=== PATIENT | male | born 1930 | race Caucasian/White ===

== ENCOUNTER 2018-01-07 16:51 | Inpatient (IN) | payer MEDICARE ==
[~2018-01-07] VITALS: Ht 172.7 cm; Wt 82.6 kg
[~2018-01-07 16:51] MED LIST: ASPI325T8 PO; CARV25TA2 PO; CLOP75TA57 PO; GLIM2TAB2 PO; HYDR12.58 PO; ISOS120T2 PO; METF10007 PO; NITR0.4T22 SL; PRAV40TA2 PO
[2018-01-07] MEDS ORDERED: PRAV40TA2 PO (18:15)
[2018-01-07] MEDS ORDERED: ASPI-612 PO (18:15)
[2018-01-07] MEDS ORDERED: CLOP75TA PO (18:15)
[2018-01-07] MEDS ORDERED: FURO-68 PO (18:15)
[2018-01-07] MEDS ORDERED: GLIM2TAB2 PO (18:15)
[2018-01-07] MEDS ORDERED: CARV12.52 PO (18:15)
[2018-01-07] MEDS ORDERED: LISI-338 PO (18:15)
[2018-01-07] MEDS ORDERED: NITR0.4T22 SL (18:15)
[2018-01-07] MEDS ORDERED: METF10007 PO (18:15)
[2018-01-07] MEDS ORDERED: ISOS120T2 PO (18:15)
[2018-01-07] MEDS ORDERED: ACETAMINOPHEN 325 MG TABLET. PO PRN (18:30)
[2018-01-07] MEDS ORDERED: cloNIDine HCL 0.1 MG TABLET PO PRN (18:30)
[2018-01-07] MEDS ORDERED: oxyCODONE/APAP 5/325 1 TAB TABLET PO PRN (18:30)
[2018-01-07 19:00] VITALS: BP 134/49
[2018-01-07] MEDS: IV NORMAL SALINE 1000ML BAG 1,000 ML IV SCH (19:15)
[2018-01-07] MEDS: fentaNYL PF VIAL 100 MCG/2 ML VIAL IV PRN (19:20)
--- NOTE | 2018-01-07 19:55 | PDOC2 ---
CONSULT Date of Consult Date of Consult DATE: 01/07/18 TIME: 19:41 Reason for Consult Reason for Consult: [facility] Referring Physician Referring Physician: Jeremiaho Identification/Chief Complaint Chief Complaint [facility] pain Source Source: Chart review, Patient History of Present Illness Reason for Visit: 87 yo M with hx of RIH repair by Dr. Yen in 2014. Pt reports had testicle removed at that time. Had difficulty with constipation a recently and redeveloped [facility]. This was painful and unable to pushed back. He presented to ER at [facility] and hernia was able to be reduced, but it immediately comes back. Pt reports problems with constipation. Accompanied by supportive family. Past Medical History Cardiovascular: CAD, HTN, Aortic stenosis (pt reports needing to have a aortic valve replacement, but did not pursue secondary to risk of M&M), Other (angina) CENTRAL NERVOUS SYSTEM: CVA Past Surgical History Past Surgical History: Cholecystectomy Family History Family History: No Significant Social History No ALCOHOL: none Lives: with Family Current Medications Current Medications Current Medications Sodium Chloride 1,000 ml @ 100 mls/hr Q10H IV Last administered on 01/07/18at 19 :15; Start 01/07/18 at 18:30 Oxycodone/ Acetaminophen (Percocet 5/325) 1 tab PRN Q4HRS PRN PO MODERATE PAIN ; Start 01/07/18 at 18:30 Oxycodone/ Acetaminophen (Percocet 5/325) 2 tab PRN Q6HRS PRN PO SEVERE PAIN; Start 01/07/18 at 18:30 Clonidine HCl (Catapres) 0.1 mg PRN Q1HR PRN PO HYPERTENSION, SEE COMMENTS; Start 01/07/18 at 18:30 Fentanyl Citrate (Fentanyl 2ml Vial) 50 mcg PRN Q2HR PRN IV PAIN Last administered on 01/07/18at 19:20; Start 01/07/18 at 18:30 Ondansetron HCl (Zofran) 4 mg PRN Q6HRS PRN IV NAUSEA/VOMITING; Start 01/07/18 at 18:30 Acetaminophen (Tylenol) 650 mg PRN Q6HRS PRN PO MILD PAIN / TEMP; Start at 18:30 Cefazolin Sodium/ Dextrose 50 ml @ 100 mls/hr 1X PREOP IV ; Start 01/08/18 at 08:00; Stop 01/08/18 at 18:00; Status UNV Active Scripts Active Reported Isosorbide Mononitrate Er (Isosorbide Mononitrate) 120 Mg Tab.er.24h 2 Tab PO DAILY NITROGLYCERIN SubLingual (Nitroglycerin) 0.4 Mg Tab.subl 0.4 Mg SL PRN Q5MIN PRN Lisinopril 5 Mg Tablet 0.5 Tab PO DAILY Lasix (Furosemide) 40 Mg Tablet 1 Tab PO DAILY Carvedilol 12.5 Mg Tablet 1 Tab PO BID Clopidogrel (Clopidogrel Bisulfate) 75 Mg Tablet 1 Tab PO DAILY Pravastatin Sodium 40 Mg Tablet 1 Tab PO QHS Metformin Hcl 1,000 Mg Tablet 1,000 Mg PO BIDWMEALS Glimepiride 2 Mg Tablet 1 Tab PO BID Aspirin Ec (Aspirin) 81 Mg Tablet.dr 1 Tab PO DAILY Allergies Allergies: Coded Allergies: No Known Drug Allergies (Unverified , 01/07/18) ROS Cardiovascular: yes Chest Pain Gastrointestinal: Yes Nausea, Yes Abdominal Pain Physical Exam General: Alert, Oriented X3, Cooperative, mild distress HEENT: Atraumatic Lungs: Other (mild increased work of breathing) Abdomen: Soft, No tenderness, Other (large RIH, reducible, with immediate recurrent) Extremities: No clubbing, No cyanosis Skin: No rashes, No breakdown Neuro: Normal speech, Sensation intact Vitals VITALS Vital Signs Date Time Temp Pulse Resp B/P (MAP) Pulse Ox O2 Delivery O2 Flow Rate FiO2 01/07/18 19:20 Room Air Labs Labs WBC at [facility]-12.9, K 5.6, Cr 2.[address] at [facility]-Large RIH with colon, appendix and small bowel with concern for SBO, chronic lung infiltrate, LIH with fat Assessment/Plan Assessment/Plan RIH with concern for SBO, although was able to be reduced. Pt concerned of recurrence of pain, since it is large, protruding and painful. Pt does represent a poor surgical candidate, given untreated heart disease. However, given pain and concern for SBO, palliative surgery is necessary, regardless of risk. Pt and pt's family appear to understand this. Pt has eaten this evening. In addition, his Cr and K are concerning. Recommend hydration with plans for surgery in AM. R/R/B/A d/w pt and pt's family. Risks, including, but not limited to: bleeding , infection, damage to surrounding structures, risk of anesthesia, risk of recurrence. They appear to understand, their questions are answered and they elect to proceed. Thanks for consult! CATHY CAPONE MD Jan 07, 2018 19:55
[2018-01-07] MEDS ORDERED: SODIUM POLYSTYRENE SULFONATE 15 GM/60 ML ORAL.SUSP. PO ONE (20:15)
[2018-01-07] MEDS ORDERED: NITROGLYCERIN SUBLINGUAL 0.4 MG BOTTLE OF 25. SL PRN (20:30)
[2018-01-07] MEDS ORDERED: DEXTROSE 50% 25 GM / 50ML DISP.SYRIN. IV PRN (20:30)
[2018-01-07] MEDS: MORPHINE SULFATE 2 MG/ML VIAL. IV PRN ×2 (20:45→22:56)
[2018-01-07] MEDS: ATORVASTATIN CALCIUM 10 MG TABLET. PO SCH (20:53)
[2018-01-07] MEDS: CARVEDILOL 12.5 MG TABLET. PO SCH (21:02)
[2018-01-07 23:00] VITALS: BP 144/48
[2018-01-08] VITALS (20 sets, daily range): BP systolic 71–144; BP diastolic 34–69
[2018-01-08] MEDS: MORPHINE SULFATE 2 MG/ML VIAL. IV PRN ×4 (02:51→14:53)
[2018-01-08] MEDS: ONDANSETRON PF 4 MG/2 ML VIAL. IV PRN ×2 (02:51→10:04)
[2018-01-08] MEDS: fentaNYL PF VIAL 100 MCG/2 ML VIAL IV PRN ×2 (03:58→19:42)
[2018-01-08 05:10] LABS: BASO % 1 % (0-3); EOS % 1 % (0-3); HEMATOCRIT 38.5 % (39.0-53.0); HEMOGLOBIN 13.1 g/dL (13.0-17.5); LYMPH # 0.2 x10^3/uL (1.0-4.8); LYMPH % 5 % (24-48); MEAN CORPUSCULAR HEMOGLOBIN 31 pg (25-35); MEAN CORPUSCULAR HGB CONC 34 g/dL (31-37); MEAN CORPUSCULAR VOLUME 91 fL (79-100); MONO # 0.2 x10^3/uL (0.0-1.1); MONO % 5 % (0-9); NEUT # 4.4 x10^3uL (1.8-7.7); NEUT % 89 % (31-73); PLATELET COUNT 215 x10^3/uL (140-400); RED BLOOD COUNT 4.21 x10^6/uL (4.30-5.70); RED CELL DISTRIBUTION WIDTH 14.9 % (11.5-14.5); WHITE BLOOD COUNT 4.9 x10^3/uL (4.0-11.0)
[2018-01-08 05:19] LABS: CALCIUM 9.1 mg/dL (8.5-10.1); GFR 31.6
[2018-01-08] MEDS: IV NORMAL SALINE 1000ML BAG 1,000 ML IV SCH ×4 (05:30→23:51)
[2018-01-08 05:38] LABS: PROTHROMBIN TIME PATIENT 14.2 SEC (11.7-14.0)
[2018-01-08] MEDS ORDERED: BUPIVACAINE-EPI 0.5%-1:200000 50 ML VIAL. ONE (06:22)
[2018-01-08 07:24] LABS: % BANDS 16 % (0-9); % LYMPHS 2 % (24-48); % MONOS 1 % (0-10); % SEGS 81 % (35-66); PLT ESTIMATE ADEQUATE (ADEQUATE)
[2018-01-08] MEDS ORDERED: fentaNYL PF VIAL 100 MCG/2 ML VIAL ONE (07:34)
[2018-01-08] MEDS ORDERED: ROCURONIUM 50 MG/5 ML VIAL. ONE (07:34)
[2018-01-08] MEDS ORDERED: DEXAMETHASONE SOD PHOS 20 MG/5 ML VIAL. ONE (07:37)
[2018-01-08] MEDS ORDERED: ONDANSETRON PF 4 MG/2 ML VIAL. ONE (07:37)
[2018-01-08] MEDS ORDERED: PROPOFOL 20 ML IV ONE (07:37)
[2018-01-08] MEDS: INSULIN LISPRO 300 UNITS/3 ML INSULN.PEN. SQ SCH ×3 (08:00→14:00)
[2018-01-08] MEDS ORDERED: IV RINGERS,LACTATED 1000ML 1,000 ML IV SCH ×2 (08:01→13:19)
[2018-01-08] MEDS ORDERED: HYDROmorphone 2 MG/ML VIAL IV PRN (08:15)
[2018-01-08] MEDS ORDERED: fentaNYL PF VIAL 100 MCG/2 ML VIAL IV PRN ×2 (08:15)
[2018-01-08] MEDS ORDERED: LIDOCAINE 1% PF 2 ML VIAL. ID PRN (08:15)
[2018-01-08] MEDS ORDERED: PROCHLORPERAZINE 10 MG/2 ML VIAL. IV PRN (08:15)
[2018-01-08] MEDS ORDERED: ONDANSETRON PF 4 MG/2 ML VIAL. IV PRN (08:15)
[2018-01-08] MEDS ORDERED: MORPHINE SULFATE 2 MG/ML VIAL. IV PRN ×2 (08:15→13:30)
[2018-01-08] MEDS: CARVEDILOL 12.5 MG TABLET. PO SCH ×2 (08:21→17:00)
[2018-01-08] MEDS: ISOSORBIDE MONONITRATE ER 30 MG TAB.ER.24H PO SCH (09:00)
[2018-01-08] MEDS: FUROSEMIDE 40 MG TABLET. PO SCH (09:00)
--- NOTE | 2018-01-08 09:08 | PDOC ---
SURGICAL PROGRESS NOTE Subjective 87 yo M with [facility], pt reports persistent RIH pain, coughing up bloody mucous. No N/V. No flatus or stool. Voiding. Extensively d/w pt and pt's very supportive family. Pt is high risk for perioperative complications. Have asked cards to evaluate. However, pt reports significant pain, not addressed by narcotic pain meds. R/R/B/A d/w pt and pt's family. Risks, including, but not limited to: bleeding , infection, damage to surrounding structures, risk of anesthesia, risk of recurrence. They appear to understand, their questions are answered and they elect to proceed. Will start IV abx for pneumonia (bloody sputum, chronic infiltrate on CT). Vital Signs Vital Signs Date Time Temp Pulse Resp B/P (MAP) Pulse Ox O2 Delivery O2 Flow Rate FiO2 01/08/18 08:21 63 114/35 01/08/18 07:50 18 100 Room Air 01/08/18 07:00 98.1 98.1 I&O Intake and Output 01/08/18 07:00 Output Total 500 ml Balance -500 ml Output Urine Total 500 ml Labs Laboratory Tests Test 01/07/18 17:53 01/08/18 03:45 Glucose (Fingerstick) 178 mg/dL (70-99) White Blood Count 4.9 x10^3/uL (4.0-11.0) Red Blood Count 4.21 x10^6/uL (4.30-5.70) Hemoglobin 13.1 g/dL (13.0-17.5) Hematocrit 38.5 % (39.0-53.0) Mean Corpuscular Volume 91 fL (79-100) Mean Corpuscular Hemoglobin 31 pg (25-35) Mean Corpuscular Hemoglobin Concent 34 g/dL (31-37) Red Cell Distribution Width 14.9 % (11.5-14.5) Platelet Count 215 x10^3/uL (140-400) Neutrophils (%) (Auto) 89 % (31-73) Lymphocytes (%) (Auto) 5 % (24-48) Monocytes (%) (Auto) 5 % (0-9) Eosinophils (%) (Auto) 1 % (0-3) Basophils (%) (Auto) 1 % (0-3) Neutrophils # (Auto) 4.4 x10^3uL (1.8-7.7) Lymphocytes # (Auto) 0.2 x10^3/uL (1.0-4.8) Monocytes # (Auto) 0.2 x10^3/uL (0.0-1.1) Eosinophils # (Auto) 0.0 x10^3/uL (0.0-0.7) Basophils # (Auto) 0.0 x10^3/uL (0.0-0.2) Segmented Neutrophils % 81 % (35-66) Band Neutrophils % 16 % (0-9) Lymphocytes % 2 % (24-48) Monocytes % 1 % (0-10) Platelet Estimate Adequate (ADEQUATE) Prothrombin Time 14.2 SEC (11.7-14.0) Prothromb Time International Ratio 1.2 (0.8-1.1) Sodium Level 140 mmol/L (136-145) Potassium Level 5.0 mmol/L (3.5-5.1) Chloride Level 104 mmol/L (98-107) Carbon Dioxide Level 29 mmol/L (21-32) Anion Gap 7 (6-14) Blood Urea Nitrogen 52 mg/dL (8-26) Creatinine 2.0 mg/dL (0.7-1.3) Estimated GFR (Cockcroft-Gault) 31.6 Glucose Level 187 mg/dL (70-99) Calcium Level 9.1 mg/dL (8.5-10.1) Laboratory Tests Test 01/07/18 17:53 01/08/18 03:45 Glucose (Fingerstick) 178 mg/dL (70-99) White Blood Count 4.9 x10^3/uL (4.0-11.0) Red Blood Count 4.21 x10^6/uL (4.30-5.70) Hemoglobin 13.1 g/dL (13.0-17.5) Hematocrit 38.5 % (39.0-53.0) Mean Corpuscular Volume 91 fL (79-100) Mean Corpuscular Hemoglobin 31 pg (25-35) Mean Corpuscular Hemoglobin Concent 34 g/dL (31-37) Red Cell Distribution Width 14.9 % (11.5-14.5) Platelet Count 215 x10^3/uL (140-400) Neutrophils (%) (Auto) 89 % (31-73) Lymphocytes (%) (Auto) 5 % (24-48) Monocytes (%) (Auto) 5 % (0-9) Eosinophils (%) (Auto) 1 % (0-3) Basophils (%) (Auto) 1 % (0-3) Neutrophils # (Auto) 4.4 x10^3uL (1.8-7.7) Lymphocytes # (Auto) 0.2 x10^3/uL (1.0-4.8) Monocytes # (Auto) 0.2 x10^3/uL (0.0-1.1) Eosinophils # (Auto) 0.0 x10^3/uL (0.0-0.7) Basophils # (Auto) 0.0 x10^3/uL (0.0-0.2) Segmented Neutrophils % 81 % (35-66) Band Neutrophils % 16 % (0-9) Lymphocytes % 2 % (24-48) Monocytes % 1 % (0-10) Platelet Estimate Adequate (ADEQUATE) Prothrombin Time 14.2 SEC (11.7-14.0) Prothromb Time International Ratio 1.2 (0.8-1.1) Sodium Level 140 mmol/L (136-145) Potassium Level 5.0 mmol/L (3.5-5.1) Chloride Level 104 mmol/L (98-107) Carbon Dioxide Level 29 mmol/L (21-32) Anion Gap 7 (6-14) Blood Urea Nitrogen 52 mg/dL (8-26) Creatinine 2.0 mg/dL (0.7-1.3) Estimated GFR (Cockcroft-Gault) 31.6 Glucose Level 187 mg/dL (70-99) Calcium Level 9.1 mg/dL (8.5-10.1) CATHY CAPONE MD Jan 08, 2018 09:08
[2018-01-08] MEDS ORDERED: PHENYLEPHRINE in 0.9% NACL PF 1 MG/10 ML SYRINGE. IV ONE (11:55)
--- NOTE | 2018-01-08 12:13 | PDOC2 ---
CONSULT Date of Consult Date of Consult DATE: 01/08/18 TIME: 12:04 Reason for Consult Reason for Consult: Surgical clearance Referring Physician Referring Physician: Dr Jaimes Identification/Chief Complaint Chief Complaint Abdominal and groin pain History of Present Illness Reason for Visit: This patient is an 87-year-old gentleman that has a known history of coronary artery disease that is status post CABG and also has valvular heart disease with aortic stenosis and aortic insufficiency. He had an inguinal hernia repair done about 3 years ago but he had a recurrence of the hernia and comes in with a lot of abdominal pain and initially went to the emergency room at [facility] where they were able to reduce it but he comes right back out. Presently he is in a lot of pain. He was seen by the surgeons and he needs to have the hernia reoperated and also may need to have bowel resection for a possibly strangulated segment of bowel. Patient has known angina and he frequently takes nitroglycerin for that but is not having any chest pains at this time. He has been seen by a installation supervisor at another institution and he was judged not to be a good candidate for aortic valve replacement. The patient has no cardiac complaints at this time only about that the groin and abdominal pain. He's had a permanent pacemaker for over 25 years and he is on his fifth generator. The patient is 100% paced. Past Medical History Cardiovascular: CAD, HTN, Aortic stenosis (pt reports needing to have a aortic valve replacement, but did not pursue secondary to risk of M&M), Valve insufficiency, Other (angina) CENTRAL NERVOUS SYSTEM: CVA Past Surgical History Past Surgical History: Cholecystectomy Family History Family History: No Significant Social History No ALCOHOL: none Lives: with Family Current Medications Current Medications Current Medications Sodium Chloride 1,000 ml @ 100 mls/hr Q10H IV Last administered on 01/08/18at 05 :30; Start 01/07/18 at 18:30 Oxycodone/ Acetaminophen (Percocet 5/325) 1 tab PRN Q4HRS PRN PO MODERATE PAIN ; Start 01/07/18 at 18:30 Oxycodone/ Acetaminophen (Percocet 5/325) 2 tab PRN Q6HRS PRN PO SEVERE PAIN Last administered on 01/07/18at 23:00; Start 01/07/18 at 18:30 Clonidine HCl (Catapres) 0.1 mg PRN Q1HR PRN PO HYPERTENSION, SEE COMMENTS; Start 01/07/18 at 18:30 Fentanyl Citrate (Fentanyl 2ml Vial) 50 mcg PRN Q2HR PRN IV PAIN Last administered on 01/08/18at 03:58; Start 01/07/18 at 18:30 Ondansetron HCl (Zofran) 4 mg PRN Q6HRS PRN IV NAUSEA/VOMITING Last administered on 01/08/18at 10:04; Start 01/07/18 at 18:30 Acetaminophen (Tylenol) 650 mg PRN Q6HRS PRN PO MILD PAIN / TEMP; Start at 18:30 Cefazolin Sodium/ Dextrose 50 ml @ 100 mls/hr 1X PREOP IV ; Start 01/08/18 at 08:00; Stop 01/08/18 at 18:00 Morphine Sulfate (Morphine Sulfate) 2 mg PRN Q2HR PRN IV PAIN Last administered on 01/08/18at 09:24; Start 01/07/18 at 20:00 Sodium Polystyrene Sulfonate (Kayexalate) 15 gm 1X ONCE PO Last administered on 01/07/18at 20:48; Start 01/07/18 at 20:15; Stop 01/07/18 at 20:16; Status DC Carvedilol (Coreg) 12.5 mg BIDWMEALS PO Last administered on 01/08/18at 08:21; Start 01/07/18 at 21:00 Furosemide (Lasix) 40 mg DAILY PO ; Start 01/08/18 at 09:00 Nitroglycerin (Nitrostat) 0.4 mg PRN Q5MIN PRN SL CHEST PAIN; Start 01/07/18 at 20:30 Isosorbide Mononitrate (Imdur) 240 mg DAILY PO ; Start 01/08/18 at 09:00 Atorvastatin Calcium (Lipitor) 10 mg QHS PO Last administered on 01/07/18at 20:53 ; Start 01/07/18 at 21:00 Insulin Human Lispro (HumaLOG) 0-9 UNITS TIDWMEALS SQ ; Start 01/08/18 at 08:00 Dextrose (Dextrose 50%-Water Syringe) 12.5 gm PRN Q15MIN PRN IV SEE COMMENTS; Start 01/07/18 at 20:30 Bupivacaine HCl/ Epinephrine Bitart (Marcaine-Epi 0.5%-1:[id number]) 50 ml STK-MED ONCE .ROUTE ; Start 01/08/18 at 06:22; Stop 01/08/18 at 07:22; Status DC Fentanyl Citrate (Fentanyl 2ml Vial) 100 mcg STK-MED ONCE .ROUTE ; Start at 07:34; Stop 01/08/18 at 07:35; Status DC Rocuronium [place] (Zemuron) 50 mg STK-MED ONCE .ROUTE ; Start 01/08/18 at 07:34 ; Stop 01/08/18 at 07:35; Status DC Propofol 20 ml @ As Directed STK-MED ONCE IV ; Start 01/08/18 at 07:37; Stop 01/08 at 07:38; Status DC Dexamethasone Sodium Phosphate (Decadron) 20 mg STK-MED ONCE .ROUTE ; Start 01/08 at 07:37; Stop 01/08/18 at 07:38; Status DC Ondansetron HCl (Zofran) 4 mg STK-MED ONCE .ROUTE ; Start 01/08/18 at 07:37; Stop 01/08/18 at 07:38; Status DC Ondansetron HCl (Zofran) 4 mg PRN Q6HRS PRN IV NAUSEA/VOMITING; Start 01/08/18 at 08:15; Stop 01/09/18 at 08:14 Fentanyl Citrate (Fentanyl 2ml Vial) 25 mcg PRN Q5MIN PRN IV MILD PAIN; Start 01/08/18 at 08:15; Stop 01/09/18 at 08:14 Fentanyl Citrate (Fentanyl 2ml Vial) 50 mcg PRN Q5MIN PRN IV MODERATE TO SEVERE PAIN; Start 01/08/18 at 08:15; Stop 01/09/18 at 08:14 Morphine Sulfate (Morphine Sulfate) 1 mg PRN Q10MIN PRN IV SEVERE PAIN; Start 01/08/18 at 08:15; Stop 01/09/18 at 08:14 Ringer's Solution 1,000 ml @ 30 mls/hr Q24H IV ; Start 01/08/18 at 08:01; Stop 01/08/18 at 20:00 Lidocaine HCl (Xylocaine-Mpf 1% 2ml Vial) 2 ml 1X PRN PRN ID IV START; Start 9 /2/18 at 08:15; Stop 01/09/18 at 08:14 Hydromorphone HCl (Dilaudid) 0.5 mg PRN Q10MIN PRN IV SEV PAIN, Second choice; Start 01/08/18 at 08:15; Stop 01/09/18 at 08:14 Prochlorperazine Edisylate (Compazine) 5 mg PACU PRN PRN IV NAUSEA, MRX1; Start 01/08/18 at 08:15; Stop 01/09/18 at 08:14 Phenylephrine HCl (PHENYLEPHRINE in 0.9% NACL PF) 1 mg STK-MED ONCE IV ; Start 01/08/18 at 11:55; Stop 01/08/18 at 11:56; Status DC Active Scripts Active Reported Isosorbide Mononitrate Er (Isosorbide Mononitrate) 120 Mg Tab.er.24h 2 Tab PO DAILY NITROGLYCERIN SubLingual (Nitroglycerin) 0.4 Mg Tab.subl 0.4 Mg SL PRN Q5MIN PRN Lisinopril 5 Mg Tablet 0.5 Tab PO DAILY Lasix (Furosemide) 40 Mg Tablet 1 Tab PO DAILY Carvedilol 12.5 Mg Tablet 1 Tab PO BID Clopidogrel (Clopidogrel Bisulfate) 75 Mg Tablet 1 Tab PO DAILY Pravastatin Sodium 40 Mg Tablet 1 Tab PO QHS Metformin Hcl 1,000 Mg Tablet 1,000 Mg PO BIDWMEALS Glimepiride 2 Mg Tablet 1 Tab PO BID Aspirin Ec (Aspirin) 81 Mg Tablet.dr 1 Tab PO DAILY Allergies Allergies: Coded Allergies: No Known Drug Allergies (Unverified , 01/07/18) Physical Exam General: Alert, Oriented X3, Cooperative HEENT: Atraumatic, PERRLA Lungs: Clear to auscultation Heart: Regular rate, Other (1 to 2/6 systolic murmur and 2/6 diastolic murmur) Abdomen: Other (abdominal tenderness. Bowel sounds are increased) Extremities: No edema Psych/Mental Status: Mental status NL Vitals VITALS Vital Signs Date Time Temp Pulse Resp B/P (MAP) Pulse Ox O2 Delivery O2 Flow Rate FiO2 01/08/18 10:00 17 100 Room Air 01/08/18 08:21 63 114/35 01/08/18 07:00 98.1 98.1 Labs Labs Laboratory Tests Test 01/07/18 17:53 01/08/18 03:45 Glucose (Fingerstick) 178 mg/dL (70-99) White Blood Count 4.9 x10^3/uL (4.0-11.0) Red Blood Count 4.21 x10^6/uL (4.30-5.70) Hemoglobin 13.1 g/dL (13.0-17.5) Hematocrit 38.5 % (39.0-53.0) Mean Corpuscular Volume 91 fL (79-100) Mean Corpuscular Hemoglobin 31 pg (25-35) Mean Corpuscular Hemoglobin Concent 34 g/dL (31-37) Red Cell Distribution Width 14.9 % (11.5-14.5) Platelet Count 215 x10^3/uL (140-400) Neutrophils (%) (Auto) 89 % (31-73) Lymphocytes (%) (Auto) 5 % (24-48) Monocytes (%) (Auto) 5 % (0-9) Eosinophils (%) (Auto) 1 % (0-3) Basophils (%) (Auto) 1 % (0-3) Neutrophils # (Auto) 4.4 x10^3uL (1.8-7.7) Lymphocytes # (Auto) 0.2 x10^3/uL (1.0-4.8) Monocytes # (Auto) 0.2 x10^3/uL (0.0-1.1) Eosinophils # (Auto) 0.0 x10^3/uL (0.0-0.7) Basophils # (Auto) 0.0 x10^3/uL (0.0-0.2) Segmented Neutrophils % 81 % (35-66) Band Neutrophils % 16 % (0-9) Lymphocytes % 2 % (24-48) Monocytes % 1 % (0-10) Platelet Estimate Adequate (ADEQUATE) Prothrombin Time 14.2 SEC (11.7-14.0) Prothromb Time International Ratio 1.2 (0.8-1.1) Sodium Level 140 mmol/L (136-145) Potassium Level 5.0 mmol/L (3.5-5.1) Chloride Level 104 mmol/L (98-107) Carbon Dioxide Level 29 mmol/L (21-32) Anion Gap 7 (6-14) Blood Urea Nitrogen 52 mg/dL (8-26) Creatinine 2.0 mg/dL (0.7-1.3) Estimated GFR (Cockcroft-Gault) 31.6 Glucose Level 187 mg/dL (70-99) Calcium Level 9.1 mg/dL (8.5-10.1) Laboratory Tests Test 01/07/18 17:53 01/08/18 03:45 Glucose (Fingerstick) 178 mg/dL (70-99) White Blood Count 4.9 x10^3/uL (4.0-11.0) Red Blood Count 4.21 x10^6/uL (4.30-5.70) Hemoglobin 13.1 g/dL (13.0-17.5) Hematocrit 38.5 % (39.0-53.0) Mean Corpuscular Volume 91 fL (79-100) Mean Corpuscular Hemoglobin 31 pg (25-35) Mean Corpuscular Hemoglobin Concent 34 g/dL (31-37) Red Cell Distribution Width 14.9 % (11.5-14.5) Platelet Count 215 x10^3/uL (140-400) Neutrophils (%) (Auto) 89 % (31-73) Lymphocytes (%) (Auto) 5 % (24-48) Monocytes (%) (Auto) 5 % (0-9) Eosinophils (%) (Auto) 1 % (0-3) Basophils (%) (Auto) 1 % (0-3) Neutrophils # (Auto) 4.4 x10^3uL (1.8-7.7) Lymphocytes # (Auto) 0.2 x10^3/uL (1.0-4.8) Monocytes # (Auto) 0.2 x10^3/uL (0.0-1.1) Eosinophils # (Auto) 0.0 x10^3/uL (0.0-0.7) Basophils # (Auto) 0.0 x10^3/uL (0.0-0.2) Segmented Neutrophils % 81 % (35-66) Band Neutrophils % 16 % (0-9) Lymphocytes % 2 % (24-48) Monocytes % 1 % (0-10) Platelet Estimate Adequate (ADEQUATE) Prothrombin Time 14.2 SEC (11.7-14.0) Prothromb Time International Ratio 1.2 (0.8-1.1) Sodium Level 140 mmol/L (136-145) Potassium Level 5.0 mmol/L (3.5-5.1) Chloride Level 104 mmol/L (98-107) Carbon Dioxide Level 29 mmol/L (21-32) Anion Gap 7 (6-14) Blood Urea Nitrogen 52 mg/dL (8-26) Creatinine 2.0 mg/dL (0.7-1.3) Estimated GFR (Cockcroft-Gault) 31.6 Glucose Level 187 mg/dL (70-99) Calcium Level 9.1 mg/dL (8.5-10.1) Assessment/Plan Assessment/Plan Patient with a hernia that appears to be incarcerated at this time and needs to go for surgery to repair the hernia as well as a possible bowel resection. With his history of coronary artery disease, angina and valvular disease with aortic stenosis and aortic insufficiency this patient is a high surgical risk. If he has an incarcerated loop of bowel in the hernia this would not be a survivable situation for him therefore I think that there is more risky not doing the surgery than the is in doing it. I have discussed this with the patient as well as multiple family members and I have answered their questions. They have decided to proceed with the surgery and are aware of the risks involved including the possibility of . An informed consent was obtained. I will follow the patient with you. Thank you very much for asking me to participate in the care of this patient. SUZANNA PETERSON MD Jan 08, 2018 12:13
[2018-01-08] MEDS ORDERED: GLYCOPYRROLATE 1 MG/5 ML VIAL. ONE (12:20)
[2018-01-08] MEDS ORDERED: NEOSTIGMINE METHYLSULFATE 5 MG/5 ML SYRINGE. ONE (12:20)
[2018-01-08] MEDS ORDERED: SEVOFLURANE 61 TO 120 MINUTES. IH ONE (12:30)
[2018-01-08] MEDS: PROPOFOL 100 ML IV PRN ×2 (12:45→21:13)
[2018-01-08] MEDS ORDERED: PROPOFOL 100 ML IV ONE (12:53)
[2018-01-08] MEDS ORDERED: IV NORMAL SALINE 500ML BAG 500 ML IV ONE (13:15)
[2018-01-08] MEDS ORDERED: ALBUMIN HUMAN 5% 500 ML IV ONE (13:15)
[2018-01-08] MEDS ORDERED: 0.9 % SODIUM CHLORIDE 10 ML DISP.SYRIN. IV PRN (13:30)
--- NOTE | 2018-01-08 13:30 | PDOC4 ---
OPERATIVE NOTE Date: Date: Jan 08, 2018 Pre-Op Diagnosis: Incarcerated right inguinal hernia with obstruction Post-Op Diagnosis: same Procedure Performed: right inguinal hernia repair with mesh Surgeon: Spencer Capone Anesthesia Type: GETA plus local Blood Loss: minimal Specimans Obtained: hernia sac Findings: scaring from previous repair, indirect hernia with viable small bowel Complications: none Operative Note: After obtaining informed consent, and D/w Cardiology, patient was taken to OR, induced under GETA and prepped in the usual fashion. Large amount of stomach contents were evacuated via NGT. Transfer incision was made through previous scar right groin. Subcutaneous tissues divided. External oblique partially opened. Large hernia sac encountered, appeared to be soft and viable. Spermatic cord chronically adherent but dissected off. Hernia sac sharply opened. Viscera not currently within sac, and suspect was reduced with NGT and induction. Terminal ileum visualized and appeared viable. Hernia sac excised and sent to pathology. Peritoneum closed with 3 0 vicryl. Extra large mesh plug placed and tacked with 0 vicryl. Mesh only brought around spermatic cord and placed under external oblique and tacked with 0 vicryl. External oblique closed with 0 vicryl. Subcutaneous tissues closed with several layers of 0 vicryl. Skin repaired with 4 0 monocryl. Dressing placed. Wound class 1, clean. Patient tolerated procedure well and sent to ICU in stable, intubated condition. Patient remains very tenuous given extensive comorbidities. All counts correct. CATHY CAPONE MD Jan 08, 2018 13:30
--- NOTE | 2018-01-08 13:51 | RAD ---
CHEST AP ONLY Clinical indications: ETT PLACEMENT, ASPIRATION comparison: None available. Findings: ET tube is in place and the tip is located 1 cm above the level of the lexie. NG tube is in place and the tip is seen at the gastric cardia. Proximal port is located within the distal esophagus. Bipolar atrioventricular pacemaker is in place via a left subclavian approach. No pneumothorax is seen. Mild bilateral peribronchial thickening is seen. No lung consolidation or pleural effusion is seen. There is mild elevation of the right hemidiaphragm. The heart size is normal. A sternotomy is evident. The mediastinum is unremarkable. The pulmonary vasculature is unremarkable. Old healed left rib cage fractures are seen. IMPRESSION: NG tube tip is located within the gastric cardia. The proximal port of the NG tube is located within the distal esophagus. Therefore, the tube may be advanced by 14 cm. ET tube tip is located 1 cm above the level of the lexie. Mild bilateral peribronchial thickening consistent with acute or chronic bronchitis. No consolidative pneumonia is evident. There is mild elevation of the right hemidiaphragm. No pneumothorax is seen. Electronically signed by: Lee Macias MD (01/08/2018 1:47 PM) [facility]
--- NOTE | 2018-01-08 14:24 | HP ---
ADMIT DATE: 01/08/2018 CHIEF COMPLAINT: Inguinal hernia pain. HISTORY OF PRESENT ILLNESS: The patient is a pleasant 87-year-old male who basically presented with abdominal pain, was noted to have a possible incarcerated hernia. I discussed the case with the ER physician and his production illustrator, Dr. Salvador, and Dr. Elizabeth. The patient has been taken to the OR emergently. Dr. Elizabeth states he really did not find any bowel, but had to release the hernia and repair it. He has now been admitted to the ICU, seems to be in respiratory failure, in room 108. PAST MEDICAL HISTORY: Coronary artery disease, coronary artery bypass, chronic angina, aortic insufficiency, hyperlipidemia, CHF, hypertension, diabetes. ALLERGIES: None. FAMILY HISTORY: Hypertension. SOCIAL HISTORY: He is retired. He does not drink, smoke or take drugs. MEDICATIONS: Reviewed, please refer to the MRAD. He is on 11 medications. REVIEW OF SYSTEMS: Unable to obtain. The patient is on the vent. PHYSICAL EXAMINATION: VITAL SIGNS: Temperature afebrile, pulse 100, respirations 20, blood pressure 142/90. GENERAL: He is on the vent, just arrived to the ICU. A lot of people here present, even anesthesia, the production illustrator and multiple nurses. The patient appears quite ill. HEART: He has S1, S2 with a loud systolic and diastolic murmur. LUNGS: Clear. ABDOMEN: Soft and tender. There is clean, dry and intact dressing. ENDOCRINE: No thyromegaly. LYMPHATICS: No cervical nodes. HEMATOPOIETIC: No bruising. NEUROLOGICAL: He is sedated. LABORATORY DATA: White count 5, hemoglobin 13, platelets 215. Electrolytes are normal other than a BUN of 52 and a creatinine of 2, glucose is 187. ASSESSMENT AND PLAN: 1. Postop right inguinal hernia repair with mesh. 2. Respiratory failure. The patient has been admitted to the ICU. We will consult Pulmonary for vent weaning. Regarding his elevated creatinine and BUN, we will go ahead and consult Dr. Null. Gentle IV fluids, IV propofol for sedation. Wound care. We will try to resume his home meds. PROGNOSIS: Guarded. NGHIA BELL DO DR: HESHAM/tania JOB#: [id number] / [id number]
[2018-01-08 14:25] LABS: BASO % 0 % (0-3); EOS % 0 % (0-3); HEMATOCRIT 32.7 % (39.0-53.0); HEMOGLOBIN 11.1 g/dL (13.0-17.5); LYMPH # 0.1 x10^3/uL (1.0-4.8); LYMPH % 2 % (24-48); MEAN CORPUSCULAR HEMOGLOBIN 31 pg (25-35); MEAN CORPUSCULAR HGB CONC 34 g/dL (31-37); MEAN CORPUSCULAR VOLUME 92 fL (79-100); MONO # 0.5 x10^3/uL (0.0-1.1); MONO % 10 % (0-9); NEUT # 4.5 x10^3uL (1.8-7.7); NEUT % 87 % (31-73); PLATELET COUNT 178 x10^3/uL (140-400); RED BLOOD COUNT 3.56 x10^6/uL (4.30-5.70); WHITE BLOOD COUNT 5.1 x10^3/uL (4.0-11.0)
[2018-01-08 14:31] LABS: BASE EXCESS ABG -5 mmol/L (-3-3); HCO3 ABG 20 mmol/L (21-28); PCO2 ABG 35 mmHg (35-46); PO2 ABG 494 mmHg (65-108); SAT O2 ABG 99 % (92-99)
[2018-01-08 14:45] LABS: FIO2 ABG 100
[2018-01-08 14:45] LABS: ALBUMIN/GLOBULIN RATIO 0.9 (1.0-1.7); CALCIUM 8.2 mg/dL (8.5-10.1); CREATININE 1.8 mg/dL (0.7-1.3); GFR 35.7; POTASSIUM 4.9 mmol/L (3.5-5.1); TOTAL BILIRUBIN 0.7 mg/dL (0.2-1.0); TOTAL PROTEIN 6.2 g/dL (6.4-8.2)
[2018-01-08] MEDS ORDERED: NOREPINEPHRIN 8MG/250ML PREMIX 250 ML IV PRN (19:15)
[2018-01-08] MEDS: ATORVASTATIN CALCIUM 10 MG TABLET. PO SCH (21:00)
[2018-01-08] MEDS: ENOXAPARIN 40 MG/0.4 ML SYRINGE. SQ SCH (21:14)
[2018-01-09] VITALS (24 sets, daily range): BP systolic 90–138; BP diastolic 39–63
[2018-01-09] MEDS: PROPOFOL 100 ML IV PRN (06:22)
[2018-01-09 06:23] LABS: BASO % 0 % (0-3); EOS % 0 % (0-3); HEMATOCRIT 29.8 % (39.0-53.0); HEMOGLOBIN 10.1 g/dL (13.0-17.5); LYMPH # 0.4 x10^3/uL (1.0-4.8); LYMPH % 9 % (24-48); MEAN CORPUSCULAR HEMOGLOBIN 31 pg (25-35); MEAN CORPUSCULAR HGB CONC 34 g/dL (31-37); MEAN CORPUSCULAR VOLUME 91 fL (79-100); MONO # 0.9 x10^3/uL (0.0-1.1); MONO % 19 % (0-9); NEUT # 3.3 x10^3uL (1.8-7.7); NEUT % 72 % (31-73); PLATELET COUNT 150 x10^3/uL (140-400); RED BLOOD COUNT 3.27 x10^6/uL (4.30-5.70); RED CELL DISTRIBUTION WIDTH 14.7 % (11.5-14.5); WHITE BLOOD COUNT 4.6 x10^3/uL (4.0-11.0)
[2018-01-09 06:36] LABS: CREATININE 1.7 mg/dL (0.7-1.3); GFR 38.1; POTASSIUM 4.3 mmol/L (3.5-5.1)
[2018-01-09] MEDS: CARVEDILOL 12.5 MG TABLET. PO SCH ×2 (08:00→12:47)
[2018-01-09] MEDS: INSULIN LISPRO 300 UNITS/3 ML INSULN.PEN. SQ SCH ×3 (08:00→17:00)
[2018-01-09] MEDS: ISOSORBIDE MONONITRATE ER 30 MG TAB.ER.24H PO SCH (08:11)
[2018-01-09] MEDS: FUROSEMIDE 40 MG TABLET. PO SCH (08:12)
[2018-01-09] MEDS: ENOXAPARIN 40 MG/0.4 ML SYRINGE. SQ SCH (08:30)
--- NOTE | 2018-01-09 08:37 | PDOC2 ---
CONSULT Date of Consult Date of Consult DATE: 01/09/18 TIME: 08:26 Reason for Consult Reason for Consult: Kidney failure Identification/Chief Complaint Chief Complaint Unable to Obtain, Pt On vent Source Source: Chart review History of Present Illness Reason for Visit: The patient is 87-year-old CM presented with abdominal pain, was noted to have a possible incarcerated hernia. He was taken to the OR emergently. s/p release and repair of Inguinal hernia. He is in ICU for respiratory failure, He has a hx of RIH repair in 2014. He had testicle removed at that time. He was having some difficulty with constipation recently and redeveloped RIH which was painful . As per Nursing , no new concerns Voiced. UOP has been fair. BP low - he is on propofol as well Past Medical History Cardiovascular: CAD, HTN, Aortic stenosis (pt reports needing to have a aortic valve replacement, but did not pursue secondary to risk of M&M), Valve insufficiency, Other (angina) CENTRAL NERVOUS SYSTEM: CVA Past Surgical History Past Surgical History: Cholecystectomy Family History Family History: No Significant Social History No ALCOHOL: none Lives: with Family Current Medications Current Medications Current Medications Sodium Chloride 1,000 ml @ 100 mls/hr Q10H IV Last administered on 01/08/18at 23 :51; Start 01/07/18 at 18:30 Oxycodone/ Acetaminophen (Percocet 5/325) 1 tab PRN Q4HRS PRN PO MODERATE PAIN ; Start 01/07/18 at 18:30 Oxycodone/ Acetaminophen (Percocet 5/325) 2 tab PRN Q6HRS PRN PO SEVERE PAIN Last administered on 01/07/18at 23:00; Start 01/07/18 at 18:30 Clonidine HCl (Catapres) 0.1 mg PRN Q1HR PRN PO HYPERTENSION, SEE COMMENTS; Start 01/07/18 at 18:30 Fentanyl Citrate (Fentanyl 2ml Vial) 50 mcg PRN Q2HR PRN IV SEVERE PAIN Last administered on 01/08/18at 19:42; Start 01/07/18 at 18:30 Ondansetron HCl (Zofran) 4 mg PRN Q6HRS PRN IV NAUSEA/VOMITING Last administered on 01/08/18at 10:04; Start 01/07/18 at 18:30; Stop 01/08/18 at 15:25; Status DC Acetaminophen (Tylenol) 650 mg PRN Q6HRS PRN PO MILD PAIN / TEMP; Start at 18:30 Cefazolin Sodium/ Dextrose 50 ml @ 100 mls/hr 1X PREOP IV Last administered on 01/08/18at 12:24; Start 01/08/18 at 08:00; Stop 01/08/18 at 18:00; Status DC Morphine Sulfate (Morphine Sulfate) 2 mg PRN Q2HR PRN IV PAIN MODERATE TO SEVERE Last administered on 01/08/18at 14:53; Start 01/07/18 at 20:00; Stop at 15:24; Status DC Sodium Polystyrene Sulfonate (Kayexalate) 15 gm 1X ONCE PO Last administered on 01/07/18at 20:48; Start 01/07/18 at 20:15; Stop 01/07/18 at 20:16; Status DC Carvedilol (Coreg) 12.5 mg BIDWMEALS PO Last administered on 01/08/18at 08:21; Start 01/07/18 at 21:00 Furosemide (Lasix) 40 mg DAILY PO ; Start 01/08/18 at 09:00 Nitroglycerin (Nitrostat) 0.4 mg PRN Q5MIN PRN SL CHEST PAIN; Start 01/07/18 at 20:30 Isosorbide Mononitrate (Imdur) 240 mg DAILY PO ; Start 01/08/18 at 09:00 Atorvastatin Calcium (Lipitor) 10 mg QHS PO Last administered on 01/07/18at 20:53 ; Start 01/07/18 at 21:00 Insulin Human Lispro (HumaLOG) 0-9 UNITS TIDWMEALS SQ ; Start 01/08/18 at 08:00 Dextrose (Dextrose 50%-Water Syringe) 12.5 gm PRN Q15MIN PRN IV SEE COMMENTS; Start 01/07/18 at 20:30 Bupivacaine HCl/ Epinephrine Bitart (Marcaine-Epi 0.5%-[id number]) 50 ml STK-MED ONCE .ROUTE Last administered on 01/08/18at 11:56; Start 01/08/18 at 06:22; Stop 01/08/18 at 07:22; Status DC Fentanyl Citrate (Fentanyl 2ml Vial) 100 mcg STK-MED ONCE .ROUTE ; Start at 07:34; Stop 01/08/18 at 07:35; Status DC Rocuronium Huron (Zemuron) 50 mg STK-MED ONCE .ROUTE ; Start 01/08/18 at 07:34 ; Stop 01/08/18 at 07:35; Status DC Propofol 20 ml @ As Directed STK-MED ONCE IV ; Start 01/08/18 at 07:37; Stop 01/08 at 07:38; Status DC Dexamethasone Sodium Phosphate (Decadron) 20 mg STK-MED ONCE .ROUTE ; Start 01/08 at 07:37; Stop 01/08/18 at 07:38; Status DC Ondansetron HCl (Zofran) 4 mg STK-MED ONCE .ROUTE ; Start 01/08/18 at 07:37; Stop 01/08/18 at 07:38; Status DC Ondansetron HCl (Zofran) 4 mg PRN Q6HRS PRN IV NAUSEA/VOMITING; Start 01/08/18 at 08:15; Stop 01/08/18 at 15:21; Status DC Fentanyl Citrate (Fentanyl 2ml Vial) 25 mcg PRN Q5MIN PRN IV MILD PAIN; Start 01/08/18 at 08:15; Stop 01/08/18 at 15:21; Status DC Fentanyl Citrate (Fentanyl 2ml Vial) 50 mcg PRN Q5MIN PRN IV MODERATE TO SEVERE PAIN; Start 01/08/18 at 08:15; Stop 01/08/18 at 15:21; Status DC Morphine Sulfate (Morphine Sulfate) 1 mg PRN Q10MIN PRN IV SEVERE PAIN; Start 01/08/18 at 08:15; Stop 01/08/18 at 15:21; Status DC Ringer's Solution 1,000 ml @ 30 mls/hr Q24H IV ; Start 01/08/18 at 08:01; Stop 01/08/18 at 15:22; Status DC Lidocaine HCl (Xylocaine-Mpf 1% 2ml Vial) 2 ml 1X PRN PRN ID IV START; Start at 08:15; Stop 01/08/18 at 15:22; Status DC Hydromorphone HCl (Dilaudid) 0.5 mg PRN Q10MIN PRN IV SEV PAIN, Second choice; Start 01/08/18 at 08:15; Stop 01/08/18 at 15:22; Status DC Prochlorperazine Edisylate (Compazine) 5 mg PACU PRN PRN IV NAUSEA, MRX1; Start 01/08/18 at 08:15; Stop 01/08/18 at 15:22; Status DC Phenylephrine HCl (PHENYLEPHRINE in 0.9% NACL PF) 1 mg STK-MED ONCE IV ; Start 01/08/18 at 11:55; Stop 01/08/18 at 11:56; Status DC Glycopyrrolate (Robinul) 1 mg STK-MED ONCE .ROUTE ; Start 01/08/18 at 12:20; Stop 01/08/18 at 12:21; Status DC Neostigmine Methylsulfate (Neostigmine Methylsulfate) 5 mg STK-MED ONCE .ROUTE ; Start 01/08/18 at 12:20; Stop 01/08/18 at 12:21; Status DC Sevoflurane (Ultane) 60 ml STK-MED ONCE IH ; Start 01/08/18 at 12:30; Stop at 12:31; Status DC Propofol 100 ml @ As Directed STK-MED ONCE IV ; Start 01/08/18 at 12:53; Stop at 12:54; Status DC Albumin Human 500 ml @ 125 mls/hr 1X ONCE IV Last administered on 01/08/18at 13 :39; Start 01/08/18 at 13:15; Stop 01/08/18 at 17:14; Status DC Sodium Chloride 500 ml @ 500 mls/hr 1X ONCE IV ; Start 01/08/18 at 13:15; Stop 01/08/18 at 14:14; Status DC Enoxaparin Sodium (Lovenox 40mg Syringe) 40 mg Q12HR SQ Last administered on 01/08/18at 21:14; Start 01/08/18 at 21:00 Sodium Chloride (Normal Saline Flush) 3 ml QSHIFT PRN IV AFTER MEDS AND BLOOD DRAWS; Start 01/08/18 at 13:30 Ringer's Solution 1,000 ml @ 100 mls/hr Q10H IV ; Start 01/08/18 at 13:19; Stop 01/08/18 at 18:02; Status DC Morphine Sulfate (Morphine Sulfate) 1 mg PRN Q1HR PRN IV PAIN mild; Start at 13:30 Ondansetron HCl (Zofran) 4 mg PRN Q6HRS PRN IV NAUESA, 1ST CHOICE; Start at 13:30 Propofol 100 ml @ 1.238 mls/ hr CONT PRN IV SEE I/O RECORD Last administered on 01/09/18at 06:22; Start 01/08/18 at 12:45 Norepinephrine Bitartrate 250 ml @ 1.875 mls/ hr CONT PRN IV SEE I/O RECORD; Start 01/08/18 at 19:15 Active Scripts Active Reported Isosorbide Mononitrate Er (Isosorbide Mononitrate) 120 Mg Tab.er.24h 2 Tab PO DAILY NITROGLYCERIN SubLingual (Nitroglycerin) 0.4 Mg Tab.subl 0.4 Mg SL PRN Q5MIN PRN Lisinopril 5 Mg Tablet 0.5 Tab PO DAILY Lasix (Furosemide) 40 Mg Tablet 1 Tab PO DAILY Carvedilol 12.5 Mg Tablet 1 Tab PO BID Clopidogrel (Clopidogrel Bisulfate) 75 Mg Tablet 1 Tab PO DAILY Pravastatin Sodium 40 Mg Tablet 1 Tab PO QHS Metformin Hcl 1,000 Mg Tablet 1,000 Mg PO BIDWMEALS Glimepiride 2 Mg Tablet 1 Tab PO BID Aspirin Ec (Aspirin) 81 Mg Tablet.dr 1 Tab PO DAILY NITROGLYCERIN SubLingual (Nitroglycerin) 0.4 Mg Tab.subl 0.4 Mg SL PRN Q5MIN PRN Isosorbide Mononitrate Er (Isosorbide Mononitrate) 120 Mg Tab.er.24h 120 Mg PO DAILY Carvedilol 25 Mg Tablet 1 Tab PO BID Plavix (Clopidogrel Bisulfate) 75 Mg Tablet 1 Tab PO DAILY Pravastatin Sodium 40 Mg Tablet 1 Tab PO QHS Metformin Hcl 1,000 Mg Tablet 1 Tab PO BID Hydrochlorothiazide Tablet (Hydrochlorothiazide) 12.5 Mg Tablet 25 Mg PO DAILY Glimepiride 2 Mg Tablet 2 Mg PO BID Aspirin 325 Mg Tablet 1 Tab PO DAILY Allergies Allergies: Coded Allergies: niacin (Unverified Allergy, Intermediate, 01/09/18) ROS Review of System Pt On vent, sedated, unable to Obtain Physical Exam Physical Exam GENERAL: On vent , sedated HEENT-On vent neck - supple HEART: He has S1, S2 with a loud systolic and diastolic murmur. LUNGS: Clear. ABDOMEN: Soft and tender. There is clean, dry and intact dressing. NEUROLOGICAL: sedated - Ramirez + Skin No rash Vital Signs Vital Signs Date Time Temp Pulse Resp B/P (MAP) Pulse Ox O2 Delivery O2 Flow Rate FiO2 01/09/18 08:11 72 97/44 01/09/18 07:00 20 100 Ventilator 01/09/18 04:00 98.9 98.9 Assessment & Plan LAUREN - ATN /Hypotensive/Significant Cardiac Hx Baseline renal function Unknown Renal function improving, E-Lytes and acid base stable Monitor Incarcerated Rt Inguinal hernia- s/p emergent repair Hypertension- On multiple antihypertensives at home including Thiazides, Loop and [place]-I , bb etc Now Hypotensive DM- On meds Hx of CAD s/p CABG/' aortic stenosis and aortic insufficiency DW RN, No family at bedside Labs Labs Laboratory Tests Test 01/07/18 17:53 01/08/18 03:45 01/08/18 12:50 01/08/18 13:30 Glucose (Fingerstick) 178 mg/dL (70-99) White Blood Count 4.9 x10^3/uL (4.0-11.0) Red Blood Count 4.21 x10^6/uL (4.30-5.70) Hemoglobin 13.1 g/dL (13.0-17.5) Hematocrit 38.5 % (39.0-53.0) Mean Corpuscular Volume 91 fL (79-100) Mean Corpuscular Hemoglobin 31 pg (25-35) Mean Corpuscular Hemoglobin Concent 34 g/dL (31-37) Red Cell Distribution Width 14.9 % (11.5-14.5) Platelet Count 215 x10^3/uL (140-400) Neutrophils (%) (Auto) 89 % (31-73) Lymphocytes (%) (Auto) 5 % (24-48) Monocytes (%) (Auto) 5 % (0-9) Eosinophils (%) (Auto) 1 % (0-3) Basophils (%) (Auto) 1 % (0-3) Neutrophils # (Auto) 4.4 x10^3uL (1.8-7.7) Lymphocytes # (Auto) 0.2 x10^3/uL (1.0-4.8) Monocytes # (Auto) 0.2 x10^3/uL (0.0-1.1) Eosinophils # (Auto) 0.0 x10^3/uL (0.0-0.7) Basophils # (Auto) 0.0 x10^3/uL (0.0-0.2) Segmented Neutrophils % 81 % (35-66) Band Neutrophils % 16 % (0-9) Lymphocytes % 2 % (24-48) Monocytes % 1 % (0-10) Platelet Estimate Adequate (ADEQUATE) Prothrombin Time 14.2 SEC (11.7-14.0) Prothromb Time International Ratio 1.2 (0.8-1.1) Sodium Level 140 mmol/L (136-145) Potassium Level 5.0 mmol/L (3.5-5.1) Chloride Level 104 mmol/L (98-107) Carbon Dioxide Level 29 mmol/L (21-32) Anion Gap 7 (6-14) Blood Urea Nitrogen 52 mg/dL (8-26) Creatinine 2.0 mg/dL (0.7-1.3) Estimated GFR (Cockcroft-Gault) 31.6 Glucose Level 187 mg/dL (70-99) Calcium Level 9.1 mg/dL (8.5-10.1) O2 Saturation 99 % (92-99) Arterial Blood pH 7.37 (7.35-7.45) Arterial Blood pCO2 at Patient Temp 35 mmHg (35-46) Arterial Blood pO2 at Patient Temp 494 mmHg (65-108) Arterial Blood HCO3 20 mmol/L (21-28) Arterial Blood Base Excess -5 mmol/L (-3-3) FiO2 100 Nasal Screen MRSA (PCR) Negative (Negative) Test 01/08/18 14:00 01/08/18 14:08 01/09/18 06:15 White Blood Count 5.1 x10^3/uL (4.0-11.0) 4.6 x10^3/uL (4.0-11.0) Red Blood Count 3.56 x10^6/uL (4.30-5.70) 3.27 x10^6/uL (4.30-5.70) Hemoglobin 11.1 g/dL (13.0-17.5) 10.1 g/dL (13.0-17.5) Hematocrit 32.7 % (39.0-53.0) 29.8 % (39.0-53.0) Mean Corpuscular Volume 92 fL (79-100) 91 fL (79-100) Mean Corpuscular Hemoglobin 31 pg (25-35) 31 pg (25-35) Mean Corpuscular Hemoglobin Concent 34 g/dL (31-37) 34 g/dL (31-37) Red Cell Distribution Width 15.0 % (11.5-14.5) 14.7 % (11.5-14.5) Platelet Count 178 x10^3/uL (140-400) 150 x10^3/uL (140-400) Neutrophils (%) (Auto) 87 % (31-73) 72 % (31-73) Lymphocytes (%) (Auto) 2 % (24-48) 9 % (24-48) Monocytes (%) (Auto) 10 % (0-9) 19 % (0-9) Eosinophils (%) (Auto) 0 % (0-3) 0 % (0-3) Basophils (%) (Auto) 0 % (0-3) 0 % (0-3) Neutrophils # (Auto) 4.5 x10^3uL (1.8-7.7) 3.3 x10^3uL (1.8-7.7) Lymphocytes # (Auto) 0.1 x10^3/uL (1.0-4.8) 0.4 x10^3/uL (1.0-4.8) Monocytes # (Auto) 0.5 x10^3/uL (0.0-1.1) 0.9 x10^3/uL (0.0-1.1) Eosinophils # (Auto) 0.0 x10^3/uL (0.0-0.7) 0.0 x10^3/uL (0.0-0.7) Basophils # (Auto) 0.0 x10^3/uL (0.0-0.2) 0.0 x10^3/uL (0.0-0.2) Prothrombin Time 15.0 SEC (11.7-14.0) Prothromb Time International Ratio 1.2 (0.8-1.1) Sodium Level 141 mmol/L (136-145) 143 mmol/L (136-145) Potassium Level 4.9 mmol/L (3.5-5.1) 4.3 mmol/L (3.5-5.1) Chloride Level 105 mmol/L (98-107) 110 mmol/L (98-107) Carbon Dioxide Level 23 mmol/L (21-32) 21 mmol/L (21-32) Anion Gap 13 (6-14) 12 (6-14) Blood Urea Nitrogen 55 mg/dL (8-26) 50 mg/dL (8-26) Creatinine 1.8 mg/dL (0.7-1.3) 1.7 mg/dL (0.7-1.3) Estimated GFR (Cockcroft-Gault) 35.7 38.1 BUN/Creatinine Ratio 31 (6-20) Glucose Level 215 mg/dL (70-99) 95 mg/dL (70-99) Calcium Level 8.2 mg/dL (8.5-10.1) 8.0 mg/dL (8.5-10.1) Magnesium Level 2.0 mg/dL (1.8-2.4) Total Bilirubin 0.7 mg/dL (0.2-1.0) Aspartate Amino Transf (AST/SGOT) 12 U/L (15-37) Alanine Aminotransferase (ALT/SGPT) 11 U/L (16-63) Alkaline Phosphatase 62 U/L (46-116) Total Protein 6.2 g/dL (6.4-8.2) Albumin 3.0 g/dL (3.4-5.0) Albumin/Globulin Ratio 0.9 (1.0-1.7) Glucose (Fingerstick) 195 mg/dL (70-99) Laboratory Tests Test 01/08/18 12:50 01/08/18 13:30 01/08/18 14:00 01/08/18 14:08 O2 Saturation 99 % (92-99) Arterial Blood pH 7.37 (7.35-7.45) Arterial Blood pCO2 at Patient Temp 35 mmHg (35-46) Arterial Blood pO2 at Patient Temp 494 mmHg (65-108) Arterial Blood HCO3 20 mmol/L (21-28) Arterial Blood Base Excess -5 mmol/L (-3-3) FiO2 100 Nasal Screen MRSA (PCR) Negative (Negative) White Blood Count 5.1 x10^3/uL (4.0-11.0) Red Blood Count 3.56 x10^6/uL (4.30-5.70) Hemoglobin 11.1 g/dL (13.0-17.5) Hematocrit 32.7 % (39.0-53.0) Mean Corpuscular Volume 92 fL (79-100) Mean Corpuscular Hemoglobin 31 pg (25-35) Mean Corpuscular Hemoglobin Concent 34 g/dL (31-37) Red Cell Distribution Width 15.0 % (11.5-14.5) Platelet Count 178 x10^3/uL (140-400) Neutrophils (%) (Auto) 87 % (31-73) Lymphocytes (%) (Auto) 2 % (24-48) Monocytes (%) (Auto) 10 % (0-9) Eosinophils (%) (Auto) 0 % (0-3) Basophils (%) (Auto) 0 % (0-3) Neutrophils # (Auto) 4.5 x10^3uL (1.8-7.7) Lymphocytes # (Auto) 0.1 x10^3/uL (1.0-4.8) Monocytes # (Auto) 0.5 x10^3/uL (0.0-1.1) Eosinophils # (Auto) 0.0 x10^3/uL (0.0-0.7) Basophils # (Auto) 0.0 x10^3/uL (0.0-0.2) Prothrombin Time 15.0 SEC (11.7-14.0) Prothromb Time International Ratio 1.2 (0.8-1.1) Sodium Level 141 mmol/L (136-145) Potassium Level 4.9 mmol/L (3.5-5.1) Chloride Level 105 mmol/L (98-107) Carbon Dioxide Level 23 mmol/L (21-32) Anion Gap 13 (6-14) Blood Urea Nitrogen 55 mg/dL (8-26) Creatinine 1.8 mg/dL (0.7-1.3) Estimated GFR (Cockcroft-Gault) 35.7 BUN/Creatinine Ratio 31 (6-20) Glucose Level 215 mg/dL (70-99) Calcium Level 8.2 mg/dL (8.5-10.1) Magnesium Level 2.0 mg/dL (1.8-2.4) Total Bilirubin 0.7 mg/dL (0.2-1.0) Aspartate Amino Transf (AST/SGOT) 12 U/L (15-37) Alanine Aminotransferase (ALT/SGPT) 11 U/L (16-63) Alkaline Phosphatase 62 U/L (46-116) Total Protein 6.2 g/dL (6.4-8.2) Albumin 3.0 g/dL (3.4-5.0) Albumin/Globulin Ratio 0.9 (1.0-1.7) Glucose (Fingerstick) 195 mg/dL (70-99) Test 01/09/18 06:15 White Blood Count 4.6 x10^3/uL (4.0-11.0) Red Blood Count 3.27 x10^6/uL (4.30-5.70) Hemoglobin 10.1 g/dL (13.0-17.5) Hematocrit 29.8 % (39.0-53.0) Mean Corpuscular Volume 91 fL (79-100) Mean Corpuscular Hemoglobin 31 pg (25-35) Mean Corpuscular Hemoglobin Concent 34 g/dL (31-37) Red Cell Distribution Width 14.7 % (11.5-14.5) Platelet Count 150 x10^3/uL (140-400) Neutrophils (%) (Auto) 72 % (31-73) Lymphocytes (%) (Auto) 9 % (24-48) Monocytes (%) (Auto) 19 % (0-9) Eosinophils (%) (Auto) 0 % (0-3) Basophils (%) (Auto) 0 % (0-3) Neutrophils # (Auto) 3.3 x10^3uL (1.8-7.7) Lymphocytes # (Auto) 0.4 x10^3/uL (1.0-4.8) Monocytes # (Auto) 0.9 x10^3/uL (0.0-1.1) Eosinophils # (Auto) 0.0 x10^3/uL (0.0-0.7) Basophils # (Auto) 0.0 x10^3/uL (0.0-0.2) Sodium Level 143 mmol/L (136-145) Potassium Level 4.3 mmol/L (3.5-5.1) Chloride Level 110 mmol/L (98-107) Carbon Dioxide Level 21 mmol/L (21-32) Anion Gap 12 (6-14) Blood Urea Nitrogen 50 mg/dL (8-26) Creatinine 1.7 mg/dL (0.7-1.3) Estimated GFR (Cockcroft-Gault) 38.1 Glucose Level 95 mg/dL (70-99) Calcium Level 8.0 mg/dL (8.5-10.1) Review All relevant outside records, renal labs, imaging studies, telemetry/EKG's were reviewed. BRANDON FUNG MD Jan 09, 2018 08:37
[2018-01-09 09:02] LABS: BASE EXCESS ABG -3 mmol/L (-3-3); HCO3 ABG 20 mmol/L (21-28); PCO2 ABG 27 mmHg (35-46); PO2 ABG 156 mmHg (65-108); SAT O2 ABG 98 % (92-99)
[2018-01-09 09:05] LABS: FIO2 ABG 40
[2018-01-09 09:24] LABS: % ATYL 1 % (0-0); % BANDS 25 % (0-9); % LYMPHS 8 % (24-48); % MONOS 19 % (0-10); % SEGS 47 % (35-66); PLT ESTIMATE ADEQUATE (ADEQUATE)
[2018-01-09 09:26] LABS: ANISOCYTOSIS SLIGHT; BURR CELLS FEW; OVALOCYTES FEW
[2018-01-09 11:39] LABS: BASE EXCESS ABG -6 mmol/L (-3-3); HCO3 ABG 19 mmol/L (21-28); PCO2 ABG 34 mmHg (35-46); PO2 ABG 122 mmHg (65-108); SAT O2 ABG 98 % (92-99)
[2018-01-09 11:41] LABS: FIO2 ABG 40
--- NOTE | 2018-01-09 12:01 | PDOC ---
PROGRESS NOTES Subjective Subjective Patient intubated, off sedation. Alert and responsive. Objective Objective Vital Signs Date Time Temp Pulse Resp B/P (MAP) Pulse Ox O2 Delivery O2 Flow Rate FiO2 01/09/18 11:00 82 19 130/54 (79) 100 Ventilator 01/09/18 08:00 99.7 99.7 Intake and Output 01/09/18 07:00 Intake Total 3367.5 ml Output Total 4861 ml Balance -1493.5 ml Intake Oral 0 ml IV Total 3367.5 ml Output Urine Total 861 ml Gastric Drainage Total 4000 ml Physical Exam Physical Exam Moving air better today. Has some coarse breath sounds but no rales, no wheezing. No changes in heart sounds. Assessment Assessment Patient improving. Hopefully we will be able to get him extubated today. Awaiting pulmonary recommendations with regards to the ventilator. No family here at this time Comment Review of Relevant I have reviewed the following items jacob (where applicable) has been applied. Labs Laboratory Tests Test 01/07/18 17:53 01/08/18 03:45 01/08/18 12:50 01/08/18 13:30 Glucose (Fingerstick) 178 mg/dL (70-99) White Blood Count 4.9 x10^3/uL (4.0-11.0) Red Blood Count 4.21 x10^6/uL (4.30-5.70) Hemoglobin 13.1 g/dL (13.0-17.5) Hematocrit 38.5 % (39.0-53.0) Mean Corpuscular Volume 91 fL (79-100) Mean Corpuscular Hemoglobin 31 pg (25-35) Mean Corpuscular Hemoglobin Concent 34 g/dL (31-37) Red Cell Distribution Width 14.9 % (11.5-14.5) Platelet Count 215 x10^3/uL (140-400) Neutrophils (%) (Auto) 89 % (31-73) Lymphocytes (%) (Auto) 5 % (24-48) Monocytes (%) (Auto) 5 % (0-9) Eosinophils (%) (Auto) 1 % (0-3) Basophils (%) (Auto) 1 % (0-3) Neutrophils # (Auto) 4.4 x10^3uL (1.8-7.7) Lymphocytes # (Auto) 0.2 x10^3/uL (1.0-4.8) Monocytes # (Auto) 0.2 x10^3/uL (0.0-1.1) Eosinophils # (Auto) 0.0 x10^3/uL (0.0-0.7) Basophils # (Auto) 0.0 x10^3/uL (0.0-0.2) Segmented Neutrophils % 81 % (35-66) Band Neutrophils % 16 % (0-9) Lymphocytes % 2 % (24-48) Monocytes % 1 % (0-10) Platelet Estimate Adequate (ADEQUATE) Prothrombin Time 14.2 SEC (11.7-14.0) Prothromb Time International Ratio 1.2 (0.8-1.1) Sodium Level 140 mmol/L (136-145) Potassium Level 5.0 mmol/L (3.5-5.1) Chloride Level 104 mmol/L (98-107) Carbon Dioxide Level 29 mmol/L (21-32) Anion Gap 7 (6-14) Blood Urea Nitrogen 52 mg/dL (8-26) Creatinine 2.0 mg/dL (0.7-1.3) Estimated GFR (Cockcroft-Gault) 31.6 Glucose Level 187 mg/dL (70-99) Calcium Level 9.1 mg/dL (8.5-10.1) O2 Saturation 99 % (92-99) Arterial Blood pH 7.37 (7.35-7.45) Arterial Blood pCO2 at Patient Temp 35 mmHg (35-46) Arterial Blood pO2 at Patient Temp 494 mmHg (65-108) Arterial Blood HCO3 20 mmol/L (21-28) Arterial Blood Base Excess -5 mmol/L (-3-3) FiO2 100 Nasal Screen MRSA (PCR) Negative (Negative) Test 01/08/18 14:00 01/08/18 14:08 01/09/18 06:15 01/09/18 08:30 White Blood Count 5.1 x10^3/uL (4.0-11.0) 4.6 x10^3/uL (4.0-11.0) Red Blood Count 3.56 x10^6/uL (4.30-5.70) 3.27 x10^6/uL (4.30-5.70) Hemoglobin 11.1 g/dL (13.0-17.5) 10.1 g/dL (13.0-17.5) Hematocrit 32.7 % (39.0-53.0) 29.8 % (39.0-53.0) Mean Corpuscular Volume 92 fL (79-100) 91 fL (79-100) Mean Corpuscular Hemoglobin 31 pg (25-35) 31 pg (25-35) Mean Corpuscular Hemoglobin Concent 34 g/dL (31-37) 34 g/dL (31-37) Red Cell Distribution Width 15.0 % (11.5-14.5) 14.7 % (11.5-14.5) Platelet Count 178 x10^3/uL (140-400) 150 x10^3/uL (140-400) Neutrophils (%) (Auto) 87 % (31-73) 72 % (31-73) Lymphocytes (%) (Auto) 2 % (24-48) 9 % (24-48) Monocytes (%) (Auto) 10 % (0-9) 19 % (0-9) Eosinophils (%) (Auto) 0 % (0-3) 0 % (0-3) Basophils (%) (Auto) 0 % (0-3) 0 % (0-3) Neutrophils # (Auto) 4.5 x10^3uL (1.8-7.7) 3.3 x10^3uL (1.8-7.7) Lymphocytes # (Auto) 0.1 x10^3/uL (1.0-4.8) 0.4 x10^3/uL (1.0-4.8) Monocytes # (Auto) 0.5 x10^3/uL (0.0-1.1) 0.9 x10^3/uL (0.0-1.1) Eosinophils # (Auto) 0.0 x10^3/uL (0.0-0.7) 0.0 x10^3/uL (0.0-0.7) Basophils # (Auto) 0.0 x10^3/uL (0.0-0.2) 0.0 x10^3/uL (0.0-0.2) Prothrombin Time 15.0 SEC (11.7-14.0) Prothromb Time International Ratio 1.2 (0.8-1.1) Sodium Level 141 mmol/L (136-145) 143 mmol/L (136-145) Potassium Level 4.9 mmol/L (3.5-5.1) 4.3 mmol/L (3.5-5.1) Chloride Level 105 mmol/L (98-107) 110 mmol/L (98-107) Carbon Dioxide Level 23 mmol/L (21-32) 21 mmol/L (21-32) Anion Gap 13 (6-14) 12 (6-14) Blood Urea Nitrogen 55 mg/dL (8-26) 50 mg/dL (8-26) Creatinine 1.8 mg/dL (0.7-1.3) 1.7 mg/dL (0.7-1.3) Estimated GFR (Cockcroft-Gault) 35.7 38.1 BUN/Creatinine Ratio 31 (6-20) Glucose Level 215 mg/dL (70-99) 95 mg/dL (70-99) Calcium Level 8.2 mg/dL (8.5-10.1) 8.0 mg/dL (8.5-10.1) Magnesium Level 2.0 mg/dL (1.8-2.4) Total Bilirubin 0.7 mg/dL (0.2-1.0) Aspartate Amino Transf (AST/SGOT) 12 U/L (15-37) Alanine Aminotransferase (ALT/SGPT) 11 U/L (16-63) Alkaline Phosphatase 62 U/L (46-116) Total Protein 6.2 g/dL (6.4-8.2) Albumin 3.0 g/dL (3.4-5.0) Albumin/Globulin Ratio 0.9 (1.0-1.7) Glucose (Fingerstick) 195 mg/dL (70-99) Segmented Neutrophils % 47 % (35-66) Band Neutrophils % 25 % (0-9) Lymphocytes % 8 % (24-48) Atypical Lymphocytes % (Manual) 1 % (0-0) Monocytes % 19 % (0-10) Platelet Estimate Adequate (ADEQUATE) Anisocytosis Slight Ovalocytes Few Cornelius Cells Few O2 Saturation 98 % (92-99) Arterial Blood pH 7.48 (7.35-7.45) Arterial Blood pCO2 at Patient Temp 27 mmHg (35-46) Arterial Blood pO2 at Patient Temp 156 mmHg (65-108) Arterial Blood HCO3 20 mmol/L (21-28) Arterial Blood Base Excess -3 mmol/L (-3-3) FiO2 40 Test 01/09/18 11:30 O2 Saturation 98 % (92-99) Arterial Blood pH 7.36 (7.35-7.45) Arterial Blood pCO2 at Patient Temp 34 mmHg (35-46) Arterial Blood pO2 at Patient Temp 122 mmHg (65-108) Arterial Blood HCO3 19 mmol/L (21-28) Arterial Blood Base Excess -6 mmol/L (-3-3) FiO2 40 Laboratory Tests Test 01/08/18 12:50 01/08/18 13:30 01/08/18 14:00 01/08/18 14:08 O2 Saturation 99 % (92-99) Arterial Blood pH 7.37 (7.35-7.45) Arterial Blood pCO2 at Patient Temp 35 mmHg (35-46) Arterial Blood pO2 at Patient Temp 494 mmHg (65-108) Arterial Blood HCO3 20 mmol/L (21-28) Arterial Blood Base Excess -5 mmol/L (-3-3) FiO2 100 Nasal Screen MRSA (PCR) Negative (Negative) White Blood Count 5.1 x10^3/uL (4.0-11.0) Red Blood Count 3.56 x10^6/uL (4.30-5.70) Hemoglobin 11.1 g/dL (13.0-17.5) Hematocrit 32.7 % (39.0-53.0) Mean Corpuscular Volume 92 fL (79-100) Mean Corpuscular Hemoglobin 31 pg (25-35) Mean Corpuscular Hemoglobin Concent 34 g/dL (31-37) Red Cell Distribution Width 15.0 % (11.5-14.5) Platelet Count 178 x10^3/uL (140-400) Neutrophils (%) (Auto) 87 % (31-73) Lymphocytes (%) (Auto) 2 % (24-48) Monocytes (%) (Auto) 10 % (0-9) Eosinophils (%) (Auto) 0 % (0-3) Basophils (%) (Auto) 0 % (0-3) Neutrophils # (Auto) 4.5 x10^3uL (1.8-7.7) Lymphocytes # (Auto) 0.1 x10^3/uL (1.0-4.8) Monocytes # (Auto) 0.5 x10^3/uL (0.0-1.1) Eosinophils # (Auto) 0.0 x10^3/uL (0.0-0.7) Basophils # (Auto) 0.0 x10^3/uL (0.0-0.2) Prothrombin Time 15.0 SEC (11.7-14.0) Prothromb Time International Ratio 1.2 (0.8-1.1) Sodium Level 141 mmol/L (136-145) Potassium Level 4.9 mmol/L (3.5-5.1) Chloride Level 105 mmol/L (98-107) Carbon Dioxide Level 23 mmol/L (21-32) Anion Gap 13 (6-14) Blood Urea Nitrogen 55 mg/dL (8-26) Creatinine 1.8 mg/dL (0.7-1.3) Estimated GFR (Cockcroft-Gault) 35.7 BUN/Creatinine Ratio 31 (6-20) Glucose Level 215 mg/dL (70-99) Calcium Level 8.2 mg/dL (8.5-10.1) Magnesium Level 2.0 mg/dL (1.8-2.4) Total Bilirubin 0.7 mg/dL (0.2-1.0) Aspartate Amino Transf (AST/SGOT) 12 U/L (15-37) Alanine Aminotransferase (ALT/SGPT) 11 U/L (16-63) Alkaline Phosphatase 62 U/L (46-116) Total Protein 6.2 g/dL (6.4-8.2) Albumin 3.0 g/dL (3.4-5.0) Albumin/Globulin Ratio 0.9 (1.0-1.7) Glucose (Fingerstick) 195 mg/dL (70-99) Test 01/09/18 06:15 01/09/18 08:30 01/09/18 11:30 White Blood Count 4.6 x10^3/uL (4.0-11.0) Red Blood Count 3.27 x10^6/uL (4.30-5.70) Hemoglobin 10.1 g/dL (13.0-17.5) Hematocrit 29.8 % (39.0-53.0) Mean Corpuscular Volume 91 fL (79-100) Mean Corpuscular Hemoglobin 31 pg (25-35) Mean Corpuscular Hemoglobin Concent 34 g/dL (31-37) Red Cell Distribution Width 14.7 % (11.5-14.5) Platelet Count 150 x10^3/uL (140-400) Neutrophils (%) (Auto) 72 % (31-73) Lymphocytes (%) (Auto) 9 % (24-48) Monocytes (%) (Auto) 19 % (0-9) Eosinophils (%) (Auto) 0 % (0-3) Basophils (%) (Auto) 0 % (0-3) Neutrophils # (Auto) 3.3 x10^3uL (1.8-7.7) Lymphocytes # (Auto) 0.4 x10^3/uL (1.0-4.8) Monocytes # (Auto) 0.9 x10^3/uL (0.0-1.1) Eosinophils # (Auto) 0.0 x10^3/uL (0.0-0.7) Basophils # (Auto) 0.0 x10^3/uL (0.0-0.2) Segmented Neutrophils % 47 % (35-66) Band Neutrophils % 25 % (0-9) Lymphocytes % 8 % (24-48) Atypical Lymphocytes % (Manual) 1 % (0-0) Monocytes % 19 % (0-10) Platelet Estimate Adequate (ADEQUATE) Anisocytosis Slight Ovalocytes Few Cornelius Cells Few Sodium Level 143 mmol/L (136-145) Potassium Level 4.3 mmol/L (3.5-5.1) Chloride Level 110 mmol/L (98-107) Carbon Dioxide Level 21 mmol/L (21-32) Anion Gap 12 (6-14) Blood Urea Nitrogen 50 mg/dL (8-26) Creatinine 1.7 mg/dL (0.7-1.3) Estimated GFR (Cockcroft-Gault) 38.1 Glucose Level 95 mg/dL (70-99) Calcium Level 8.0 mg/dL (8.5-10.1) O2 Saturation 98 % (92-99) 98 % (92-99) Arterial Blood pH 7.48 (7.35-7.45) 7.36 (7.35-7.45) Arterial Blood pCO2 at Patient Temp 27 mmHg (35-46) 34 mmHg (35-46) Arterial Blood pO2 at Patient Temp 156 mmHg (65-108) 122 mmHg (65-108) Arterial Blood HCO3 20 mmol/L (21-28) 19 mmol/L (21-28) Arterial Blood Base Excess -3 mmol/L (-3-3) -6 mmol/L (-3-3) FiO2 40 40 Medications Current Medications Sodium Chloride 1,000 ml @ 100 mls/hr Q10H IV Last administered on 01/08/18at 23 :51; Start 01/07/18 at 18:30 Oxycodone/ Acetaminophen (Percocet 5/325) 1 tab PRN Q4HRS PRN PO MODERATE PAIN ; Start 01/07/18 at 18:30 Oxycodone/ Acetaminophen (Percocet 5/325) 2 tab PRN Q6HRS PRN PO SEVERE PAIN Last administered on 01/07/18at 23:00; Start 01/07/18 at 18:30 Clonidine HCl (Catapres) 0.1 mg PRN Q1HR PRN PO HYPERTENSION, SEE COMMENTS; Start 01/07/18 at 18:30 Fentanyl Citrate (Fentanyl 2ml Vial) 50 mcg PRN Q2HR PRN IV SEVERE PAIN Last administered on 01/08/18at 19:42; Start 01/07/18 at 18:30 Ondansetron HCl (Zofran) 4 mg PRN Q6HRS PRN IV NAUSEA/VOMITING Last administered on 01/08/18at 10:04; Start 01/07/18 at 18:30; Stop 01/08/18 at 15:25; Status DC Acetaminophen (Tylenol) 650 mg PRN Q6HRS PRN PO MILD PAIN / TEMP; Start at 18:30 Cefazolin Sodium/ Dextrose 50 ml @ 100 mls/hr 1X PREOP IV Last administered on 01/08/18at 12:24; Start 01/08/18 at 08:00; Stop 01/08/18 at 18:00; Status DC Morphine Sulfate (Morphine Sulfate) 2 mg PRN Q2HR PRN IV PAIN MODERATE TO SEVERE Last administered on 01/08/18at 14:53; Start 01/07/18 at 20:00; Stop at 15:24; Status DC Sodium Polystyrene Sulfonate (Kayexalate) 15 gm 1X ONCE PO Last administered on 01/07/18at 20:48; Start 01/07/18 at 20:15; Stop 01/07/18 at 20:16; Status DC Carvedilol (Coreg) 12.5 mg BIDWMEALS PO Last administered on 01/08/18at 08:21; Start 01/07/18 at 21:00 Furosemide (Lasix) 40 mg DAILY PO ; Start 01/08/18 at 09:00 Nitroglycerin (Nitrostat) 0.4 mg PRN Q5MIN PRN SL CHEST PAIN; Start 01/07/18 at 20:30 Isosorbide Mononitrate (Imdur) 240 mg DAILY PO ; Start 01/08/18 at 09:00 Atorvastatin Calcium (Lipitor) 10 mg QHS PO Last administered on 01/07/18at 20:53 ; Start 01/07/18 at 21:00 Insulin Human Lispro (HumaLOG) 0-9 UNITS TIDWMEALS SQ ; Start 01/08/18 at 08:00 Dextrose (Dextrose 50%-Water Syringe) 12.5 gm PRN Q15MIN PRN IV SEE COMMENTS; Start 01/07/18 at 20:30 Bupivacaine HCl/ Epinephrine Bitart (Marcaine-Epi 0.5%-[id number]) 50 ml STK-MED ONCE .ROUTE Last administered on 01/08/18at 11:56; Start 01/08/18 at 06:22; Stop 01/08/18 at 07:22; Status DC Fentanyl Citrate (Fentanyl 2ml Vial) 100 mcg STK-MED ONCE .ROUTE ; Start at 07:34; Stop 01/08/18 at 07:35; Status DC Rocuronium [place] (Zemuron) 50 mg STK-MED ONCE .ROUTE ; Start 01/08/18 at 07:34 ; Stop 01/08/18 at 07:35; Status DC Propofol 20 ml @ As Directed STK-MED ONCE IV ; Start 01/08/18 at 07:37; Stop 01/08 at 07:38; Status DC Dexamethasone Sodium Phosphate (Decadron) 20 mg STK-MED ONCE .ROUTE ; Start 01/08 at 07:37; Stop 01/08/18 at 07:38; Status DC Ondansetron HCl (Zofran) 4 mg STK-MED ONCE .ROUTE ; Start 01/08/18 at 07:37; Stop 01/08/18 at 07:38; Status DC Ondansetron HCl (Zofran) 4 mg PRN Q6HRS PRN IV NAUSEA/VOMITING; Start 01/08/18 at 08:15; Stop 01/08/18 at 15:21; Status DC Fentanyl Citrate (Fentanyl 2ml Vial) 25 mcg PRN Q5MIN PRN IV MILD PAIN; Start 01/08/18 at 08:15; Stop 01/08/18 at 15:21; Status DC Fentanyl Citrate (Fentanyl 2ml Vial) 50 mcg PRN Q5MIN PRN IV MODERATE TO SEVERE PAIN; Start 01/08/18 at 08:15; Stop 01/08/18 at 15:21; Status DC Morphine Sulfate (Morphine Sulfate) 1 mg PRN Q10MIN PRN IV SEVERE PAIN; Start 01/08/18 at 08:15; Stop 01/08/18 at 15:21; Status DC Ringer's Solution 1,000 ml @ 30 mls/hr Q24H IV ; Start 01/08/18 at 08:01; Stop 01/08/18 at 15:22; Status DC Lidocaine HCl (Xylocaine-Mpf 1% 2ml Vial) 2 ml 1X PRN PRN ID IV START; Start at 08:15; Stop 01/08/18 at 15:22; Status DC Hydromorphone HCl (Dilaudid) 0.5 mg PRN Q10MIN PRN IV SEV PAIN, Second choice; Start 01/08/18 at 08:15; Stop 01/08/18 at 15:22; Status DC Prochlorperazine Edisylate (Compazine) 5 mg PACU PRN PRN IV NAUSEA, MRX1; Start 01/08/18 at 08:15; Stop 01/08/18 at 15:22; Status DC Phenylephrine HCl (PHENYLEPHRINE in 0.9% NACL PF) 1 mg STK-MED ONCE IV ; Start 01/08/18 at 11:55; Stop 01/08/18 at 11:56; Status DC Glycopyrrolate (Robinul) 1 mg STK-MED ONCE .ROUTE ; Start 01/08/18 at 12:20; Stop 01/08/18 at 12:21; Status DC Neostigmine Methylsulfate (Neostigmine Methylsulfate) 5 mg STK-MED ONCE .ROUTE ; Start 01/08/18 at 12:20; Stop 01/08/18 at 12:21; Status DC Sevoflurane (Ultane) 60 ml STK-MED ONCE IH ; Start 01/08/18 at 12:30; Stop at 12:31; Status DC Propofol 100 ml @ As Directed STK-MED ONCE IV ; Start 01/08/18 at 12:53; Stop at 12:54; Status DC Albumin Human 500 ml @ 125 mls/hr 1X ONCE IV Last administered on 01/08/18at 13 :39; Start 01/08/18 at 13:15; Stop 01/08/18 at 17:14; Status DC Sodium Chloride 500 ml @ 500 mls/hr 1X ONCE IV ; Start 01/08/18 at 13:15; Stop 01/08/18 at 14:14; Status DC Enoxaparin Sodium (Lovenox 40mg Syringe) 40 mg Q12HR SQ Last administered on 01/09/18at 08:30; Start 01/08/18 at 21:00; Stop 01/09/18 at 10:10; Status DC Sodium Chloride (Normal Saline Flush) 3 ml QSHIFT PRN IV AFTER MEDS AND BLOOD DRAWS; Start 01/08/18 at 13:30 Ringer's Solution 1,000 ml @ 100 mls/hr Q10H IV ; Start 01/08/18 at 13:19; Stop 01/08/18 at 18:02; Status DC Morphine Sulfate (Morphine Sulfate) 1 mg PRN Q1HR PRN IV PAIN mild; Start at 13:30 Ondansetron HCl (Zofran) 4 mg PRN Q6HRS PRN IV NAUESA, 1ST CHOICE; Start at 13:30 Propofol 100 ml @ 1.238 mls/ hr CONT PRN IV SEE I/O RECORD Last administered on 01/09/18at 06:22; Start 01/08/18 at 12:45 Norepinephrine Bitartrate 250 ml @ 1.875 mls/ hr CONT PRN IV SEE I/O RECORD; Start 01/08/18 at 19:15 Enoxaparin Sodium (Lovenox 40mg Syringe) 40 mg DAILY SQ ; Start 01/10/18 at 09:00 Active Scripts Active Reported Isosorbide Mononitrate Er (Isosorbide Mononitrate) 120 Mg Tab.er.24h 2 Tab PO DAILY NITROGLYCERIN SubLingual (Nitroglycerin) 0.4 Mg Tab.subl 0.4 Mg SL PRN Q5MIN PRN Lisinopril 5 Mg Tablet 0.5 Tab PO DAILY Lasix (Furosemide) 40 Mg Tablet 1 Tab PO DAILY Carvedilol 12.5 Mg Tablet 1 Tab PO BID Clopidogrel (Clopidogrel Bisulfate) 75 Mg Tablet 1 Tab PO DAILY Pravastatin Sodium 40 Mg Tablet 1 Tab PO QHS Metformin Hcl 1,000 Mg Tablet 1,000 Mg PO BIDWMEALS Glimepiride 2 Mg Tablet 1 Tab PO BID Aspirin Ec (Aspirin) 81 Mg Tablet.dr 1 Tab PO DAILY NITROGLYCERIN SubLingual (Nitroglycerin) 0.4 Mg Tab.subl 0.4 Mg SL PRN Q5MIN PRN Isosorbide Mononitrate Er (Isosorbide Mononitrate) 120 Mg Tab.er.24h 120 Mg PO DAILY Carvedilol 25 Mg Tablet 1 Tab PO BID Plavix (Clopidogrel Bisulfate) 75 Mg Tablet 1 Tab PO DAILY Pravastatin Sodium 40 Mg Tablet 1 Tab PO QHS Metformin Hcl 1,000 Mg Tablet 1 Tab PO BID Hydrochlorothiazide Tablet (Hydrochlorothiazide) 12.5 Mg Tablet 25 Mg PO DAILY Glimepiride 2 Mg Tablet 2 Mg PO BID Aspirin 325 Mg Tablet 1 Tab PO DAILY Vitals/I & O Vital Sign - Last 24 Hours 01/08/18 01/08/18 01/08/18 01/08/18 12:42 12:42 12:45 12:45 Temp 97.4 97.4 Pulse 65 71 Resp 20 21 B/P (MAP) 138/52 138/52 (80) Pulse Ox 100 100 O2 Delivery Ventilator Mechanical Ventilator Ventilator 01/08/18 01/08/18 01/08/18 01/08/18 12:45 12:57 13:00 13:12 Temp 97.9 97.9 Pulse 74 74 64 Resp 20 18 B/P (MAP) 114/44 111/69 (83) 109/34 Pulse Ox 100 100 100 O2 Delivery Mechanical Ventilator Ventilator Ventilator Ventilator 01/08/18 01/08/18 01/08/18 01/08/18 13:15 13:19 13:27 13:30 Pulse 64 64 66 Resp 28 20 24 B/P (MAP) 144/61 (88) 96/38 86/45 (59) Pulse Ox 100 100 100 100 O2 Delivery Ventilator Ventilator Ventilator Ventilator 01/08/18 01/08/18 01/08/18 01/08/18 13:42 13:45 13:57 14:00 Temp 98.4 98.4 Pulse 64 64 62 64 Resp 20 22 20 22 B/P (MAP) 104/36 109/34 (59) 104/36 106/42 (63) Pulse Ox 100 100 100 100 O2 Delivery Ventilator Ventilator Ventilator Ventilator 01/08/18 01/08/18 01/08/18 01/08/18 14:12 14:27 14:30 14:31 Temp 98.4 98.4 98.4 98.4 Pulse 64 63 64 Resp 20 20 20 B/P (MAP) 106/38 117/40 107/34 (58) Pulse Ox 100 100 100 100 O2 Delivery Ventilator Ventilator Ventilator Ventilator 01/08/18 01/08/18 01/08/18 01/08/18 14:53 15:00 15:25 15:30 Pulse 64 64 Resp 20 20 20 B/P (MAP) 111/41 (64) 116/56 (76) Pulse Ox 100 100 100 100 O2 Delivery Ventilator Ventilator Ventilator Ventilator 01/08/18 01/08/18 01/08/18 01/08/18 16:00 16:00 16:52 17:06 Temp 98.5 98.5 Pulse 64 64 Resp 20 20 B/P (MAP) 118/43 (68) 104/46 (65) Pulse Ox 100 100 100 O2 Delivery Ventilator Mechanical Ventilator Ventilator Ventilator 01/08/18 01/08/18 01/08/18 01/08/18 18:01 19:00 19:42 19:42 Pulse 62 64 Resp 20 20 20 B/P (MAP) 94/34 (54) 71/35 (47) Pulse Ox 100 100 100 100 O2 Delivery Ventilator Ventilator Ventilator Ventilator 01/08/18 01/08/18 01/08/18 01/08/18 20:00 20:00 20:00 20:38 Temp 99.0 99.0 Pulse 63 Resp 20 20 B/P (MAP) 91/41 (58) Pulse Ox 100 100 O2 Delivery Mechanical Ventilator Ventilator Ventilator 01/08/18 01/08/18 01/08/18 01/08/18 21:00 22:00 23:00 23:38 Pulse 66 62 62 Resp 20 20 20 B/P (MAP) 91/39 (56) 91/40 (57) 93/41 (58) Pulse Ox 100 100 100 100 O2 Delivery Ventilator Ventilator Ventilator Ventilator 01/09/18 01/09/18 01/09/18 01/09/18 00:00 00:00 01:00 01:01 Temp 100.4 100.4 Pulse 65 67 Resp 20 20 B/P (MAP) 97/39 (58) 96/40 (58) Pulse Ox 100 100 100 O2 Delivery Ventilator Ventilator Ventilator 01/09/18 01/09/18 01/09/18 01/09/18 02:00 03:00 03:42 04:00 Pulse 63 63 Resp 20 20 B/P (MAP) 90/41 (57) 90/40 (57) Pulse Ox 100 100 100 O2 Delivery Ventilator Ventilator Ventilator 01/09/18 01/09/18 01/09/18 01/09/18 04:00 05:00 06:00 07:00 Temp 98.9 98.9 Pulse 66 69 70 71 Resp 20 20 20 20 B/P (MAP) 94/42 (59) 90/41 (57) 105/45 (65) 99/47 (64) Pulse Ox 100 100 100 100 O2 Delivery Ventilator Ventilator Ventilator Ventilator 01/09/18 01/09/18 01/09/18 01/09/18 08:00 08:00 08:00 08:00 Temp 99.7 99.7 Pulse 72 72 Resp 20 B/P (MAP) 97/44 97/44 (61) Pulse Ox 100 O2 Delivery Mechanical Ventilator Ventilator 01/09/18 01/09/18 01/09/18 01/09/18 08:11 08:30 09:00 10:00 Pulse 72 68 68 Resp 20 20 B/P (MAP) 97/44 99/42 (61) 122/53 (76) Pulse Ox 100 100 O2 Delivery Ventilator Ventilator Ventilator 01/09/18 11:00 Pulse 82 Resp 19 B/P (MAP) 130/54 (79) Pulse Ox 100 O2 Delivery Ventilator Intake and Output 01/08/18 01/08/18 01/09/18 15:00 23:00 07:00 Intake Total 1050 ml 500 ml 1817.5 ml Output Total 4190 ml 380 ml 291 ml Balance -3140 ml 120 ml 1526.5 ml SUZANNA PETERSON MD Jan 09, 2018 12:01
--- NOTE | 2018-01-09 12:51 | PDOC ---
SURGICAL PROGRESS NOTE Subjective Pt awake on vent, denies abd pain Vital Signs Vital Signs Date Time Temp Pulse Resp B/P (MAP) Pulse Ox O2 Delivery O2 Flow Rate FiO2 01/09/18 12:02 Nasal Cannula 3.0 01/09/18 12:00 97.9 90 25 131/57 (81) 100 97.9 I&O Intake and Output 01/09/18 07:00 Intake Total 3367.5 ml Output Total 4861 ml Balance -1493.5 ml Intake Oral 0 ml IV Total 3367.5 ml Output Urine Total 861 ml Gastric Drainage Total 4000 ml General: Alert, Cooperative, No acute distress Abdomen: Soft, No tenderness Labs Laboratory Tests Test 01/07/18 17:53 01/08/18 03:45 01/08/18 12:50 01/08/18 13:30 Glucose (Fingerstick) 178 mg/dL (70-99) White Blood Count 4.9 x10^3/uL (4.0-11.0) Red Blood Count 4.21 x10^6/uL (4.30-5.70) Hemoglobin 13.1 g/dL (13.0-17.5) Hematocrit 38.5 % (39.0-53.0) Mean Corpuscular Volume 91 fL (79-100) Mean Corpuscular Hemoglobin 31 pg (25-35) Mean Corpuscular Hemoglobin Concent 34 g/dL (31-37) Red Cell Distribution Width 14.9 % (11.5-14.5) Platelet Count 215 x10^3/uL (140-400) Neutrophils (%) (Auto) 89 % (31-73) Lymphocytes (%) (Auto) 5 % (24-48) Monocytes (%) (Auto) 5 % (0-9) Eosinophils (%) (Auto) 1 % (0-3) Basophils (%) (Auto) 1 % (0-3) Neutrophils # (Auto) 4.4 x10^3uL (1.8-7.7) Lymphocytes # (Auto) 0.2 x10^3/uL (1.0-4.8) Monocytes # (Auto) 0.2 x10^3/uL (0.0-1.1) Eosinophils # (Auto) 0.0 x10^3/uL (0.0-0.7) Basophils # (Auto) 0.0 x10^3/uL (0.0-0.2) Segmented Neutrophils % 81 % (35-66) Band Neutrophils % 16 % (0-9) Lymphocytes % 2 % (24-48) Monocytes % 1 % (0-10) Platelet Estimate Adequate (ADEQUATE) Prothrombin Time 14.2 SEC (11.7-14.0) Prothromb Time International Ratio 1.2 (0.8-1.1) Sodium Level 140 mmol/L (136-145) Potassium Level 5.0 mmol/L (3.5-5.1) Chloride Level 104 mmol/L (98-107) Carbon Dioxide Level 29 mmol/L (21-32) Anion Gap 7 (6-14) Blood Urea Nitrogen 52 mg/dL (8-26) Creatinine 2.0 mg/dL (0.7-1.3) Estimated GFR (Cockcroft-Gault) 31.6 Glucose Level 187 mg/dL (70-99) Calcium Level 9.1 mg/dL (8.5-10.1) O2 Saturation 99 % (92-99) Arterial Blood pH 7.37 (7.35-7.45) Arterial Blood pCO2 at Patient Temp 35 mmHg (35-46) Arterial Blood pO2 at Patient Temp 494 mmHg (65-108) Arterial Blood HCO3 20 mmol/L (21-28) Arterial Blood Base Excess -5 mmol/L (-3-3) FiO2 100 Nasal Screen MRSA (PCR) Negative (Negative) Test 01/08/18 14:00 01/08/18 14:08 01/09/18 06:15 01/09/18 08:30 White Blood Count 5.1 x10^3/uL (4.0-11.0) 4.6 x10^3/uL (4.0-11.0) Red Blood Count 3.56 x10^6/uL (4.30-5.70) 3.27 x10^6/uL (4.30-5.70) Hemoglobin 11.1 g/dL (13.0-17.5) 10.1 g/dL (13.0-17.5) Hematocrit 32.7 % (39.0-53.0) 29.8 % (39.0-53.0) Mean Corpuscular Volume 92 fL (79-100) 91 fL (79-100) Mean Corpuscular Hemoglobin 31 pg (25-35) 31 pg (25-35) Mean Corpuscular Hemoglobin Concent 34 g/dL (31-37) 34 g/dL (31-37) Red Cell Distribution Width 15.0 % (11.5-14.5) 14.7 % (11.5-14.5) Platelet Count 178 x10^3/uL (140-400) 150 x10^3/uL (140-400) Neutrophils (%) (Auto) 87 % (31-73) 72 % (31-73) Lymphocytes (%) (Auto) 2 % (24-48) 9 % (24-48) Monocytes (%) (Auto) 10 % (0-9) 19 % (0-9) Eosinophils (%) (Auto) 0 % (0-3) 0 % (0-3) Basophils (%) (Auto) 0 % (0-3) 0 % (0-3) Neutrophils # (Auto) 4.5 x10^3uL (1.8-7.7) 3.3 x10^3uL (1.8-7.7) Lymphocytes # (Auto) 0.1 x10^3/uL (1.0-4.8) 0.4 x10^3/uL (1.0-4.8) Monocytes # (Auto) 0.5 x10^3/uL (0.0-1.1) 0.9 x10^3/uL (0.0-1.1) Eosinophils # (Auto) 0.0 x10^3/uL (0.0-0.7) 0.0 x10^3/uL (0.0-0.7) Basophils # (Auto) 0.0 x10^3/uL (0.0-0.2) 0.0 x10^3/uL (0.0-0.2) Prothrombin Time 15.0 SEC (11.7-14.0) Prothromb Time International Ratio 1.2 (0.8-1.1) Sodium Level 141 mmol/L (136-145) 143 mmol/L (136-145) Potassium Level 4.9 mmol/L (3.5-5.1) 4.3 mmol/L (3.5-5.1) Chloride Level 105 mmol/L (98-107) 110 mmol/L (98-107) Carbon Dioxide Level 23 mmol/L (21-32) 21 mmol/L (21-32) Anion Gap 13 (6-14) 12 (6-14) Blood Urea Nitrogen 55 mg/dL (8-26) 50 mg/dL (8-26) Creatinine 1.8 mg/dL (0.7-1.3) 1.7 mg/dL (0.7-1.3) Estimated GFR (Cockcroft-Gault) 35.7 38.1 BUN/Creatinine Ratio 31 (6-20) Glucose Level 215 mg/dL (70-99) 95 mg/dL (70-99) Calcium Level 8.2 mg/dL (8.5-10.1) 8.0 mg/dL (8.5-10.1) Magnesium Level 2.0 mg/dL (1.8-2.4) Total Bilirubin 0.7 mg/dL (0.2-1.0) Aspartate Amino Transf (AST/SGOT) 12 U/L (15-37) Alanine Aminotransferase (ALT/SGPT) 11 U/L (16-63) Alkaline Phosphatase 62 U/L (46-116) Total Protein 6.2 g/dL (6.4-8.2) Albumin 3.0 g/dL (3.4-5.0) Albumin/Globulin Ratio 0.9 (1.0-1.7) Glucose (Fingerstick) 195 mg/dL (70-99) Segmented Neutrophils % 47 % (35-66) Band Neutrophils % 25 % (0-9) Lymphocytes % 8 % (24-48) Atypical Lymphocytes % (Manual) 1 % (0-0) Monocytes % 19 % (0-10) Platelet Estimate Adequate (ADEQUATE) Anisocytosis Slight Ovalocytes Few [place] Cells Few O2 Saturation 98 % (92-99) Arterial Blood pH 7.48 (7.35-7.45) Arterial Blood pCO2 at Patient Temp 27 mmHg (35-46) Arterial Blood pO2 at Patient Temp 156 mmHg (65-108) Arterial Blood HCO3 20 mmol/L (21-28) Arterial Blood Base Excess -3 mmol/L (-3-3) FiO2 40 Test 01/09/18 11:30 01/09/18 12:17 O2 Saturation 98 % (92-99) Arterial Blood pH 7.36 (7.35-7.45) Arterial Blood pCO2 at Patient Temp 34 mmHg (35-46) Arterial Blood pO2 at Patient Temp 122 mmHg (65-108) Arterial Blood HCO3 19 mmol/L (21-28) Arterial Blood Base Excess -6 mmol/L (-3-3) FiO2 40 Glucose (Fingerstick) 115 mg/dL (70-99) Laboratory Tests Test 01/08/18 13:30 01/08/18 14:00 01/08/18 14:08 01/09/18 06:15 Nasal Screen MRSA (PCR) Negative (Negative) White Blood Count 5.1 x10^3/uL (4.0-11.0) 4.6 x10^3/uL (4.0-11.0) Red Blood Count 3.56 x10^6/uL (4.30-5.70) 3.27 x10^6/uL (4.30-5.70) Hemoglobin 11.1 g/dL (13.0-17.5) 10.1 g/dL (13.0-17.5) Hematocrit 32.7 % (39.0-53.0) 29.8 % (39.0-53.0) Mean Corpuscular Volume 92 fL (79-100) 91 fL (79-100) Mean Corpuscular Hemoglobin 31 pg (25-35) 31 pg (25-35) Mean Corpuscular Hemoglobin Concent 34 g/dL (31-37) 34 g/dL (31-37) Red Cell Distribution Width 15.0 % (11.5-14.5) 14.7 % (11.5-14.5) Platelet Count 178 x10^3/uL (140-400) 150 x10^3/uL (140-400) Neutrophils (%) (Auto) 87 % (31-73) 72 % (31-73) Lymphocytes (%) (Auto) 2 % (24-48) 9 % (24-48) Monocytes (%) (Auto) 10 % (0-9) 19 % (0-9) Eosinophils (%) (Auto) 0 % (0-3) 0 % (0-3) Basophils (%) (Auto) 0 % (0-3) 0 % (0-3) Neutrophils # (Auto) 4.5 x10^3uL (1.8-7.7) 3.3 x10^3uL (1.8-7.7) Lymphocytes # (Auto) 0.1 x10^3/uL (1.0-4.8) 0.4 x10^3/uL (1.0-4.8) Monocytes # (Auto) 0.5 x10^3/uL (0.0-1.1) 0.9 x10^3/uL (0.0-1.1) Eosinophils # (Auto) 0.0 x10^3/uL (0.0-0.7) 0.0 x10^3/uL (0.0-0.7) Basophils # (Auto) 0.0 x10^3/uL (0.0-0.2) 0.0 x10^3/uL (0.0-0.2) Prothrombin Time 15.0 SEC (11.7-14.0) Prothromb Time International Ratio 1.2 (0.8-1.1) Sodium Level 141 mmol/L (136-145) 143 mmol/L (136-145) Potassium Level 4.9 mmol/L (3.5-5.1) 4.3 mmol/L (3.5-5.1) Chloride Level 105 mmol/L (98-107) 110 mmol/L (98-107) Carbon Dioxide Level 23 mmol/L (21-32) 21 mmol/L (21-32) Anion Gap 13 (6-14) 12 (6-14) Blood Urea Nitrogen 55 mg/dL (8-26) 50 mg/dL (8-26) Creatinine 1.8 mg/dL (0.7-1.3) 1.7 mg/dL (0.7-1.3) Estimated GFR (Cockcroft-Gault) 35.7 38.1 BUN/Creatinine Ratio 31 (6-20) Glucose Level 215 mg/dL (70-99) 95 mg/dL (70-99) Calcium Level 8.2 mg/dL (8.5-10.1) 8.0 mg/dL (8.5-10.1) Magnesium Level 2.0 mg/dL (1.8-2.4) Total Bilirubin 0.7 mg/dL (0.2-1.0) Aspartate Amino Transf (AST/SGOT) 12 U/L (15-37) Alanine Aminotransferase (ALT/SGPT) 11 U/L (16-63) Alkaline Phosphatase 62 U/L (46-116) Total Protein 6.2 g/dL (6.4-8.2) Albumin 3.0 g/dL (3.4-5.0) Albumin/Globulin Ratio 0.9 (1.0-1.7) Glucose (Fingerstick) 195 mg/dL (70-99) Segmented Neutrophils % 47 % (35-66) Band Neutrophils % 25 % (0-9) Lymphocytes % 8 % (24-48) Atypical Lymphocytes % (Manual) 1 % (0-0) Monocytes % 19 % (0-10) Platelet Estimate Adequate (ADEQUATE) Anisocytosis Slight Ovalocytes Few [place] Cells Few Test 01/09/18 08:30 01/09/18 11:30 01/09/18 12:17 O2 Saturation 98 % (92-99) 98 % (92-99) Arterial Blood pH 7.48 (7.35-7.45) 7.36 (7.35-7.45) Arterial Blood pCO2 at Patient Temp 27 mmHg (35-46) 34 mmHg (35-46) Arterial Blood pO2 at Patient Temp 156 mmHg (65-108) 122 mmHg (65-108) Arterial Blood HCO3 20 mmol/L (21-28) 19 mmol/L (21-28) Arterial Blood Base Excess -3 mmol/L (-3-3) -6 mmol/L (-3-3) FiO2 40 40 Glucose (Fingerstick) 115 mg/dL (70-99) Problem List s/p RIH cont supportive care vent per pulCATHY Murphy MD Jan 09, 2018 12:51
[2018-01-09] MEDS ORDERED: FUROSEMIDE 40 MG/4 ML VIAL. IVP ONE (13:15)
--- NOTE | 2018-01-09 15:14 | PDOC ---
PROGRESS NOTES Chief Complaint Chief Complaint acute hypoxic resp failure with surgery Postop right inguinal hernia repair with mesh. History of Present Illness History of Present Illness The patient has been admitted to the ICU. was on vent this AM, weaned quickly, extubated, doing well on second visit in afternoon transfer out of ICU soon Gentle IV fluids, Vitals Vitals Vital Signs Date Time Temp Pulse Resp B/P (MAP) Pulse Ox O2 Delivery O2 Flow Rate FiO2 01/09/18 14:00 92 27 138/63 (88) 100 Nasal Cannula 3.0 01/09/18 12:00 97.9 97.9 Physical Exam General: Alert, Cooperative, No acute distress Heart: Regular rate, Other (1 to 2/6 systolic murmur and 2/6 diastolic murmur) Abdomen: Soft, No tenderness Extremities: No edema Skin: No rashes, No breakdown Labs LABS Laboratory Tests Test 01/09/18 06:15 01/09/18 08:30 01/09/18 11:30 01/09/18 12:17 White Blood Count 4.6 x10^3/uL (4.0-11.0) Red Blood Count 3.27 x10^6/uL (4.30-5.70) Hemoglobin 10.1 g/dL (13.0-17.5) Hematocrit 29.8 % (39.0-53.0) Mean Corpuscular Volume 91 fL (79-100) Mean Corpuscular Hemoglobin 31 pg (25-35) Mean Corpuscular Hemoglobin Concent 34 g/dL (31-37) Red Cell Distribution Width 14.7 % (11.5-14.5) Platelet Count 150 x10^3/uL (140-400) Neutrophils (%) (Auto) 72 % (31-73) Lymphocytes (%) (Auto) 9 % (24-48) Monocytes (%) (Auto) 19 % (0-9) Eosinophils (%) (Auto) 0 % (0-3) Basophils (%) (Auto) 0 % (0-3) Neutrophils # (Auto) 3.3 x10^3uL (1.8-7.7) Lymphocytes # (Auto) 0.4 x10^3/uL (1.0-4.8) Monocytes # (Auto) 0.9 x10^3/uL (0.0-1.1) Eosinophils # (Auto) 0.0 x10^3/uL (0.0-0.7) Basophils # (Auto) 0.0 x10^3/uL (0.0-0.2) Segmented Neutrophils % 47 % (35-66) Band Neutrophils % 25 % (0-9) Lymphocytes % 8 % (24-48) Atypical Lymphocytes % (Manual) 1 % (0-0) Monocytes % 19 % (0-10) Platelet Estimate Adequate (ADEQUATE) Anisocytosis Slight Ovalocytes Few Adriana Cells Few Sodium Level 143 mmol/L (136-145) Potassium Level 4.3 mmol/L (3.5-5.1) Chloride Level 110 mmol/L (98-107) Carbon Dioxide Level 21 mmol/L (21-32) Anion Gap 12 (6-14) Blood Urea Nitrogen 50 mg/dL (8-26) Creatinine 1.7 mg/dL (0.7-1.3) Estimated GFR (Cockcroft-Gault) 38.1 Glucose Level 95 mg/dL (70-99) Calcium Level 8.0 mg/dL (8.5-10.1) O2 Saturation 98 % (92-99) 98 % (92-99) Arterial Blood pH 7.48 (7.35-7.45) 7.36 (7.35-7.45) Arterial Blood pCO2 at Patient Temp 27 mmHg (35-46) 34 mmHg (35-46) Arterial Blood pO2 at Patient Temp 156 mmHg (65-108) 122 mmHg (65-108) Arterial Blood HCO3 20 mmol/L (21-28) 19 mmol/L (21-28) Arterial Blood Base Excess -3 mmol/L (-3-3) -6 mmol/L (-3-3) FiO2 40 40 Glucose (Fingerstick) 115 mg/dL (70-99) Comment Review of Relevant I have reviewed the following items jacob (where applicable) has been applied. Labs Laboratory Tests Test 01/07/18 17:53 01/08/18 03:45 01/08/18 12:50 01/08/18 13:30 Glucose (Fingerstick) 178 mg/dL (70-99) White Blood Count 4.9 x10^3/uL (4.0-11.0) Red Blood Count 4.21 x10^6/uL (4.30-5.70) Hemoglobin 13.1 g/dL (13.0-17.5) Hematocrit 38.5 % (39.0-53.0) Mean Corpuscular Volume 91 fL (79-100) Mean Corpuscular Hemoglobin 31 pg (25-35) Mean Corpuscular Hemoglobin Concent 34 g/dL (31-37) Red Cell Distribution Width 14.9 % (11.5-14.5) Platelet Count 215 x10^3/uL (140-400) Neutrophils (%) (Auto) 89 % (31-73) Lymphocytes (%) (Auto) 5 % (24-48) Monocytes (%) (Auto) 5 % (0-9) Eosinophils (%) (Auto) 1 % (0-3) Basophils (%) (Auto) 1 % (0-3) Neutrophils # (Auto) 4.4 x10^3uL (1.8-7.7) Lymphocytes # (Auto) 0.2 x10^3/uL (1.0-4.8) Monocytes # (Auto) 0.2 x10^3/uL (0.0-1.1) Eosinophils # (Auto) 0.0 x10^3/uL (0.0-0.7) Basophils # (Auto) 0.0 x10^3/uL (0.0-0.2) Segmented Neutrophils % 81 % (35-66) Band Neutrophils % 16 % (0-9) Lymphocytes % 2 % (24-48) Monocytes % 1 % (0-10) Platelet Estimate Adequate (ADEQUATE) Prothrombin Time 14.2 SEC (11.7-14.0) Prothromb Time International Ratio 1.2 (0.8-1.1) Sodium Level 140 mmol/L (136-145) Potassium Level 5.0 mmol/L (3.5-5.1) Chloride Level 104 mmol/L (98-107) Carbon Dioxide Level 29 mmol/L (21-32) Anion Gap 7 (6-14) Blood Urea Nitrogen 52 mg/dL (8-26) Creatinine 2.0 mg/dL (0.7-1.3) Estimated GFR (Cockcroft-Gault) 31.6 Glucose Level 187 mg/dL (70-99) Calcium Level 9.1 mg/dL (8.5-10.1) O2 Saturation 99 % (92-99) Arterial Blood pH 7.37 (7.35-7.45) Arterial Blood pCO2 at Patient Temp 35 mmHg (35-46) Arterial Blood pO2 at Patient Temp 494 mmHg (65-108) Arterial Blood HCO3 20 mmol/L (21-28) Arterial Blood Base Excess -5 mmol/L (-3-3) FiO2 100 Nasal Screen MRSA (PCR) Negative (Negative) Test 01/08/18 14:00 01/08/18 14:08 01/09/18 06:15 01/09/18 08:30 White Blood Count 5.1 x10^3/uL (4.0-11.0) 4.6 x10^3/uL (4.0-11.0) Red Blood Count 3.56 x10^6/uL (4.30-5.70) 3.27 x10^6/uL (4.30-5.70) Hemoglobin 11.1 g/dL (13.0-17.5) 10.1 g/dL (13.0-17.5) Hematocrit 32.7 % (39.0-53.0) 29.8 % (39.0-53.0) Mean Corpuscular Volume 92 fL (79-100) 91 fL (79-100) Mean Corpuscular Hemoglobin 31 pg (25-35) 31 pg (25-35) Mean Corpuscular Hemoglobin Concent 34 g/dL (31-37) 34 g/dL (31-37) Red Cell Distribution Width 15.0 % (11.5-14.5) 14.7 % (11.5-14.5) Platelet Count 178 x10^3/uL (140-400) 150 x10^3/uL (140-400) Neutrophils (%) (Auto) 87 % (31-73) 72 % (31-73) Lymphocytes (%) (Auto) 2 % (24-48) 9 % (24-48) Monocytes (%) (Auto) 10 % (0-9) 19 % (0-9) Eosinophils (%) (Auto) 0 % (0-3) 0 % (0-3) Basophils (%) (Auto) 0 % (0-3) 0 % (0-3) Neutrophils # (Auto) 4.5 x10^3uL (1.8-7.7) 3.3 x10^3uL (1.8-7.7) Lymphocytes # (Auto) 0.1 x10^3/uL (1.0-4.8) 0.4 x10^3/uL (1.0-4.8) Monocytes # (Auto) 0.5 x10^3/uL (0.0-1.1) 0.9 x10^3/uL (0.0-1.1) Eosinophils # (Auto) 0.0 x10^3/uL (0.0-0.7) 0.0 x10^3/uL (0.0-0.7) Basophils # (Auto) 0.0 x10^3/uL (0.0-0.2) 0.0 x10^3/uL (0.0-0.2) Prothrombin Time 15.0 SEC (11.7-14.0) Prothromb Time International Ratio 1.2 (0.8-1.1) Sodium Level 141 mmol/L (136-145) 143 mmol/L (136-145) Potassium Level 4.9 mmol/L (3.5-5.1) 4.3 mmol/L (3.5-5.1) Chloride Level 105 mmol/L (98-107) 110 mmol/L (98-107) Carbon Dioxide Level 23 mmol/L (21-32) 21 mmol/L (21-32) Anion Gap 13 (6-14) 12 (6-14) Blood Urea Nitrogen 55 mg/dL (8-26) 50 mg/dL (8-26) Creatinine 1.8 mg/dL (0.7-1.3) 1.7 mg/dL (0.7-1.3) Estimated GFR (Cockcroft-Gault) 35.7 38.1 BUN/Creatinine Ratio 31 (6-20) Glucose Level 215 mg/dL (70-99) 95 mg/dL (70-99) Calcium Level 8.2 mg/dL (8.5-10.1) 8.0 mg/dL (8.5-10.1) Magnesium Level 2.0 mg/dL (1.8-2.4) Total Bilirubin 0.7 mg/dL (0.2-1.0) Aspartate Amino Transf (AST/SGOT) 12 U/L (15-37) Alanine Aminotransferase (ALT/SGPT) 11 U/L (16-63) Alkaline Phosphatase 62 U/L (46-116) Total Protein 6.2 g/dL (6.4-8.2) Albumin 3.0 g/dL (3.4-5.0) Albumin/Globulin Ratio 0.9 (1.0-1.7) Glucose (Fingerstick) 195 mg/dL (70-99) Segmented Neutrophils % 47 % (35-66) Band Neutrophils % 25 % (0-9) Lymphocytes % 8 % (24-48) Atypical Lymphocytes % (Manual) 1 % (0-0) Monocytes % 19 % (0-10) Platelet Estimate Adequate (ADEQUATE) Anisocytosis Slight Ovalocytes Few Mccoy Cells Few O2 Saturation 98 % (92-99) Arterial Blood pH 7.48 (7.35-7.45) Arterial Blood pCO2 at Patient Temp 27 mmHg (35-46) Arterial Blood pO2 at Patient Temp 156 mmHg (65-108) Arterial Blood HCO3 20 mmol/L (21-28) Arterial Blood Base Excess -3 mmol/L (-3-3) FiO2 40 Test 01/09/18 11:30 01/09/18 12:17 O2 Saturation 98 % (92-99) Arterial Blood pH 7.36 (7.35-7.45) Arterial Blood pCO2 at Patient Temp 34 mmHg (35-46) Arterial Blood pO2 at Patient Temp 122 mmHg (65-108) Arterial Blood HCO3 19 mmol/L (21-28) Arterial Blood Base Excess -6 mmol/L (-3-3) FiO2 40 Glucose (Fingerstick) 115 mg/dL (70-99) Laboratory Tests Test 01/09/18 06:15 01/09/18 08:30 01/09/18 11:30 01/09/18 12:17 White Blood Count 4.6 x10^3/uL (4.0-11.0) Red Blood Count 3.27 x10^6/uL (4.30-5.70) Hemoglobin 10.1 g/dL (13.0-17.5) Hematocrit 29.8 % (39.0-53.0) Mean Corpuscular Volume 91 fL (79-100) Mean Corpuscular Hemoglobin 31 pg (25-35) Mean Corpuscular Hemoglobin Concent 34 g/dL (31-37) Red Cell Distribution Width 14.7 % (11.5-14.5) Platelet Count 150 x10^3/uL (140-400) Neutrophils (%) (Auto) 72 % (31-73) Lymphocytes (%) (Auto) 9 % (24-48) Monocytes (%) (Auto) 19 % (0-9) Eosinophils (%) (Auto) 0 % (0-3) Basophils (%) (Auto) 0 % (0-3) Neutrophils # (Auto) 3.3 x10^3uL (1.8-7.7) Lymphocytes # (Auto) 0.4 x10^3/uL (1.0-4.8) Monocytes # (Auto) 0.9 x10^3/uL (0.0-1.1) Eosinophils # (Auto) 0.0 x10^3/uL (0.0-0.7) Basophils # (Auto) 0.0 x10^3/uL (0.0-0.2) Segmented Neutrophils % 47 % (35-66) Band Neutrophils % 25 % (0-9) Lymphocytes % 8 % (24-48) Atypical Lymphocytes % (Manual) 1 % (0-0) Monocytes % 19 % (0-10) Platelet Estimate Adequate (ADEQUATE) Anisocytosis Slight Ovalocytes Few Mccoy Cells Few Sodium Level 143 mmol/L (136-145) Potassium Level 4.3 mmol/L (3.5-5.1) Chloride Level 110 mmol/L (98-107) Carbon Dioxide Level 21 mmol/L (21-32) Anion Gap 12 (6-14) Blood Urea Nitrogen 50 mg/dL (8-26) Creatinine 1.7 mg/dL (0.7-1.3) Estimated GFR (Cockcroft-Gault) 38.1 Glucose Level 95 mg/dL (70-99) Calcium Level 8.0 mg/dL (8.5-10.1) O2 Saturation 98 % (92-99) 98 % (92-99) Arterial Blood pH 7.48 (7.35-7.45) 7.36 (7.35-7.45) Arterial Blood pCO2 at Patient Temp 27 mmHg (35-46) 34 mmHg (35-46) Arterial Blood pO2 at Patient Temp 156 mmHg (65-108) 122 mmHg (65-108) Arterial Blood HCO3 20 mmol/L (21-28) 19 mmol/L (21-28) Arterial Blood Base Excess -3 mmol/L (-3-3) -6 mmol/L (-3-3) FiO2 40 40 Glucose (Fingerstick) 115 mg/dL (70-99) Medications Current Medications Sodium Chloride 1,000 ml @ 100 mls/hr Q10H IV Last administered on 01/08/18at 23 :51; Start 01/07/18 at 18:30 Oxycodone/ Acetaminophen (Percocet 5/325) 1 tab PRN Q4HRS PRN PO MODERATE PAIN ; Start 01/07/18 at 18:30 Oxycodone/ Acetaminophen (Percocet 5/325) 2 tab PRN Q6HRS PRN PO SEVERE PAIN Last administered on 01/07/18at 23:00; Start 01/07/18 at 18:30 Clonidine HCl (Catapres) 0.1 mg PRN Q1HR PRN PO HYPERTENSION, SEE COMMENTS; Start 01/07/18 at 18:30 Fentanyl Citrate (Fentanyl 2ml Vial) 50 mcg PRN Q2HR PRN IV SEVERE PAIN Last administered on 01/08/18at 19:42; Start 01/07/18 at 18:30 Ondansetron HCl (Zofran) 4 mg PRN Q6HRS PRN IV NAUSEA/VOMITING Last administered on 01/08/18at 10:04; Start 01/07/18 at 18:30; Stop 01/08/18 at 15:25; Status DC Acetaminophen (Tylenol) 650 mg PRN Q6HRS PRN PO MILD PAIN / TEMP; Start at 18:30 Cefazolin Sodium/ Dextrose 50 ml @ 100 mls/hr 1X PREOP IV Last administered on 01/08/18at 12:24; Start 01/08/18 at 08:00; Stop 01/08/18 at 18:00; Status DC Morphine Sulfate (Morphine Sulfate) 2 mg PRN Q2HR PRN IV PAIN MODERATE TO SEVERE Last administered on 01/08/18at 14:53; Start 01/07/18 at 20:00; Stop at 15:24; Status DC Sodium Polystyrene Sulfonate (Kayexalate) 15 gm 1X ONCE PO Last administered on 01/07/18at 20:48; Start 01/07/18 at 20:15; Stop 01/07/18 at 20:16; Status DC Carvedilol (Coreg) 12.5 mg BIDWMEALS PO Last administered on 01/08/18at 08:21; Start 01/07/18 at 21:00 Furosemide (Lasix) 40 mg DAILY PO ; Start 01/08/18 at 09:00 Nitroglycerin (Nitrostat) 0.4 mg PRN Q5MIN PRN SL CHEST PAIN; Start 01/07/18 at 20:30 Isosorbide Mononitrate (Imdur) 240 mg DAILY PO ; Start 01/08/18 at 09:00 Atorvastatin Calcium (Lipitor) 10 mg QHS PO Last administered on 01/07/18at 20:53 ; Start 01/07/18 at 21:00 Insulin Human Lispro (HumaLOG) 0-9 UNITS TIDWMEALS SQ ; Start 01/08/18 at 08:00 Dextrose (Dextrose 50%-Water Syringe) 12.5 gm PRN Q15MIN PRN IV SEE COMMENTS; Start 01/07/18 at 20:30 Bupivacaine HCl/ Epinephrine Bitart (Marcaine-Epi 0.5%-[id number]) 50 ml STK-MED ONCE .ROUTE Last administered on 01/08/18at 11:56; Start 01/08/18 at 06:22; Stop 01/08/18 at 07:22; Status DC Fentanyl Citrate (Fentanyl 2ml Vial) 100 mcg STK-MED ONCE .ROUTE ; Start at 07:34; Stop 01/08/18 at 07:35; Status DC Rocuronium [place] (Zemuron) 50 mg STK-MED ONCE .ROUTE ; Start 01/08/18 at 07:34 ; Stop 01/08/18 at 07:35; Status DC Propofol 20 ml @ As Directed STK-MED ONCE IV ; Start 01/08/18 at 07:37; Stop 01/08 at 07:38; Status DC Dexamethasone Sodium Phosphate (Decadron) 20 mg STK-MED ONCE .ROUTE ; Start 01/08 at 07:37; Stop 01/08/18 at 07:38; Status DC Ondansetron HCl (Zofran) 4 mg STK-MED ONCE .ROUTE ; Start 01/08/18 at 07:37; Stop 01/08/18 at 07:38; Status DC Ondansetron HCl (Zofran) 4 mg PRN Q6HRS PRN IV NAUSEA/VOMITING; Start 01/08/18 at 08:15; Stop 01/08/18 at 15:21; Status DC Fentanyl Citrate (Fentanyl 2ml Vial) 25 mcg PRN Q5MIN PRN IV MILD PAIN; Start 01/08/18 at 08:15; Stop 01/08/18 at 15:21; Status DC Fentanyl Citrate (Fentanyl 2ml Vial) 50 mcg PRN Q5MIN PRN IV MODERATE TO SEVERE PAIN; Start 01/08/18 at 08:15; Stop 01/08/18 at 15:21; Status DC Morphine Sulfate (Morphine Sulfate) 1 mg PRN Q10MIN PRN IV SEVERE PAIN; Start 01/08/18 at 08:15; Stop 01/08/18 at 15:21; Status DC Ringer's Solution 1,000 ml @ 30 mls/hr Q24H IV ; Start 01/08/18 at 08:01; Stop 01/08/18 at 15:22; Status DC Lidocaine HCl (Xylocaine-Mpf 1% 2ml Vial) 2 ml 1X PRN PRN ID IV START; Start at 08:15; Stop 01/08/18 at 15:22; Status DC Hydromorphone HCl (Dilaudid) 0.5 mg PRN Q10MIN PRN IV SEV PAIN, Second choice; Start 01/08/18 at 08:15; Stop 01/08/18 at 15:22; Status DC Prochlorperazine Edisylate (Compazine) 5 mg PACU PRN PRN IV NAUSEA, MRX1; Start 01/08/18 at 08:15; Stop 01/08/18 at 15:22; Status DC Phenylephrine HCl (PHENYLEPHRINE in 0.9% NACL PF) 1 mg STK-MED ONCE IV ; Start 01/08/18 at 11:55; Stop 01/08/18 at 11:56; Status DC Glycopyrrolate (Robinul) 1 mg STK-MED ONCE .ROUTE ; Start 01/08/18 at 12:20; Stop 01/08/18 at 12:21; Status DC Neostigmine Methylsulfate (Neostigmine Methylsulfate) 5 mg STK-MED ONCE .ROUTE ; Start 01/08/18 at 12:20; Stop 01/08/18 at 12:21; Status DC Sevoflurane (Ultane) 60 ml STK-MED ONCE IH ; Start 01/08/18 at 12:30; Stop at 12:31; Status DC Propofol 100 ml @ As Directed STK-MED ONCE IV ; Start 01/08/18 at 12:53; Stop at 12:54; Status DC Albumin Human 500 ml @ 125 mls/hr 1X ONCE IV Last administered on 01/08/18at 13 :39; Start 01/08/18 at 13:15; Stop 01/08/18 at 17:14; Status DC Sodium Chloride 500 ml @ 500 mls/hr 1X ONCE IV ; Start 01/08/18 at 13:15; Stop 01/08/18 at 14:14; Status DC Enoxaparin Sodium (Lovenox 40mg Syringe) 40 mg Q12HR SQ Last administered on 01/09/18at 08:30; Start 01/08/18 at 21:00; Stop 01/09/18 at 10:10; Status DC Sodium Chloride (Normal Saline Flush) 3 ml QSHIFT PRN IV AFTER MEDS AND BLOOD DRAWS; Start 01/08/18 at 13:30 Ringer's Solution 1,000 ml @ 100 mls/hr Q10H IV ; Start 01/08/18 at 13:19; Stop 01/08/18 at 18:02; Status DC Morphine Sulfate (Morphine Sulfate) 1 mg PRN Q1HR PRN IV PAIN mild; Start at 13:30 Ondansetron HCl (Zofran) 4 mg PRN Q6HRS PRN IV NAUESA, 1ST CHOICE; Start at 13:30 Propofol 100 ml @ 1.238 mls/ hr CONT PRN IV SEE I/O RECORD Last administered on 01/09/18at 06:22; Start 01/08/18 at 12:45 Norepinephrine Bitartrate 250 ml @ 1.875 mls/ hr CONT PRN IV SEE I/O RECORD; Start 01/08/18 at 19:15 Enoxaparin Sodium (Lovenox 40mg Syringe) 40 mg DAILY SQ ; Start 01/10/18 at 09:00 Furosemide (Lasix) 40 mg 1X ONCE IVP Last administered on 01/09/18at 13:15; Start 01/09/18 at 13:15; Stop 01/09/18 at 13:16; Status DC Active Scripts Active Reported Isosorbide Mononitrate Er (Isosorbide Mononitrate) 120 Mg Tab.er.24h 2 Tab PO DAILY NITROGLYCERIN SubLingual (Nitroglycerin) 0.4 Mg Tab.subl 0.4 Mg SL PRN Q5MIN PRN Lisinopril 5 Mg Tablet 0.5 Tab PO DAILY Lasix (Furosemide) 40 Mg Tablet 1 Tab PO DAILY Carvedilol 12.5 Mg Tablet 1 Tab PO BID Clopidogrel (Clopidogrel Bisulfate) 75 Mg Tablet 1 Tab PO DAILY Pravastatin Sodium 40 Mg Tablet 1 Tab PO QHS Metformin Hcl 1,000 Mg Tablet 1,000 Mg PO BIDWMEALS Glimepiride 2 Mg Tablet 1 Tab PO BID Aspirin Ec (Aspirin) 81 Mg Tablet.dr 1 Tab PO DAILY NITROGLYCERIN SubLingual (Nitroglycerin) 0.4 Mg Tab.subl 0.4 Mg SL PRN Q5MIN PRN Isosorbide Mononitrate Er (Isosorbide Mononitrate) 120 Mg Tab.er.24h 120 Mg PO DAILY Carvedilol 25 Mg Tablet 1 Tab PO BID Plavix (Clopidogrel Bisulfate) 75 Mg Tablet 1 Tab PO DAILY Pravastatin Sodium 40 Mg Tablet 1 Tab PO QHS Metformin Hcl 1,000 Mg Tablet 1 Tab PO BID Hydrochlorothiazide Tablet (Hydrochlorothiazide) 12.5 Mg Tablet 25 Mg PO DAILY Glimepiride 2 Mg Tablet 2 Mg PO BID Aspirin 325 Mg Tablet 1 Tab PO DAILY Vitals/I & O Vital Sign - Last 24 Hours 01/08/18 01/08/18 01/08/18 01/08/18 15:25 15:30 16:00 16:00 Temp 98.5 98.5 Pulse 64 64 Resp 20 20 B/P (MAP) 116/56 (76) 118/43 (68) Pulse Ox 100 100 100 O2 Delivery Ventilator Ventilator Ventilator Mechanical Ventilator 01/08/18 01/08/18 01/08/18 01/08/18 16:52 17:06 18:01 19:00 Pulse 64 62 64 Resp 20 20 20 B/P (MAP) 104/46 (65) 94/34 (54) 71/35 (47) Pulse Ox 100 100 100 100 O2 Delivery Ventilator Ventilator Ventilator Ventilator 01/08/18 01/08/18 01/08/18 01/08/18 19:42 19:42 20:00 20:00 Resp 20 B/P (MAP) Pulse Ox 100 100 O2 Delivery Ventilator Ventilator Mechanical Ventilator 01/08/18 01/08/18 01/08/18 01/08/18 20:00 20:38 21:00 22:00 Temp 99.0 99.0 Pulse 63 66 62 Resp 20 20 20 20 B/P (MAP) 91/41 (58) 91/39 (56) 91/40 (57) Pulse Ox 100 100 100 100 O2 Delivery Ventilator Ventilator Ventilator Ventilator 01/08/18 01/08/18 01/09/18 01/09/18 23:00 23:38 00:00 00:00 Temp 100.4 100.4 Pulse 62 65 Resp 20 20 B/P (MAP) 93/41 (58) 97/39 (58) Pulse Ox 100 100 100 O2 Delivery Ventilator Ventilator Ventilator 01/09/18 01/09/18 01/09/18 01/09/18 01:00 01:01 02:00 03:00 Pulse 67 63 63 Resp 20 20 20 B/P (MAP) 96/40 (58) 90/41 (57) 90/40 (57) Pulse Ox 100 100 100 100 O2 Delivery Ventilator Ventilator Ventilator Ventilator 01/09/18 01/09/18 01/09/18 01/09/18 03:42 04:00 04:00 05:00 Temp 98.9 98.9 Pulse 66 69 Resp 20 20 B/P (MAP) 94/42 (59) 90/41 (57) Pulse Ox 100 100 100 O2 Delivery Ventilator Ventilator Ventilator 01/09/18 01/09/18 01/09/18 01/09/18 06:00 07:00 08:00 08:00 Pulse 70 71 72 Resp 20 20 B/P (MAP) 105/45 (65) 99/47 (64) 97/44 Pulse Ox 100 100 O2 Delivery Ventilator Ventilator Mechanical Ventilator 01/09/18 01/09/18 01/09/18 01/09/18 08:00 08:00 08:11 08:30 Temp 99.7 99.7 Pulse 72 72 Resp 20 B/P (MAP) 97/44 (61) 97/44 Pulse Ox 100 100 O2 Delivery Ventilator Ventilator 01/09/18 01/09/18 01/09/18 01/09/18 09:00 10:00 10:40 11:00 Pulse 68 68 82 Resp 20 20 19 B/P (MAP) 99/42 (61) 122/53 (76) 130/54 (79) Pulse Ox 100 100 O2 Delivery Ventilator Ventilator Ventilator Ventilator 01/09/18 01/09/18 01/09/18 01/09/18 12:00 12:00 12:00 12:02 Temp 97.9 97.9 Pulse 90 90 Resp 25 B/P (MAP) 131/57 (81) 131/57 (81) Pulse Ox 100 O2 Delivery Nasal Cannula Nasal Cannula Nasal Cannula O2 Flow Rate 3.0 3.0 3.0 01/09/18 01/09/18 13:00 14:00 Pulse 90 92 Resp 29 27 B/P (MAP) 126/57 (80) 138/63 (88) Pulse Ox 100 100 O2 Delivery Nasal Cannula Nasal Cannula O2 Flow Rate 3.0 3.0 Intake and Output 01/08/18 01/08/18 01/09/18 15:00 23:00 07:00 Intake Total 1050 ml 500 ml 1817.5 ml Output Total 4190 ml 380 ml 291 ml Balance -3140 ml 120 ml 1526.5 ml JOSH MARTELL MD Jan 09, 2018 15:14
[2018-01-09] MEDS: ALBUTEROL SULFATE 2.5 MG/3 ML NEBU. NEB PRN (19:26)
--- NOTE | 2018-01-09 19:33 | PDOC ---
PULMONARY PROGRESS NOTES Vitals Vital Signs Date Time Temp Pulse Resp B/P (MAP) Pulse Ox O2 Delivery O2 Flow Rate FiO2 01/09/18 18:00 80 27 117/51 (73) 100 Nasal Cannula 2.0 01/09/18 16:00 98.1 98.1 Labs Laboratory Tests Test 01/08/18 03:45 01/08/18 12:50 01/08/18 13:30 01/08/18 14:00 White Blood Count 4.9 x10^3/uL (4.0-11.0) 5.1 x10^3/uL (4.0-11.0) Red Blood Count 4.21 x10^6/uL (4.30-5.70) 3.56 x10^6/uL (4.30-5.70) Hemoglobin 13.1 g/dL (13.0-17.5) 11.1 g/dL (13.0-17.5) Hematocrit 38.5 % (39.0-53.0) 32.7 % (39.0-53.0) Mean Corpuscular Volume 91 fL (79-100) 92 fL (79-100) Mean Corpuscular Hemoglobin 31 pg (25-35) 31 pg (25-35) Mean Corpuscular Hemoglobin Concent 34 g/dL (31-37) 34 g/dL (31-37) Red Cell Distribution Width 14.9 % (11.5-14.5) 15.0 % (11.5-14.5) Platelet Count 215 x10^3/uL (140-400) 178 x10^3/uL (140-400) Neutrophils (%) (Auto) 89 % (31-73) 87 % (31-73) Lymphocytes (%) (Auto) 5 % (24-48) 2 % (24-48) Monocytes (%) (Auto) 5 % (0-9) 10 % (0-9) Eosinophils (%) (Auto) 1 % (0-3) 0 % (0-3) Basophils (%) (Auto) 1 % (0-3) 0 % (0-3) Neutrophils # (Auto) 4.4 x10^3uL (1.8-7.7) 4.5 x10^3uL (1.8-7.7) Lymphocytes # (Auto) 0.2 x10^3/uL (1.0-4.8) 0.1 x10^3/uL (1.0-4.8) Monocytes # (Auto) 0.2 x10^3/uL (0.0-1.1) 0.5 x10^3/uL (0.0-1.1) Eosinophils # (Auto) 0.0 x10^3/uL (0.0-0.7) 0.0 x10^3/uL (0.0-0.7) Basophils # (Auto) 0.0 x10^3/uL (0.0-0.2) 0.0 x10^3/uL (0.0-0.2) Segmented Neutrophils % 81 % (35-66) Band Neutrophils % 16 % (0-9) Lymphocytes % 2 % (24-48) Monocytes % 1 % (0-10) Platelet Estimate Adequate (ADEQUATE) Prothrombin Time 14.2 SEC (11.7-14.0) 15.0 SEC (11.7-14.0) Prothromb Time International Ratio 1.2 (0.8-1.1) 1.2 (0.8-1.1) Sodium Level 140 mmol/L (136-145) 141 mmol/L (136-145) Potassium Level 5.0 mmol/L (3.5-5.1) 4.9 mmol/L (3.5-5.1) Chloride Level 104 mmol/L (98-107) 105 mmol/L (98-107) Carbon Dioxide Level 29 mmol/L (21-32) 23 mmol/L (21-32) Anion Gap 7 (6-14) 13 (6-14) Blood Urea Nitrogen 52 mg/dL (8-26) 55 mg/dL (8-26) Creatinine 2.0 mg/dL (0.7-1.3) 1.8 mg/dL (0.7-1.3) Estimated GFR (Cockcroft-Gault) 31.6 35.7 Glucose Level 187 mg/dL (70-99) 215 mg/dL (70-99) Calcium Level 9.1 mg/dL (8.5-10.1) 8.2 mg/dL (8.5-10.1) O2 Saturation 99 % (92-99) Arterial Blood pH 7.37 (7.35-7.45) Arterial Blood pCO2 at Patient Temp 35 mmHg (35-46) Arterial Blood pO2 at Patient Temp 494 mmHg (65-108) Arterial Blood HCO3 20 mmol/L (21-28) Arterial Blood Base Excess -5 mmol/L (-3-3) FiO2 100 Nasal Screen MRSA (PCR) Negative (Negative) BUN/Creatinine Ratio 31 (6-20) Magnesium Level 2.0 mg/dL (1.8-2.4) Total Bilirubin 0.7 mg/dL (0.2-1.0) Aspartate Amino Transf (AST/SGOT) 12 U/L (15-37) Alanine Aminotransferase (ALT/SGPT) 11 U/L (16-63) Alkaline Phosphatase 62 U/L (46-116) Total Protein 6.2 g/dL (6.4-8.2) Albumin 3.0 g/dL (3.4-5.0) Albumin/Globulin Ratio 0.9 (1.0-1.7) Test 01/08/18 14:08 01/09/18 06:15 01/09/18 08:30 01/09/18 11:30 Glucose (Fingerstick) 195 mg/dL (70-99) White Blood Count 4.6 x10^3/uL (4.0-11.0) Red Blood Count 3.27 x10^6/uL (4.30-5.70) Hemoglobin 10.1 g/dL (13.0-17.5) Hematocrit 29.8 % (39.0-53.0) Mean Corpuscular Volume 91 fL (79-100) Mean Corpuscular Hemoglobin 31 pg (25-35) Mean Corpuscular Hemoglobin Concent 34 g/dL (31-37) Red Cell Distribution Width 14.7 % (11.5-14.5) Platelet Count 150 x10^3/uL (140-400) Neutrophils (%) (Auto) 72 % (31-73) Lymphocytes (%) (Auto) 9 % (24-48) Monocytes (%) (Auto) 19 % (0-9) Eosinophils (%) (Auto) 0 % (0-3) Basophils (%) (Auto) 0 % (0-3) Neutrophils # (Auto) 3.3 x10^3uL (1.8-7.7) Lymphocytes # (Auto) 0.4 x10^3/uL (1.0-4.8) Monocytes # (Auto) 0.9 x10^3/uL (0.0-1.1) Eosinophils # (Auto) 0.0 x10^3/uL (0.0-0.7) Basophils # (Auto) 0.0 x10^3/uL (0.0-0.2) Segmented Neutrophils % 47 % (35-66) Band Neutrophils % 25 % (0-9) Lymphocytes % 8 % (24-48) Atypical Lymphocytes % (Manual) 1 % (0-0) Monocytes % 19 % (0-10) Platelet Estimate Adequate (ADEQUATE) Anisocytosis Slight Ovalocytes Few [place] Cells Few Sodium Level 143 mmol/L (136-145) Potassium Level 4.3 mmol/L (3.5-5.1) Chloride Level 110 mmol/L (98-107) Carbon Dioxide Level 21 mmol/L (21-32) Anion Gap 12 (6-14) Blood Urea Nitrogen 50 mg/dL (8-26) Creatinine 1.7 mg/dL (0.7-1.3) Estimated GFR (Cockcroft-Gault) 38.1 Glucose Level 95 mg/dL (70-99) Calcium Level 8.0 mg/dL (8.5-10.1) O2 Saturation 98 % (92-99) 98 % (92-99) Arterial Blood pH 7.48 (7.35-7.45) 7.36 (7.35-7.45) Arterial Blood pCO2 at Patient Temp 27 mmHg (35-46) 34 mmHg (35-46) Arterial Blood pO2 at Patient Temp 156 mmHg (65-108) 122 mmHg (65-108) Arterial Blood HCO3 20 mmol/L (21-28) 19 mmol/L (21-28) Arterial Blood Base Excess -3 mmol/L (-3-3) -6 mmol/L (-3-3) FiO2 40 40 Test 01/09/18 12:17 01/09/18 17:12 Glucose (Fingerstick) 115 mg/dL (70-99) 117 mg/dL (70-99) Laboratory Tests Test 01/09/18 06:15 01/09/18 08:30 01/09/18 11:30 01/09/18 12:17 White Blood Count 4.6 x10^3/uL (4.0-11.0) Red Blood Count 3.27 x10^6/uL (4.30-5.70) Hemoglobin 10.1 g/dL (13.0-17.5) Hematocrit 29.8 % (39.0-53.0) Mean Corpuscular Volume 91 fL (79-100) Mean Corpuscular Hemoglobin 31 pg (25-35) Mean Corpuscular Hemoglobin Concent 34 g/dL (31-37) Red Cell Distribution Width 14.7 % (11.5-14.5) Platelet Count 150 x10^3/uL (140-400) Neutrophils (%) (Auto) 72 % (31-73) Lymphocytes (%) (Auto) 9 % (24-48) Monocytes (%) (Auto) 19 % (0-9) Eosinophils (%) (Auto) 0 % (0-3) Basophils (%) (Auto) 0 % (0-3) Neutrophils # (Auto) 3.3 x10^3uL (1.8-7.7) Lymphocytes # (Auto) 0.4 x10^3/uL (1.0-4.8) Monocytes # (Auto) 0.9 x10^3/uL (0.0-1.1) Eosinophils # (Auto) 0.0 x10^3/uL (0.0-0.7) Basophils # (Auto) 0.0 x10^3/uL (0.0-0.2) Segmented Neutrophils % 47 % (35-66) Band Neutrophils % 25 % (0-9) Lymphocytes % 8 % (24-48) Atypical Lymphocytes % (Manual) 1 % (0-0) Monocytes % 19 % (0-10) Platelet Estimate Adequate (ADEQUATE) Anisocytosis Slight Ovalocytes Few [place] Cells Few Sodium Level 143 mmol/L (136-145) Potassium Level 4.3 mmol/L (3.5-5.1) Chloride Level 110 mmol/L (98-107) Carbon Dioxide Level 21 mmol/L (21-32) Anion Gap 12 (6-14) Blood Urea Nitrogen 50 mg/dL (8-26) Creatinine 1.7 mg/dL (0.7-1.3) Estimated GFR (Cockcroft-Gault) 38.1 Glucose Level 95 mg/dL (70-99) Calcium Level 8.0 mg/dL (8.5-10.1) O2 Saturation 98 % (92-99) 98 % (92-99) Arterial Blood pH 7.48 (7.35-7.45) 7.36 (7.35-7.45) Arterial Blood pCO2 at Patient Temp 27 mmHg (35-46) 34 mmHg (35-46) Arterial Blood pO2 at Patient Temp 156 mmHg (65-108) 122 mmHg (65-108) Arterial Blood HCO3 20 mmol/L (21-28) 19 mmol/L (21-28) Arterial Blood Base Excess -3 mmol/L (-3-3) -6 mmol/L (-3-3) FiO2 40 40 Glucose (Fingerstick) 115 mg/dL (70-99) Test 01/09/18 17:12 Glucose (Fingerstick) 117 mg/dL (70-99) Medications Active Scripts Medications Dose Route/Sig Max Daily Dose Days Date Category Isosorbide Mononitrate Er (Isosorbide Mononitrate) 120 Mg Tab.er.24h 2 Tab PO DAILY 01/07/18 Reported NITROGLYCERIN SubLingual (Nitroglycerin) 0.4 Mg Tab.subl 0.4 Mg SL PRN Q5MIN PRN 01/07/18 Reported Lisinopril 5 Mg Tablet 0.5 Tab PO DAILY 01/07/18 Reported Lasix (Furosemide) 40 Mg Tablet 1 Tab PO DAILY 01/07/18 Reported Carvedilol 12.5 Mg Tablet 1 Tab PO BID 01/07/18 Reported Clopidogrel (Clopidogrel Bisulfate) 75 Mg Tablet 1 Tab PO DAILY 01/07/18 Reported Pravastatin Sodium 40 Mg Tablet 1 Tab PO QHS 01/07/18 Reported Metformin Hcl 1,000 Mg Tablet 1,000 Mg PO BIDWMEALS 01/07/18 Reported Glimepiride 2 Mg Tablet 1 Tab PO BID 01/07/18 Reported Aspirin Ec (Aspirin) 81 Mg Tablet.dr 1 Tab PO DAILY 01/07/18 Reported NITROGLYCERIN SubLingual (Nitroglycerin) 0.4 Mg Tab.subl 0.4 Mg SL PRN Q5MIN PRN 08/30/14 Reported Isosorbide Mononitrate Er (Isosorbide Mononitrate) 120 Mg Tab.er.24h 120 Mg PO DAILY 08/30/14 Reported Carvedilol 25 Mg Tablet 1 Tab PO BID 08/30/14 Reported Plavix (Clopidogrel Bisulfate) 75 Mg Tablet 1 Tab PO DAILY 08/30/14 Reported Pravastatin Sodium 40 Mg Tablet 1 Tab PO QHS 08/30/14 Reported Metformin Hcl 1,000 Mg Tablet 1 Tab PO BID 08/30/14 Reported Hydrochlorothiazide Tablet (Hydrochlorothiazide) 12.5 Mg Tablet 25 Mg PO DAILY 08/30/14 Reported Glimepiride 2 Mg Tablet 2 Mg PO BID 08/30/14 Reported Aspirin 325 Mg Tablet 1 Tab PO DAILY 08/30/14 Reported Impression . FULL NOTE DICTATED THANKS EXPECTED RESP FAILURE AFTER HERNIA REPAIR AECOPD ADD STEROIDS AND AKASH PALUMBO MD Jan 09, 2018 19:33
[2018-01-09] MEDS: predniSONE 10 MG TABLET PO SCH (19:45)
[2018-01-09] MEDS: IV NORMAL SALINE 1000ML BAG 1,000 ML IV SCH (19:53)
[2018-01-09] MEDS: cefTRIAXone IV Push 1 GM VIAL. IVP SCH (20:15)
[2018-01-09] MEDS: ATORVASTATIN CALCIUM 10 MG TABLET. PO SCH (20:44)
--- NOTE | 2018-01-09 22:21 | CONS ---
DATE OF CONSULTATION: 01/09/2018 ATTENDING PHYSICIAN: Edil Cordoba D.O. REASON FOR CONSULTATION: The patient is seen in pulmonary consultation at the request of Dr. Elizabeth for expected respiratory failure status post incarcerated right inguinal hernia with obstruction repair. The patient underwent right inguinal hernia repair with mesh. HISTORY OF PRESENT ILLNESS: The patient is an 87-year old who presented basically with abdominal pain, was noted to have a positive incarcerated hernia. He was taken to the operating room. He had expected respiratory failure and he was asked to manage his respiratory status. PAST MEDICAL HISTORY: Remarkable for coronary artery disease, coronary artery bypass grafting, chronic angina, aortic insufficiency, hyperlipidemia, CHF and hypertension along with diabetes. ALLERGIES: No known drug allergies. FAMILY HISTORY: Hypertension. SOCIAL HISTORY: Socially, he is retired. CURRENT MEDICATIONS: List was reviewed. REVIEW OF SYSTEMS: Unobtainable secondary to the patient's condition. PHYSICAL EXAMINATION: GENERAL: The patient was intubated. VITAL SIGNS: Stable. O2 saturation was greater than 92%. HEENT: Eyes, the sclerae were nonicteric. NECK: Jugular venous distention could not be assessed secondary to ET tube in place. CHEST: Full expansion. LUNGS: Adequate airway flow. No wheezes. CARDIOVASCULAR: Regular rate and rhythm with S1 and S2. No S3. ABDOMEN: Soft. EXTREMITIES: No clubbing, cyanosis or edema. NEUROLOGICAL: The patient was sedated. LABORATORY DATA: Labs were reviewed. White count was normal. Arterial blood gas; pH of 7.48, PaCO2 of 27 and pO2 of 156. INR was 1.2. Electrolytes were noted. RADIOLOGICAL DATA: Chest x-ray revealed bilateral peribronchial thickening. No consolidation and mild elevation of the right hemidiaphragm. IMPRESSION: 1. Expected respiratory, status post repair of incarcerated hernia. 2. Coronary artery disease, status post coronary artery bypass grafting. 3. Chronic angina. 4. Hyperlipidemia. 5. Chronic heart failure. 6. Hypertension. PLAN: 1. The patient will undergo a trial and possibly extubation. 2. Continue support with pain management. 3. DVT and GI prophylaxis. 4. Lasix. 5. Follow Cardiology input. I do appreciate the privilege in sharing in the patient's care. AKASH THURMAN MD DR: LILIANE/tania JOB#: [id number] / [id number]
[2018-01-10] VITALS (14 sets, daily range): BP systolic 103–135; BP diastolic 44–77
[2018-01-10 05:43] LABS: BASO % 0 % (0-3); EOS % 0 % (0-3); HEMATOCRIT 33.2 % (39.0-53.0); HEMOGLOBIN 11.2 g/dL (13.0-17.5); LYMPH # 0.5 x10^3/uL (1.0-4.8); LYMPH % 7 % (24-48); MEAN CORPUSCULAR HEMOGLOBIN 31 pg (25-35); MEAN CORPUSCULAR HGB CONC 34 g/dL (31-37); MEAN CORPUSCULAR VOLUME 92 fL (79-100); MONO # 1.2 x10^3/uL (0.0-1.1); MONO % 17 % (0-9); NEUT # 5.5 x10^3uL (1.8-7.7); NEUT % 76 % (31-73); PLATELET COUNT 173 x10^3/uL (140-400); RED CELL DISTRIBUTION WIDTH 15.1 % (11.5-14.5); WHITE BLOOD COUNT 7.2 x10^3/uL (4.0-11.0)
[2018-01-10 06:13] LABS: CALCIUM 7.9 mg/dL (8.5-10.1); CREATININE 1.6 mg/dL (0.7-1.3); GFR 40.9; POTASSIUM 3.8 mmol/L (3.5-5.1)
[2018-01-10] MEDS: IV NORMAL SALINE 1000ML BAG 1,000 ML IV SCH ×2 (06:30→16:36)
[2018-01-10] MEDS: CARVEDILOL 12.5 MG TABLET. PO SCH ×2 (08:00→16:29)
[2018-01-10] MEDS: INSULIN LISPRO 300 UNITS/3 ML INSULN.PEN. SQ SCH ×3 (08:00→16:37)
[2018-01-10] MEDS: ISOSORBIDE MONONITRATE ER 30 MG TAB.ER.24H PO SCH (09:00)
[2018-01-10] MEDS ORDERED: ENOXAPARIN 40 MG/0.4 ML SYRINGE. SQ SCH (09:00)
--- NOTE | 2018-01-10 10:03 | PDOC ---
SUBJECTIVE ROS Sitting in chair, states feeling alright , c/o Cough with pinkish sputum OBJECTIVE Vital Signs Vital Signs Date Time Temp Pulse Resp B/P (MAP) Pulse Ox O2 Delivery O2 Flow Rate FiO2 01/10/18 08:00 97.6 70 17 111/57 (75) 100 Nasal Cannula 2.0 97.6 I & 0 Intake and Output 01/10/18 07:00 Intake Total 1822.77 ml Output Total 1728 ml Balance 94.77 ml IV Total 1822.77 ml Output Urine Total 1728 ml PHYSICAL EXAM Physical Exam GENERAL: NAD HEENT-On O2 by NC (extubated ) neck - supple HEART: He has S1, S2 with a loud systolic and diastolic murmur. LUNGS: Clear ant, Non labored breathing ABDOMEN: Soft and tender. NEUROLOGICAL: AXOx 3 - Ramirez + Skin No rash DIAGNOSIS/ASSESSMENT Assessment & Plan LAUREN - ATN /Hypotensive/Significant Cardiac Hx Baseline renal function in 2014-normal Creat , No Interval labs in our system Pt denies having CKD Renal function improving slowly , E-Lytes and acid base stable Monitor, continue to Hold diuretics Incarcerated Rt Inguinal hernia- s/p emergent repair Hypertension- On multiple antihypertensives at home including Thiazides, Loop and [place]-I , bb etc Now Hypotensive DM- On meds Hx of CAD s/p CABG/' aortic stenosis and aortic insufficiency DW Pt, No family at bedside COMMENT/RELEVANT DATA Meds Current Medications Medications (Trade) Dose Ordered Sig/Sandra Start Time Stop Time Status Last Admin Dose Admin Acetaminophen (Tylenol) 650 mg PRN Q6HRS PRN 01/07/18 18:30 Albumin Human 500 ml @ 125 mls/hr 1X ONCE 01/08/18 13:15 01/08/18 17:14 DC 01/08/18 13:39 125 MLS/HR Albuterol Sulfate (Ventolin Neb Soln) 2.5 mg PRN Q6HRS PRN 01/09/18 17:45 01/09/18 19:26 2.5 MG Atorvastatin Calcium (Lipitor) 10 mg QHS 01/07/18 21:00 01/07/18 20:53 10 MG Bupivacaine HCl/ Epinephrine Bitart (Marcaine-Epi 0.5%-[id number]) 50 ml STK-MED ONCE 01/08/18 06:22 01/08/18 07:22 DC 01/08/18 11:56 50 ML Carvedilol (Coreg) 12.5 mg BIDWMEALS 01/07/18 21:00 01/08/18 08:21 12.5 MG Cefazolin Sodium/ Dextrose 50 ml @ 100 mls/hr 1X PREOP 01/08/18 08:00 01/08/18 18:00 DC 01/08/18 12:24 100 MLS/HR Ceftriaxone Sodium 1 gm/ Dextrose 50 ml @ 100 mls/hr Q24H 01/09/18 19:45 UNV Ceftriaxone Sodium (Rocephin) 1 gm Q24H 01/09/18 20:00 01/09/18 20:15 1 GM Clonidine HCl (Catapres) 0.1 mg PRN Q1HR PRN 01/07/18 18:30 Dexamethasone Sodium Phosphate (Decadron) 20 mg STK-MED ONCE 01/08/18 07:37 01/08/18 07:38 DC Dextrose (Dextrose 50%-Water Syringe) 12.5 gm PRN Q15MIN PRN 01/07/18 20:30 Enoxaparin Sodium (Lovenox 40mg Syringe) 40 mg DAILY 01/10/18 09:00 Fentanyl Citrate (Fentanyl 2ml Vial) 50 mcg PRN Q5MIN PRN 01/08/18 08:15 01/08/18 15:21 DC Furosemide (Lasix) 40 mg 1X ONCE 01/09/18 13:15 01/09/18 13:16 DC 01/09/18 13:15 40 MG Glycopyrrolate (Robinul) 1 mg STK-MED ONCE 01/08/18 12:20 01/08/18 12:21 DC Hydromorphone HCl (Dilaudid) 0.5 mg PRN Q10MIN PRN 01/08/18 08:15 01/08/18 15:22 DC Insulin Human Lispro (HumaLOG) 0-9 UNITS TIDWMEALS 01/08/18 08:00 Isosorbide Mononitrate (Imdur) 240 mg DAILY 01/08/18 09:00 Lidocaine HCl (Xylocaine-Mpf 1% 2ml Vial) 2 ml 1X PRN PRN 01/08/18 08:15 01/08/18 15:22 DC Morphine Sulfate (Morphine Sulfate) 1 mg PRN Q1HR PRN 01/08/18 13:30 Neostigmine Methylsulfate (Neostigmine Methylsulfate) 5 mg STK-MED ONCE 01/08/18 12:20 01/08/18 12:21 DC Nitroglycerin (Nitrostat) 0.4 mg PRN Q5MIN PRN 01/07/18 20:30 Norepinephrine Bitartrate 250 ml @ 1.875 mls/ hr CONT PRN 01/08/18 19:15 Ondansetron HCl (Zofran) 4 mg PRN Q6HRS PRN 01/08/18 13:30 Oxycodone/ Acetaminophen (Percocet 5/325) 2 tab PRN Q6HRS PRN 01/07/18 18:30 01/07/18 23:00 2 TAB Phenylephrine HCl (PHENYLEPHRINE in 0.9% NACL PF) 1 mg STK-MED ONCE 01/08/18 11:55 01/08/18 11:56 DC Prednisone (Prednisone) 30 mg DAILY 01/09/18 19:45 Prochlorperazine Edisylate (Compazine) 5 mg PACU PRN PRN 01/08/18 08:15 01/08/18 15:22 DC Propofol 100 ml @ 1.238 mls/ hr CONT PRN 01/08/18 12:45 01/09/18 06:22 12.383 MLS/HR Ringer's Solution 1,000 ml @ 100 mls/hr Q10H 01/08/18 13:19 01/08/18 18:02 DC Rocuronium Pep[place]rell (Zemuron) 50 mg STK-MED ONCE 01/08/18 07:34 01/08/18 07:35 DC Sevoflurane (Ultane) 60 ml STK-MED ONCE 01/08/18 12:30 01/08/18 12:31 DC Sodium Polystyrene Sulfonate (Kayexalate) 15 gm 1X ONCE 01/07/18 20:15 01/07/18 20:16 DC 01/07/18 20:48 15 GM Sodium Chloride (Normal Saline Flush) 3 ml QSHIFT PRN 01/08/18 13:30 Lab Laboratory Tests Test 01/09/18 11:30 01/09/18 12:17 01/09/18 17:12 01/09/18 20:18 O2 Saturation 98 % (92-99) Arterial Blood pH 7.36 (7.35-7.45) Arterial Blood pCO2 at Patient Temp 34 mmHg (35-46) Arterial Blood pO2 at Patient Temp 122 mmHg (65-108) Arterial Blood HCO3 19 mmol/L (21-28) Arterial Blood Base Excess -6 mmol/L (-3-3) FiO2 40 Glucose (Fingerstick) 115 mg/dL (70-99) 117 mg/dL (70-99) 121 mg/dL (70-99) Test 01/10/18 04:00 White Blood Count 7.2 x10^3/uL (4.0-11.0) Red Blood Count 3.60 x10^6/uL (4.30-5.70) Hemoglobin 11.2 g/dL (13.0-17.5) Hematocrit 33.2 % (39.0-53.0) Mean Corpuscular Volume 92 fL (79-100) Mean Corpuscular Hemoglobin 31 pg (25-35) Mean Corpuscular Hemoglobin Concent 34 g/dL (31-37) Red Cell Distribution Width 15.1 % (11.5-14.5) Platelet Count 173 x10^3/uL (140-400) Neutrophils (%) (Auto) 76 % (31-73) Lymphocytes (%) (Auto) 7 % (24-48) Monocytes (%) (Auto) 17 % (0-9) Eosinophils (%) (Auto) 0 % (0-3) Basophils (%) (Auto) 0 % (0-3) Neutrophils # (Auto) 5.5 x10^3uL (1.8-7.7) Lymphocytes # (Auto) 0.5 x10^3/uL (1.0-4.8) Monocytes # (Auto) 1.2 x10^3/uL (0.0-1.1) Eosinophils # (Auto) 0.0 x10^3/uL (0.0-0.7) Basophils # (Auto) 0.0 x10^3/uL (0.0-0.2) Sodium Level 147 mmol/L (136-145) Potassium Level 3.8 mmol/L (3.5-5.1) Chloride Level 112 mmol/L (98-107) Carbon Dioxide Level 23 mmol/L (21-32) Anion Gap 12 (6-14) Blood Urea Nitrogen 49 mg/dL (8-26) Creatinine 1.6 mg/dL (0.7-1.3) Estimated GFR (Cockcroft-Gault) 40.9 Glucose Level 102 mg/dL (70-99) Calcium Level 7.9 mg/dL (8.5-10.1) Results All relevant outside records, renal labs, imaging studies, telemetry/EKG's were reviewed. BRANDON FUNG MD Jan 10, 2018 10:03
[2018-01-10] MEDS: predniSONE 10 MG TABLET PO SCH (11:05)
[2018-01-10] MEDS: FUROSEMIDE 40 MG TABLET. PO SCH (11:05)
[2018-01-10] MEDS ORDERED: guaiFENesin ORAL 200 MG/10 ML LIQUID. PO PRN (11:15)
--- NOTE | 2018-01-10 11:16 | PDOC ---
PULMONARY PROGRESS NOTES Subjective COUGH PERSISTENT Vitals Vital Signs Date Time Temp Pulse Resp B/P (MAP) Pulse Ox O2 Delivery O2 Flow Rate FiO2 01/10/18 10:00 72 25 117/57 (77) 100 Nasal Cannula 2.0 01/10/18 08:00 97.6 97.6 General: Alert, No acute distress Lungs: Clear Cardiovascular: S1 Abdomen: Soft Neuro Exam: Alert Extremities: No Edema Skin: Warm Labs Laboratory Tests Test 01/08/18 12:50 01/08/18 13:30 01/08/18 14:00 01/08/18 14:08 O2 Saturation 99 % (92-99) Arterial Blood pH 7.37 (7.35-7.45) Arterial Blood pCO2 at Patient Temp 35 mmHg (35-46) Arterial Blood pO2 at Patient Temp 494 mmHg (65-108) Arterial Blood HCO3 20 mmol/L (21-28) Arterial Blood Base Excess -5 mmol/L (-3-3) FiO2 100 Nasal Screen MRSA (PCR) Negative (Negative) White Blood Count 5.1 x10^3/uL (4.0-11.0) Red Blood Count 3.56 x10^6/uL (4.30-5.70) Hemoglobin 11.1 g/dL (13.0-17.5) Hematocrit 32.7 % (39.0-53.0) Mean Corpuscular Volume 92 fL (79-100) Mean Corpuscular Hemoglobin 31 pg (25-35) Mean Corpuscular Hemoglobin Concent 34 g/dL (31-37) Red Cell Distribution Width 15.0 % (11.5-14.5) Platelet Count 178 x10^3/uL (140-400) Neutrophils (%) (Auto) 87 % (31-73) Lymphocytes (%) (Auto) 2 % (24-48) Monocytes (%) (Auto) 10 % (0-9) Eosinophils (%) (Auto) 0 % (0-3) Basophils (%) (Auto) 0 % (0-3) Neutrophils # (Auto) 4.5 x10^3uL (1.8-7.7) Lymphocytes # (Auto) 0.1 x10^3/uL (1.0-4.8) Monocytes # (Auto) 0.5 x10^3/uL (0.0-1.1) Eosinophils # (Auto) 0.0 x10^3/uL (0.0-0.7) Basophils # (Auto) 0.0 x10^3/uL (0.0-0.2) Prothrombin Time 15.0 SEC (11.7-14.0) Prothromb Time International Ratio 1.2 (0.8-1.1) Sodium Level 141 mmol/L (136-145) Potassium Level 4.9 mmol/L (3.5-5.1) Chloride Level 105 mmol/L (98-107) Carbon Dioxide Level 23 mmol/L (21-32) Anion Gap 13 (6-14) Blood Urea Nitrogen 55 mg/dL (8-26) Creatinine 1.8 mg/dL (0.7-1.3) Estimated GFR (Cockcroft-Gault) 35.7 BUN/Creatinine Ratio 31 (6-20) Glucose Level 215 mg/dL (70-99) Calcium Level 8.2 mg/dL (8.5-10.1) Magnesium Level 2.0 mg/dL (1.8-2.4) Total Bilirubin 0.7 mg/dL (0.2-1.0) Aspartate Amino Transf (AST/SGOT) 12 U/L (15-37) Alanine Aminotransferase (ALT/SGPT) 11 U/L (16-63) Alkaline Phosphatase 62 U/L (46-116) Total Protein 6.2 g/dL (6.4-8.2) Albumin 3.0 g/dL (3.4-5.0) Albumin/Globulin Ratio 0.9 (1.0-1.7) Glucose (Fingerstick) 195 mg/dL (70-99) Test 01/09/18 06:15 01/09/18 08:30 01/09/18 11:30 01/09/18 12:17 White Blood Count 4.6 x10^3/uL (4.0-11.0) Red Blood Count 3.27 x10^6/uL (4.30-5.70) Hemoglobin 10.1 g/dL (13.0-17.5) Hematocrit 29.8 % (39.0-53.0) Mean Corpuscular Volume 91 fL (79-100) Mean Corpuscular Hemoglobin 31 pg (25-35) Mean Corpuscular Hemoglobin Concent 34 g/dL (31-37) Red Cell Distribution Width 14.7 % (11.5-14.5) Platelet Count 150 x10^3/uL (140-400) Neutrophils (%) (Auto) 72 % (31-73) Lymphocytes (%) (Auto) 9 % (24-48) Monocytes (%) (Auto) 19 % (0-9) Eosinophils (%) (Auto) 0 % (0-3) Basophils (%) (Auto) 0 % (0-3) Neutrophils # (Auto) 3.3 x10^3uL (1.8-7.7) Lymphocytes # (Auto) 0.4 x10^3/uL (1.0-4.8) Monocytes # (Auto) 0.9 x10^3/uL (0.0-1.1) Eosinophils # (Auto) 0.0 x10^3/uL (0.0-0.7) Basophils # (Auto) 0.0 x10^3/uL (0.0-0.2) Segmented Neutrophils % 47 % (35-66) Band Neutrophils % 25 % (0-9) Lymphocytes % 8 % (24-48) Atypical Lymphocytes % (Manual) 1 % (0-0) Monocytes % 19 % (0-10) Platelet Estimate Adequate (ADEQUATE) Anisocytosis Slight Ovalocytes Few [place] Cells Few Sodium Level 143 mmol/L (136-145) Potassium Level 4.3 mmol/L (3.5-5.1) Chloride Level 110 mmol/L (98-107) Carbon Dioxide Level 21 mmol/L (21-32) Anion Gap 12 (6-14) Blood Urea Nitrogen 50 mg/dL (8-26) Creatinine 1.7 mg/dL (0.7-1.3) Estimated GFR (Cockcroft-Gault) 38.1 Glucose Level 95 mg/dL (70-99) Calcium Level 8.0 mg/dL (8.5-10.1) O2 Saturation 98 % (92-99) 98 % (92-99) Arterial Blood pH 7.48 (7.35-7.45) 7.36 (7.35-7.45) Arterial Blood pCO2 at Patient Temp 27 mmHg (35-46) 34 mmHg (35-46) Arterial Blood pO2 at Patient Temp 156 mmHg (65-108) 122 mmHg (65-108) Arterial Blood HCO3 20 mmol/L (21-28) 19 mmol/L (21-28) Arterial Blood Base Excess -3 mmol/L (-3-3) -6 mmol/L (-3-3) FiO2 40 40 Glucose (Fingerstick) 115 mg/dL (70-99) Test 01/09/18 17:12 01/09/18 20:18 01/10/18 04:00 Glucose (Fingerstick) 117 mg/dL (70-99) 121 mg/dL (70-99) White Blood Count 7.2 x10^3/uL (4.0-11.0) Red Blood Count 3.60 x10^6/uL (4.30-5.70) Hemoglobin 11.2 g/dL (13.0-17.5) Hematocrit 33.2 % (39.0-53.0) Mean Corpuscular Volume 92 fL (79-100) Mean Corpuscular Hemoglobin 31 pg (25-35) Mean Corpuscular Hemoglobin Concent 34 g/dL (31-37) Red Cell Distribution Width 15.1 % (11.5-14.5) Platelet Count 173 x10^3/uL (140-400) Neutrophils (%) (Auto) 76 % (31-73) Lymphocytes (%) (Auto) 7 % (24-48) Monocytes (%) (Auto) 17 % (0-9) Eosinophils (%) (Auto) 0 % (0-3) Basophils (%) (Auto) 0 % (0-3) Neutrophils # (Auto) 5.5 x10^3uL (1.8-7.7) Lymphocytes # (Auto) 0.5 x10^3/uL (1.0-4.8) Monocytes # (Auto) 1.2 x10^3/uL (0.0-1.1) Eosinophils # (Auto) 0.0 x10^3/uL (0.0-0.7) Basophils # (Auto) 0.0 x10^3/uL (0.0-0.2) Sodium Level 147 mmol/L (136-145) Potassium Level 3.8 mmol/L (3.5-5.1) Chloride Level 112 mmol/L (98-107) Carbon Dioxide Level 23 mmol/L (21-32) Anion Gap 12 (6-14) Blood Urea Nitrogen 49 mg/dL (8-26) Creatinine 1.6 mg/dL (0.7-1.3) Estimated GFR (Cockcroft-Gault) 40.9 Glucose Level 102 mg/dL (70-99) Calcium Level 7.9 mg/dL (8.5-10.1) Laboratory Tests Test 01/09/18 11:30 01/09/18 12:17 01/09/18 17:12 01/09/18 20:18 O2 Saturation 98 % (92-99) Arterial Blood pH 7.36 (7.35-7.45) Arterial Blood pCO2 at Patient Temp 34 mmHg (35-46) Arterial Blood pO2 at Patient Temp 122 mmHg (65-108) Arterial Blood HCO3 19 mmol/L (21-28) Arterial Blood Base Excess -6 mmol/L (-3-3) FiO2 40 Glucose (Fingerstick) 115 mg/dL (70-99) 117 mg/dL (70-99) 121 mg/dL (70-99) Test 01/10/18 04:00 White Blood Count 7.2 x10^3/uL (4.0-11.0) Red Blood Count 3.60 x10^6/uL (4.30-5.70) Hemoglobin 11.2 g/dL (13.0-17.5) Hematocrit 33.2 % (39.0-53.0) Mean Corpuscular Volume 92 fL (79-100) Mean Corpuscular Hemoglobin 31 pg (25-35) Mean Corpuscular Hemoglobin Concent 34 g/dL (31-37) Red Cell Distribution Width 15.1 % (11.5-14.5) Platelet Count 173 x10^3/uL (140-400) Neutrophils (%) (Auto) 76 % (31-73) Lymphocytes (%) (Auto) 7 % (24-48) Monocytes (%) (Auto) 17 % (0-9) Eosinophils (%) (Auto) 0 % (0-3) Basophils (%) (Auto) 0 % (0-3) Neutrophils # (Auto) 5.5 x10^3uL (1.8-7.7) Lymphocytes # (Auto) 0.5 x10^3/uL (1.0-4.8) Monocytes # (Auto) 1.2 x10^3/uL (0.0-1.1) Eosinophils # (Auto) 0.0 x10^3/uL (0.0-0.7) Basophils # (Auto) 0.0 x10^3/uL (0.0-0.2) Sodium Level 147 mmol/L (136-145) Potassium Level 3.8 mmol/L (3.5-5.1) Chloride Level 112 mmol/L (98-107) Carbon Dioxide Level 23 mmol/L (21-32) Anion Gap 12 (6-14) Blood Urea Nitrogen 49 mg/dL (8-26) Creatinine 1.6 mg/dL (0.7-1.3) Estimated GFR (Cockcroft-Gault) 40.9 Glucose Level 102 mg/dL (70-99) Calcium Level 7.9 mg/dL (8.5-10.1) Medications Active Scripts Medications Dose Route/Sig Max Daily Dose Days Date Category Isosorbide Mononitrate Er (Isosorbide Mononitrate) 120 Mg Tab.er.24h 2 Tab PO DAILY 01/07/18 Reported NITROGLYCERIN SubLingual (Nitroglycerin) 0.4 Mg Tab.subl 0.4 Mg SL PRN Q5MIN PRN 01/07/18 Reported Lisinopril 5 Mg Tablet 0.5 Tab PO DAILY 01/07/18 Reported Lasix (Furosemide) 40 Mg Tablet 1 Tab PO DAILY 01/07/18 Reported Carvedilol 12.5 Mg Tablet 1 Tab PO BID 01/07/18 Reported Clopidogrel (Clopidogrel Bisulfate) 75 Mg Tablet 1 Tab PO DAILY 01/07/18 Reported Pravastatin Sodium 40 Mg Tablet 1 Tab PO QHS 01/07/18 Reported Metformin Hcl 1,000 Mg Tablet 1,000 Mg PO BIDWMEALS 01/07/18 Reported Glimepiride 2 Mg Tablet 1 Tab PO BID 01/07/18 Reported Aspirin Ec (Aspirin) 81 Mg Tablet.dr 1 Tab PO DAILY 01/07/18 Reported NITROGLYCERIN SubLingual (Nitroglycerin) 0.4 Mg Tab.subl 0.4 Mg SL PRN Q5MIN PRN 08/30/14 Reported Isosorbide Mononitrate Er (Isosorbide Mononitrate) 120 Mg Tab.er.24h 120 Mg PO DAILY 08/30/14 Reported Carvedilol 25 Mg Tablet 1 Tab PO BID 08/30/14 Reported Plavix (Clopidogrel Bisulfate) 75 Mg Tablet 1 Tab PO DAILY 08/30/14 Reported Pravastatin Sodium 40 Mg Tablet 1 Tab PO QHS 08/30/14 Reported Metformin Hcl 1,000 Mg Tablet 1 Tab PO BID 08/30/14 Reported Hydrochlorothiazide Tablet (Hydrochlorothiazide) 12.5 Mg Tablet 25 Mg PO DAILY 08/30/14 Reported Glimepiride 2 Mg Tablet 2 Mg PO BID 08/30/14 Reported Aspirin 325 Mg Tablet 1 Tab PO DAILY 08/30/14 Reported Impression . 1. Expected respiratory, status post repair of incarcerated hernia. 2. Coronary artery disease, status post coronary artery bypass grafting. 3. Chronic angina. 4. Hyperlipidemia. 5. Chronic heart failure. 6. Hypertension. 7. PERSISTENT COUGH for past 3 weeks, suspect acute bronchitis Plan . 1. Extubated/ doing well 2. Continue support with pain management. 3. DVT and GI prophylaxis. 4. Lasix. 5. Follow Cardiology input. 6. Abx 7. Cough suppressant 7. add pulmicort CAMILLE WOOD MD Jan 10, 2018 11:16
[2018-01-10] MEDS ORDERED: EPINEPHrine VIAL 30 MG/30 ML VIAL ONE (12:00)
[2018-01-10] MEDS ORDERED: EPINEPHrine SYRINGE 1 MG/10 ML SYRINGE ONE (12:00)
--- NOTE | 2018-01-10 12:37 | PDOC ---
SURGICAL PROGRESS NOTE Subjective Pt sitting up in chair, no sig pain, marino clears well Vital Signs Vital Signs Date Time Temp Pulse Resp B/P (MAP) Pulse Ox O2 Delivery O2 Flow Rate FiO2 01/10/18 11:00 74 26 116/47 (70) 100 Nasal Cannula 2.0 01/10/18 08:00 97.6 97.6 I&O Intake and Output 01/10/18 07:00 Intake Total 1822.77 ml Output Total 1728 ml Balance 94.77 ml IV Total 1822.77 ml Output Urine Total 1728 ml PATIENT HAS A BALTAZAR: Yes (d/c today) General: Alert, Oriented X3, Cooperative, No acute distress Abdomen: Soft, No tenderness Labs Laboratory Tests Test 01/08/18 12:50 01/08/18 13:30 01/08/18 14:00 01/08/18 14:08 O2 Saturation 99 % (92-99) Arterial Blood pH 7.37 (7.35-7.45) Arterial Blood pCO2 at Patient Temp 35 mmHg (35-46) Arterial Blood pO2 at Patient Temp 494 mmHg (65-108) Arterial Blood HCO3 20 mmol/L (21-28) Arterial Blood Base Excess -5 mmol/L (-3-3) FiO2 100 Nasal Screen MRSA (PCR) Negative (Negative) White Blood Count 5.1 x10^3/uL (4.0-11.0) Red Blood Count 3.56 x10^6/uL (4.30-5.70) Hemoglobin 11.1 g/dL (13.0-17.5) Hematocrit 32.7 % (39.0-53.0) Mean Corpuscular Volume 92 fL (79-100) Mean Corpuscular Hemoglobin 31 pg (25-35) Mean Corpuscular Hemoglobin Concent 34 g/dL (31-37) Red Cell Distribution Width 15.0 % (11.5-14.5) Platelet Count 178 x10^3/uL (140-400) Neutrophils (%) (Auto) 87 % (31-73) Lymphocytes (%) (Auto) 2 % (24-48) Monocytes (%) (Auto) 10 % (0-9) Eosinophils (%) (Auto) 0 % (0-3) Basophils (%) (Auto) 0 % (0-3) Neutrophils # (Auto) 4.5 x10^3uL (1.8-7.7) Lymphocytes # (Auto) 0.1 x10^3/uL (1.0-4.8) Monocytes # (Auto) 0.5 x10^3/uL (0.0-1.1) Eosinophils # (Auto) 0.0 x10^3/uL (0.0-0.7) Basophils # (Auto) 0.0 x10^3/uL (0.0-0.2) Prothrombin Time 15.0 SEC (11.7-14.0) Prothromb Time International Ratio 1.2 (0.8-1.1) Sodium Level 141 mmol/L (136-145) Potassium Level 4.9 mmol/L (3.5-5.1) Chloride Level 105 mmol/L (98-107) Carbon Dioxide Level 23 mmol/L (21-32) Anion Gap 13 (6-14) Blood Urea Nitrogen 55 mg/dL (8-26) Creatinine 1.8 mg/dL (0.7-1.3) Estimated GFR (Cockcroft-Gault) 35.7 BUN/Creatinine Ratio 31 (6-20) Glucose Level 215 mg/dL (70-99) Calcium Level 8.2 mg/dL (8.5-10.1) Magnesium Level 2.0 mg/dL (1.8-2.4) Total Bilirubin 0.7 mg/dL (0.2-1.0) Aspartate Amino Transf (AST/SGOT) 12 U/L (15-37) Alanine Aminotransferase (ALT/SGPT) 11 U/L (16-63) Alkaline Phosphatase 62 U/L (46-116) Total Protein 6.2 g/dL (6.4-8.2) Albumin 3.0 g/dL (3.4-5.0) Albumin/Globulin Ratio 0.9 (1.0-1.7) Glucose (Fingerstick) 195 mg/dL (70-99) Test 01/09/18 06:15 01/09/18 08:30 01/09/18 11:30 01/09/18 12:17 White Blood Count 4.6 x10^3/uL (4.0-11.0) Red Blood Count 3.27 x10^6/uL (4.30-5.70) Hemoglobin 10.1 g/dL (13.0-17.5) Hematocrit 29.8 % (39.0-53.0) Mean Corpuscular Volume 91 fL (79-100) Mean Corpuscular Hemoglobin 31 pg (25-35) Mean Corpuscular Hemoglobin Concent 34 g/dL (31-37) Red Cell Distribution Width 14.7 % (11.5-14.5) Platelet Count 150 x10^3/uL (140-400) Neutrophils (%) (Auto) 72 % (31-73) Lymphocytes (%) (Auto) 9 % (24-48) Monocytes (%) (Auto) 19 % (0-9) Eosinophils (%) (Auto) 0 % (0-3) Basophils (%) (Auto) 0 % (0-3) Neutrophils # (Auto) 3.3 x10^3uL (1.8-7.7) Lymphocytes # (Auto) 0.4 x10^3/uL (1.0-4.8) Monocytes # (Auto) 0.9 x10^3/uL (0.0-1.1) Eosinophils # (Auto) 0.0 x10^3/uL (0.0-0.7) Basophils # (Auto) 0.0 x10^3/uL (0.0-0.2) Segmented Neutrophils % 47 % (35-66) Band Neutrophils % 25 % (0-9) Lymphocytes % 8 % (24-48) Atypical Lymphocytes % (Manual) 1 % (0-0) Monocytes % 19 % (0-10) Platelet Estimate Adequate (ADEQUATE) Anisocytosis Slight Ovalocytes Few [place] Cells Few Sodium Level 143 mmol/L (136-145) Potassium Level 4.3 mmol/L (3.5-5.1) Chloride Level 110 mmol/L (98-107) Carbon Dioxide Level 21 mmol/L (21-32) Anion Gap 12 (6-14) Blood Urea Nitrogen 50 mg/dL (8-26) Creatinine 1.7 mg/dL (0.7-1.3) Estimated GFR (Cockcroft-Gault) 38.1 Glucose Level 95 mg/dL (70-99) Calcium Level 8.0 mg/dL (8.5-10.1) O2 Saturation 98 % (92-99) 98 % (92-99) Arterial Blood pH 7.48 (7.35-7.45) 7.36 (7.35-7.45) Arterial Blood pCO2 at Patient Temp 27 mmHg (35-46) 34 mmHg (35-46) Arterial Blood pO2 at Patient Temp 156 mmHg (65-108) 122 mmHg (65-108) Arterial Blood HCO3 20 mmol/L (21-28) 19 mmol/L (21-28) Arterial Blood Base Excess -3 mmol/L (-3-3) -6 mmol/L (-3-3) FiO2 40 40 Glucose (Fingerstick) 115 mg/dL (70-99) Test 01/09/18 17:12 01/09/18 20:18 01/10/18 04:00 Glucose (Fingerstick) 117 mg/dL (70-99) 121 mg/dL (70-99) White Blood Count 7.2 x10^3/uL (4.0-11.0) Red Blood Count 3.60 x10^6/uL (4.30-5.70) Hemoglobin 11.2 g/dL (13.0-17.5) Hematocrit 33.2 % (39.0-53.0) Mean Corpuscular Volume 92 fL (79-100) Mean Corpuscular Hemoglobin 31 pg (25-35) Mean Corpuscular Hemoglobin Concent 34 g/dL (31-37) Red Cell Distribution Width 15.1 % (11.5-14.5) Platelet Count 173 x10^3/uL (140-400) Neutrophils (%) (Auto) 76 % (31-73) Lymphocytes (%) (Auto) 7 % (24-48) Monocytes (%) (Auto) 17 % (0-9) Eosinophils (%) (Auto) 0 % (0-3) Basophils (%) (Auto) 0 % (0-3) Neutrophils # (Auto) 5.5 x10^3uL (1.8-7.7) Lymphocytes # (Auto) 0.5 x10^3/uL (1.0-4.8) Monocytes # (Auto) 1.2 x10^3/uL (0.0-1.1) Eosinophils # (Auto) 0.0 x10^3/uL (0.0-0.7) Basophils # (Auto) 0.0 x10^3/uL (0.0-0.2) Sodium Level 147 mmol/L (136-145) Potassium Level 3.8 mmol/L (3.5-5.1) Chloride Level 112 mmol/L (98-107) Carbon Dioxide Level 23 mmol/L (21-32) Anion Gap 12 (6-14) Blood Urea Nitrogen 49 mg/dL (8-26) Creatinine 1.6 mg/dL (0.7-1.3) Estimated GFR (Cockcroft-Gault) 40.9 Glucose Level 102 mg/dL (70-99) Calcium Level 7.9 mg/dL (8.5-10.1) Laboratory Tests Test 01/09/18 17:12 01/09/18 20:18 01/10/18 04:00 Glucose (Fingerstick) 117 mg/dL (70-99) 121 mg/dL (70-99) White Blood Count 7.2 x10^3/uL (4.0-11.0) Red Blood Count 3.60 x10^6/uL (4.30-5.70) Hemoglobin 11.2 g/dL (13.0-17.5) Hematocrit 33.2 % (39.0-53.0) Mean Corpuscular Volume 92 fL (79-100) Mean Corpuscular Hemoglobin 31 pg (25-35) Mean Corpuscular Hemoglobin Concent 34 g/dL (31-37) Red Cell Distribution Width 15.1 % (11.5-14.5) Platelet Count 173 x10^3/uL (140-400) Neutrophils (%) (Auto) 76 % (31-73) Lymphocytes (%) (Auto) 7 % (24-48) Monocytes (%) (Auto) 17 % (0-9) Eosinophils (%) (Auto) 0 % (0-3) Basophils (%) (Auto) 0 % (0-3) Neutrophils # (Auto) 5.5 x10^3uL (1.8-7.7) Lymphocytes # (Auto) 0.5 x10^3/uL (1.0-4.8) Monocytes # (Auto) 1.2 x10^3/uL (0.0-1.1) Eosinophils # (Auto) 0.0 x10^3/uL (0.0-0.7) Basophils # (Auto) 0.0 x10^3/uL (0.0-0.2) Sodium Level 147 mmol/L (136-145) Potassium Level 3.8 mmol/L (3.5-5.1) Chloride Level 112 mmol/L (98-107) Carbon Dioxide Level 23 mmol/L (21-32) Anion Gap 12 (6-14) Blood Urea Nitrogen 49 mg/dL (8-26) Creatinine 1.6 mg/dL (0.7-1.3) Estimated GFR (Cockcroft-Gault) 40.9 Glucose Level 102 mg/dL (70-99) Calcium Level 7.9 mg/dL (8.5-10.1) Problem List s/p RIH repair doing well fifi d/c facundo OK to tx to floor CATHY CAPONE MD Jan 10, 2018 12:37
--- NOTE | 2018-01-10 13:59 | PDOC ---
PROGRESS NOTES Chief Complaint Chief Complaint acute hypoxic resp failure with surgery Postop right inguinal hernia repair with mesh. aortic stenosis, acute on chronic systolic CHF weakness and debilty vasomotor nephropathy on CKD 3, History of Present Illness History of Present Illness pt and ot out of bed, extubated con tcurrent transfer out of ICU Gentle IV fluids, Vitals Vitals Vital Signs Date Time Temp Pulse Resp B/P (MAP) Pulse Ox O2 Delivery O2 Flow Rate FiO2 01/10/18 11:00 74 26 116/47 (70) 100 Nasal Cannula 2.0 01/10/18 08:00 97.6 97.6 Physical Exam General: Alert, Oriented X3, Cooperative, No acute distress Heart: Regular rate, Other (1 to 2/6 systolic murmur and 2/6 diastolic murmur) Lungs: Clear Abdomen: Soft, No tenderness Extremities: No clubbing, No edema Skin: No rashes, No breakdown Labs LABS Laboratory Tests Test 01/09/18 17:12 01/09/18 20:18 01/10/18 04:00 01/10/18 12:51 Glucose (Fingerstick) 117 mg/dL (70-99) 121 mg/dL (70-99) 204 mg/dL (70-99) White Blood Count 7.2 x10^3/uL (4.0-11.0) Red Blood Count 3.60 x10^6/uL (4.30-5.70) Hemoglobin 11.2 g/dL (13.0-17.5) Hematocrit 33.2 % (39.0-53.0) Mean Corpuscular Volume 92 fL (79-100) Mean Corpuscular Hemoglobin 31 pg (25-35) Mean Corpuscular Hemoglobin Concent 34 g/dL (31-37) Red Cell Distribution Width 15.1 % (11.5-14.5) Platelet Count 173 x10^3/uL (140-400) Neutrophils (%) (Auto) 76 % (31-73) Lymphocytes (%) (Auto) 7 % (24-48) Monocytes (%) (Auto) 17 % (0-9) Eosinophils (%) (Auto) 0 % (0-3) Basophils (%) (Auto) 0 % (0-3) Neutrophils # (Auto) 5.5 x10^3uL (1.8-7.7) Lymphocytes # (Auto) 0.5 x10^3/uL (1.0-4.8) Monocytes # (Auto) 1.2 x10^3/uL (0.0-1.1) Eosinophils # (Auto) 0.0 x10^3/uL (0.0-0.7) Basophils # (Auto) 0.0 x10^3/uL (0.0-0.2) Sodium Level 147 mmol/L (136-145) Potassium Level 3.8 mmol/L (3.5-5.1) Chloride Level 112 mmol/L (98-107) Carbon Dioxide Level 23 mmol/L (21-32) Anion Gap 12 (6-14) Blood Urea Nitrogen 49 mg/dL (8-26) Creatinine 1.6 mg/dL (0.7-1.3) Estimated GFR (Cockcroft-Gault) 40.9 Glucose Level 102 mg/dL (70-99) Calcium Level 7.9 mg/dL (8.5-10.1) Review of Systems Review of Systems no n.v.d Comment Review of Relevant I have reviewed the following items jacob (where applicable) has been applied. Labs Laboratory Tests Test 01/08/18 14:00 01/08/18 14:08 01/09/18 06:15 01/09/18 08:30 White Blood Count 5.1 x10^3/uL (4.0-11.0) 4.6 x10^3/uL (4.0-11.0) Red Blood Count 3.56 x10^6/uL (4.30-5.70) 3.27 x10^6/uL (4.30-5.70) Hemoglobin 11.1 g/dL (13.0-17.5) 10.1 g/dL (13.0-17.5) Hematocrit 32.7 % (39.0-53.0) 29.8 % (39.0-53.0) Mean Corpuscular Volume 92 fL (79-100) 91 fL (79-100) Mean Corpuscular Hemoglobin 31 pg (25-35) 31 pg (25-35) Mean Corpuscular Hemoglobin Concent 34 g/dL (31-37) 34 g/dL (31-37) Red Cell Distribution Width 15.0 % (11.5-14.5) 14.7 % (11.5-14.5) Platelet Count 178 x10^3/uL (140-400) 150 x10^3/uL (140-400) Neutrophils (%) (Auto) 87 % (31-73) 72 % (31-73) Lymphocytes (%) (Auto) 2 % (24-48) 9 % (24-48) Monocytes (%) (Auto) 10 % (0-9) 19 % (0-9) Eosinophils (%) (Auto) 0 % (0-3) 0 % (0-3) Basophils (%) (Auto) 0 % (0-3) 0 % (0-3) Neutrophils # (Auto) 4.5 x10^3uL (1.8-7.7) 3.3 x10^3uL (1.8-7.7) Lymphocytes # (Auto) 0.1 x10^3/uL (1.0-4.8) 0.4 x10^3/uL (1.0-4.8) Monocytes # (Auto) 0.5 x10^3/uL (0.0-1.1) 0.9 x10^3/uL (0.0-1.1) Eosinophils # (Auto) 0.0 x10^3/uL (0.0-0.7) 0.0 x10^3/uL (0.0-0.7) Basophils # (Auto) 0.0 x10^3/uL (0.0-0.2) 0.0 x10^3/uL (0.0-0.2) Prothrombin Time 15.0 SEC (11.7-14.0) Prothromb Time International Ratio 1.2 (0.8-1.1) Sodium Level 141 mmol/L (136-145) 143 mmol/L (136-145) Potassium Level 4.9 mmol/L (3.5-5.1) 4.3 mmol/L (3.5-5.1) Chloride Level 105 mmol/L (98-107) 110 mmol/L (98-107) Carbon Dioxide Level 23 mmol/L (21-32) 21 mmol/L (21-32) Anion Gap 13 (6-14) 12 (6-14) Blood Urea Nitrogen 55 mg/dL (8-26) 50 mg/dL (8-26) Creatinine 1.8 mg/dL (0.7-1.3) 1.7 mg/dL (0.7-1.3) Estimated GFR (Cockcroft-Gault) 35.7 38.1 BUN/Creatinine Ratio 31 (6-20) Glucose Level 215 mg/dL (70-99) 95 mg/dL (70-99) Calcium Level 8.2 mg/dL (8.5-10.1) 8.0 mg/dL (8.5-10.1) Magnesium Level 2.0 mg/dL (1.8-2.4) Total Bilirubin 0.7 mg/dL (0.2-1.0) Aspartate Amino Transf (AST/SGOT) 12 U/L (15-37) Alanine Aminotransferase (ALT/SGPT) 11 U/L (16-63) Alkaline Phosphatase 62 U/L (46-116) Total Protein 6.2 g/dL (6.4-8.2) Albumin 3.0 g/dL (3.4-5.0) Albumin/Globulin Ratio 0.9 (1.0-1.7) Glucose (Fingerstick) 195 mg/dL (70-99) Segmented Neutrophils % 47 % (35-66) Band Neutrophils % 25 % (0-9) Lymphocytes % 8 % (24-48) Atypical Lymphocytes % (Manual) 1 % (0-0) Monocytes % 19 % (0-10) Platelet Estimate Adequate (ADEQUATE) Anisocytosis Slight Ovalocytes Few [place] Cells Few O2 Saturation 98 % (92-99) Arterial Blood pH 7.48 (7.35-7.45) Arterial Blood pCO2 at Patient Temp 27 mmHg (35-46) Arterial Blood pO2 at Patient Temp 156 mmHg (65-108) Arterial Blood HCO3 20 mmol/L (21-28) Arterial Blood Base Excess -3 mmol/L (-3-3) FiO2 40 Test 01/09/18 11:30 01/09/18 12:17 01/09/18 17:12 01/09/18 20:18 O2 Saturation 98 % (92-99) Arterial Blood pH 7.36 (7.35-7.45) Arterial Blood pCO2 at Patient Temp 34 mmHg (35-46) Arterial Blood pO2 at Patient Temp 122 mmHg (65-108) Arterial Blood HCO3 19 mmol/L (21-28) Arterial Blood Base Excess -6 mmol/L (-3-3) FiO2 40 Glucose (Fingerstick) 115 mg/dL (70-99) 117 mg/dL (70-99) 121 mg/dL (70-99) Test 01/10/18 04:00 01/10/18 12:51 White Blood Count 7.2 x10^3/uL (4.0-11.0) Red Blood Count 3.60 x10^6/uL (4.30-5.70) Hemoglobin 11.2 g/dL (13.0-17.5) Hematocrit 33.2 % (39.0-53.0) Mean Corpuscular Volume 92 fL (79-100) Mean Corpuscular Hemoglobin 31 pg (25-35) Mean Corpuscular Hemoglobin Concent 34 g/dL (31-37) Red Cell Distribution Width 15.1 % (11.5-14.5) Platelet Count 173 x10^3/uL (140-400) Neutrophils (%) (Auto) 76 % (31-73) Lymphocytes (%) (Auto) 7 % (24-48) Monocytes (%) (Auto) 17 % (0-9) Eosinophils (%) (Auto) 0 % (0-3) Basophils (%) (Auto) 0 % (0-3) Neutrophils # (Auto) 5.5 x10^3uL (1.8-7.7) Lymphocytes # (Auto) 0.5 x10^3/uL (1.0-4.8) Monocytes # (Auto) 1.2 x10^3/uL (0.0-1.1) Eosinophils # (Auto) 0.0 x10^3/uL (0.0-0.7) Basophils # (Auto) 0.0 x10^3/uL (0.0-0.2) Sodium Level 147 mmol/L (136-145) Potassium Level 3.8 mmol/L (3.5-5.1) Chloride Level 112 mmol/L (98-107) Carbon Dioxide Level 23 mmol/L (21-32) Anion Gap 12 (6-14) Blood Urea Nitrogen 49 mg/dL (8-26) Creatinine 1.6 mg/dL (0.7-1.3) Estimated GFR (Cockcroft-Gault) 40.9 Glucose Level 102 mg/dL (70-99) Calcium Level 7.9 mg/dL (8.5-10.1) Glucose (Fingerstick) 204 mg/dL (70-99) Laboratory Tests Test 01/09/18 17:12 01/09/18 20:18 01/10/18 04:00 01/10/18 12:51 Glucose (Fingerstick) 117 mg/dL (70-99) 121 mg/dL (70-99) 204 mg/dL (70-99) White Blood Count 7.2 x10^3/uL (4.0-11.0) Red Blood Count 3.60 x10^6/uL (4.30-5.70) Hemoglobin 11.2 g/dL (13.0-17.5) Hematocrit 33.2 % (39.0-53.0) Mean Corpuscular Volume 92 fL (79-100) Mean Corpuscular Hemoglobin 31 pg (25-35) Mean Corpuscular Hemoglobin Concent 34 g/dL (31-37) Red Cell Distribution Width 15.1 % (11.5-14.5) Platelet Count 173 x10^3/uL (140-400) Neutrophils (%) (Auto) 76 % (31-73) Lymphocytes (%) (Auto) 7 % (24-48) Monocytes (%) (Auto) 17 % (0-9) Eosinophils (%) (Auto) 0 % (0-3) Basophils (%) (Auto) 0 % (0-3) Neutrophils # (Auto) 5.5 x10^3uL (1.8-7.7) Lymphocytes # (Auto) 0.5 x10^3/uL (1.0-4.8) Monocytes # (Auto) 1.2 x10^3/uL (0.0-1.1) Eosinophils # (Auto) 0.0 x10^3/uL (0.0-0.7) Basophils # (Auto) 0.0 x10^3/uL (0.0-0.2) Sodium Level 147 mmol/L (136-145) Potassium Level 3.8 mmol/L (3.5-5.1) Chloride Level 112 mmol/L (98-107) Carbon Dioxide Level 23 mmol/L (21-32) Anion Gap 12 (6-14) Blood Urea Nitrogen 49 mg/dL (8-26) Creatinine 1.6 mg/dL (0.7-1.3) Estimated GFR (Cockcroft-Gault) 40.9 Glucose Level 102 mg/dL (70-99) Calcium Level 7.9 mg/dL (8.5-10.1) Medications Current Medications Sodium Chloride 1,000 ml @ 100 mls/hr Q10H IV Last administered on 01/09/18at 19 :53; Start 01/07/18 at 18:30 Oxycodone/ Acetaminophen (Percocet 5/325) 1 tab PRN Q4HRS PRN PO MODERATE PAIN ; Start 01/07/18 at 18:30 Oxycodone/ Acetaminophen (Percocet 5/325) 2 tab PRN Q6HRS PRN PO SEVERE PAIN Last administered on 01/07/18at 23:00; Start 01/07/18 at 18:30 Clonidine HCl (Catapres) 0.1 mg PRN Q1HR PRN PO HYPERTENSION, SEE COMMENTS; Start 01/07/18 at 18:30 Fentanyl Citrate (Fentanyl 2ml Vial) 50 mcg PRN Q2HR PRN IV SEVERE PAIN Last administered on 01/08/18at 19:42; Start 01/07/18 at 18:30 Ondansetron HCl (Zofran) 4 mg PRN Q6HRS PRN IV NAUSEA/VOMITING Last administered on 01/08/18at 10:04; Start 01/07/18 at 18:30; Stop 01/08/18 at 15:25; Status DC Acetaminophen (Tylenol) 650 mg PRN Q6HRS PRN PO MILD PAIN / TEMP; Start at 18:30 Cefazolin Sodium/ Dextrose 50 ml @ 100 mls/hr 1X PREOP IV Last administered on 01/08/18at 12:24; Start 01/08/18 at 08:00; Stop 01/08/18 at 18:00; Status DC Morphine Sulfate (Morphine Sulfate) 2 mg PRN Q2HR PRN IV PAIN MODERATE TO SEVERE Last administered on 01/08/18at 14:53; Start 01/07/18 at 20:00; Stop at 15:24; Status DC Sodium Polystyrene Sulfonate (Kayexalate) 15 gm 1X ONCE PO Last administered on 01/07/18at 20:48; Start 01/07/18 at 20:15; Stop 01/07/18 at 20:16; Status DC Carvedilol (Coreg) 12.5 mg BIDWMEALS PO Last administered on 01/08/18at 08:21; Start 01/07/18 at 21:00 Furosemide (Lasix) 40 mg DAILY PO Last administered on 01/10/18at 11:05; Start at 09:00 Nitroglycerin (Nitrostat) 0.4 mg PRN Q5MIN PRN SL CHEST PAIN; Start 01/07/18 at 20:30 Isosorbide Mononitrate (Imdur) 240 mg DAILY PO ; Start 01/08/18 at 09:00 Atorvastatin Calcium (Lipitor) 10 mg QHS PO Last administered on 01/07/18at 20:53 ; Start 01/07/18 at 21:00 Insulin Human Lispro (HumaLOG) 0-9 UNITS TIDWMEALS SQ Last administered on at 13:09; Start 01/08/18 at 08:00 Dextrose (Dextrose 50%-Water Syringe) 12.5 gm PRN Q15MIN PRN IV SEE COMMENTS; Start 01/07/18 at 20:30 Bupivacaine HCl/ Epinephrine Bitart (Marcaine-Epi 0.5%-[id number]) 50 ml STK-MED ONCE .ROUTE Last administered on 01/08/18at 11:56; Start 01/08/18 at 06:22; Stop 01/08/18 at 07:22; Status DC Fentanyl Citrate (Fentanyl 2ml Vial) 100 mcg STK-MED ONCE .ROUTE ; Start at 07:34; Stop 01/08/18 at 07:35; Status DC Rocuronium Pedro (Zemuron) 50 mg STK-MED ONCE .ROUTE ; Start 01/08/18 at 07:34 ; Stop 01/08/18 at 07:35; Status DC Propofol 20 ml @ As Directed STK-MED ONCE IV ; Start 01/08/18 at 07:37; Stop 01/08 at 07:38; Status DC Dexamethasone Sodium Phosphate (Decadron) 20 mg STK-MED ONCE .ROUTE ; Start 01/08 at 07:37; Stop 01/08/18 at 07:38; Status DC Ondansetron HCl (Zofran) 4 mg STK-MED ONCE .ROUTE ; Start 01/08/18 at 07:37; Stop 01/08/18 at 07:38; Status DC Ondansetron HCl (Zofran) 4 mg PRN Q6HRS PRN IV NAUSEA/VOMITING; Start 01/08/18 at 08:15; Stop 01/08/18 at 15:21; Status DC Fentanyl Citrate (Fentanyl 2ml Vial) 25 mcg PRN Q5MIN PRN IV MILD PAIN; Start 01/08/18 at 08:15; Stop 01/08/18 at 15:21; Status DC Fentanyl Citrate (Fentanyl 2ml Vial) 50 mcg PRN Q5MIN PRN IV MODERATE TO SEVERE PAIN; Start 01/08/18 at 08:15; Stop 01/08/18 at 15:21; Status DC Morphine Sulfate (Morphine Sulfate) 1 mg PRN Q10MIN PRN IV SEVERE PAIN; Start 01/08/18 at 08:15; Stop 01/08/18 at 15:21; Status DC Ringer's Solution 1,000 ml @ 30 mls/hr Q24H IV ; Start 01/08/18 at 08:01; Stop 01/08/18 at 15:22; Status DC Lidocaine HCl (Xylocaine-Mpf 1% 2ml Vial) 2 ml 1X PRN PRN ID IV START; Start at 08:15; Stop 01/08/18 at 15:22; Status DC Hydromorphone HCl (Dilaudid) 0.5 mg PRN Q10MIN PRN IV SEV PAIN, Second choice; Start 01/08/18 at 08:15; Stop 01/08/18 at 15:22; Status DC Prochlorperazine Edisylate (Compazine) 5 mg PACU PRN PRN IV NAUSEA, MRX1; Start 01/08/18 at 08:15; Stop 01/08/18 at 15:22; Status DC Phenylephrine HCl (PHENYLEPHRINE in 0.9% NACL PF) 1 mg STK-MED ONCE IV ; Start 01/08/18 at 11:55; Stop 01/08/18 at 11:56; Status DC Glycopyrrolate (Robinul) 1 mg STK-MED ONCE .ROUTE ; Start 01/08/18 at 12:20; Stop 01/08/18 at 12:21; Status DC Neostigmine Methylsulfate (Neostigmine Methylsulfate) 5 mg STK-MED ONCE .ROUTE ; Start 01/08/18 at 12:20; Stop 01/08/18 at 12:21; Status DC Sevoflurane (Ultane) 60 ml STK-MED ONCE IH ; Start 01/08/18 at 12:30; Stop at 12:31; Status DC Propofol 100 ml @ As Directed STK-MED ONCE IV ; Start 01/08/18 at 12:53; Stop at 12:54; Status DC Albumin Human 500 ml @ 125 mls/hr 1X ONCE IV Last administered on 01/08/18at 13 :39; Start 01/08/18 at 13:15; Stop 01/08/18 at 17:14; Status DC Sodium Chloride 500 ml @ 500 mls/hr 1X ONCE IV ; Start 01/08/18 at 13:15; Stop 01/08/18 at 14:14; Status DC Enoxaparin Sodium (Lovenox 40mg Syringe) 40 mg Q12HR SQ Last administered on 01/09/18at 08:30; Start 01/08/18 at 21:00; Stop 01/09/18 at 10:10; Status DC Sodium Chloride (Normal Saline Flush) 3 ml QSHIFT PRN IV AFTER MEDS AND BLOOD DRAWS; Start 01/08/18 at 13:30 Ringer's Solution 1,000 ml @ 100 mls/hr Q10H IV ; Start 01/08/18 at 13:19; Stop 01/08/18 at 18:02; Status DC Morphine Sulfate (Morphine Sulfate) 1 mg PRN Q1HR PRN IV PAIN mild; Start at 13:30 Ondansetron HCl (Zofran) 4 mg PRN Q6HRS PRN IV NAUESA, 1ST CHOICE; Start at 13:30 Propofol 100 ml @ 1.238 mls/ hr CONT PRN IV SEE I/O RECORD Last administered on 01/09/18at 06:22; Start 01/08/18 at 12:45 Norepinephrine Bitartrate 250 ml @ 1.875 mls/ hr CONT PRN IV SEE I/O RECORD; Start 01/08/18 at 19:15 Enoxaparin Sodium (Lovenox 40mg Syringe) 40 mg DAILY SQ Last administered on 01/10/18at 10:50; Start 01/10/18 at 09:00 Furosemide (Lasix) 40 mg 1X ONCE IVP Last administered on 01/09/18at 13:15; Start 01/09/18 at 13:15; Stop 01/09/18 at 13:16; Status DC Albuterol Sulfate (Ventolin Neb Soln) 2.5 mg PRN Q6HRS PRN NEB SHORTNESS OF BREATH Last administered on 01/09/18at 19:26; Start 01/09/18 at 17:45 Ceftriaxone Sodium 1 gm/ Dextrose 50 ml @ 100 mls/hr Q24H IV ; Start 01/09/18 at 19:45; Status UNV Prednisone (Prednisone) 30 mg DAILY PO Last administered on 01/10/18at 11:05; Start 01/09/18 at 19:45 Ceftriaxone Sodium (Rocephin) 1 gm Q24H IVP Last administered on 01/09/18at 20:15 ; Start 01/09/18 at 20:00 Guaifenesin (Robitussin) 200 mg PRN QID PRN PO COUGH; Start 01/10/18 at 11:15 Budesonide (Pulmicort) 0.5 mg RTBID NEB ; Start 01/10/18 at 12:00 Active Scripts Active Reported Isosorbide Mononitrate Er (Isosorbide Mononitrate) 120 Mg Tab.er.24h 2 Tab PO DAILY NITROGLYCERIN SubLingual (Nitroglycerin) 0.4 Mg Tab.subl 0.4 Mg SL PRN Q5MIN PRN Lisinopril 5 Mg Tablet 0.5 Tab PO DAILY Lasix (Furosemide) 40 Mg Tablet 1 Tab PO DAILY Carvedilol 12.5 Mg Tablet 1 Tab PO BID Clopidogrel (Clopidogrel Bisulfate) 75 Mg Tablet 1 Tab PO DAILY Pravastatin Sodium 40 Mg Tablet 1 Tab PO QHS Metformin Hcl 1,000 Mg Tablet 1,000 Mg PO BIDWMEALS Glimepiride 2 Mg Tablet 1 Tab PO BID Aspirin Ec (Aspirin) 81 Mg Tablet.dr 1 Tab PO DAILY NITROGLYCERIN SubLingual (Nitroglycerin) 0.4 Mg Tab.subl 0.4 Mg SL PRN Q5MIN PRN Isosorbide Mononitrate Er (Isosorbide Mononitrate) 120 Mg Tab.er.24h 120 Mg PO DAILY Carvedilol 25 Mg Tablet 1 Tab PO BID Plavix (Clopidogrel Bisulfate) 75 Mg Tablet 1 Tab PO DAILY Pravastatin Sodium 40 Mg Tablet 1 Tab PO QHS Metformin Hcl 1,000 Mg Tablet 1 Tab PO BID Hydrochlorothiazide Tablet (Hydrochlorothiazide) 12.5 Mg Tablet 25 Mg PO DAILY Glimepiride 2 Mg Tablet 2 Mg PO BID Aspirin 325 Mg Tablet 1 Tab PO DAILY Vitals/I & O Vital Sign - Last 24 Hours 01/09/18 01/09/18 01/09/18 01/09/18 14:00 15:00 16:00 16:00 Temp 98.1 98.1 Pulse 92 79 81 Resp 27 24 26 B/P (MAP) 138/63 (88) 118/49 (72) 116/55 (75) Pulse Ox 100 100 100 O2 Delivery Nasal Cannula Nasal Cannula Nasal Cannula Nasal Cannula O2 Flow Rate 3.0 3.0 3.0 3.0 01/09/18 01/09/18 01/09/18 01/09/18 17:00 18:00 19:00 19:30 Pulse 80 80 76 Resp 22 27 31 B/P (MAP) 126/56 (79) 117/51 (73) 111/59 (76) Pulse Ox 100 100 100 100 O2 Delivery Nasal Cannula Nasal Cannula Nasal Cannula Nasal Cannula O2 Flow Rate 3.0 2.0 2.0 3.0 01/09/18 01/09/18 01/09/18 01/09/18 20:00 20:00 21:00 22:00 Temp 97.5 97.5 Pulse 80 78 72 Resp 27 18 34 B/P (MAP) 112/46 (68) 116/47 (70) 106/49 (68) Pulse Ox 96 99 100 O2 Delivery Nasal Cannula Nasal Cannula Nasal Cannula Nasal Cannula O2 Flow Rate 3.0 2.0 3.0 3.0 01/09/18 01/10/18 01/10/18 01/10/18 23:00 00:00 00:00 01:00 Temp 97.5 97.5 Pulse 75 72 73 Resp 25 32 26 B/P (MAP) 100/51 (67) 109/49 (69) 103/48 (66) Pulse Ox 100 100 100 O2 Delivery Nasal Cannula Nasal Cannula Nasal Cannula Nasal Cannula O2 Flow Rate 3.0 2.0 2.0 2.0 01/10/18 01/10/18 01/10/18 01/10/18 02:00 03:00 04:00 04:00 Temp 97.6 97.6 Pulse 79 76 83 Resp 24 25 24 B/P (MAP) 115/54 (74) 110/53 (72) 110/44 (66) Pulse Ox 100 100 100 O2 Delivery Nasal Cannula Nasal Cannula Nasal Cannula Nasal Cannula O2 Flow Rate 2.0 2.0 2.0 2.0 01/10/18 01/10/18 01/10/18 01/10/18 05:00 06:00 07:00 08:00 Pulse 72 82 75 70 Resp 27 29 26 B/P (MAP) 109/47 (67) 112/49 (70) 124/54 (77) 111/57 Pulse Ox 100 100 100 O2 Delivery Nasal Cannula Nasal Cannula Nasal Cannula O2 Flow Rate 2.0 2.0 2.0 01/10/18 01/10/18 01/10/18 01/10/18 08:00 08:00 09:00 09:00 Temp 97.6 97.6 Pulse 70 70 70 Resp 17 25 B/P (MAP) 111/57 (75) 111/57 112/47 (68) Pulse Ox 100 100 O2 Delivery Nasal Cannula Nasal Cannula Nasal Cannula O2 Flow Rate 2.0 2.0 2.0 01/10/18 01/10/18 10:00 11:00 Pulse 72 74 Resp 25 26 B/P (MAP) 117/57 (77) 116/47 (70) Pulse Ox 100 100 O2 Delivery Nasal Cannula Nasal Cannula O2 Flow Rate 2.0 2.0 Intake and Output 01/09/18 01/09/18 01/10/18 15:00 23:00 07:00 Intake Total 43.77 ml 1100 ml 679 ml Output Total 633 ml 745 ml 350 ml Balance -589.23 ml 355 ml 329 ml JOSH MARTELL MD Jan 10, 2018 13:59
[2018-01-10] MEDS: ONDANSETRON PF 4 MG/2 ML VIAL. IV PRN ×2 (15:15→20:48)
--- NOTE | 2018-01-10 16:01 | PDOC ---
PROGRESS NOTES Subjective Subjective Patient's up in a chair. Has some nausea. Had a BM earlier. No cardiac complaints. Objective Objective Vital Signs Date Time Temp Pulse Resp B/P (MAP) Pulse Ox O2 Delivery O2 Flow Rate FiO2 01/10/18 11:00 74 26 116/47 (70) 100 Nasal Cannula 2.0 01/10/18 08:00 97.6 97.6 Intake and Output 01/10/18 07:00 Intake Total 1822.77 ml Output Total 1728 ml Balance 94.77 ml IV Total 1822.77 ml Output Urine Total 1728 ml Physical Exam Physical Exam Moving air well. Some crackles. Heart sounds unchanged. Assessment Assessment Good progress. Patient compensated cardiac-swanson. May transfer out of ICU. Comment Review of Relevant I have reviewed the following items jacob (where applicable) has been applied. Labs Laboratory Tests Test 01/09/18 06:15 01/09/18 08:30 01/09/18 11:30 01/09/18 12:17 White Blood Count 4.6 x10^3/uL (4.0-11.0) Red Blood Count 3.27 x10^6/uL (4.30-5.70) Hemoglobin 10.1 g/dL (13.0-17.5) Hematocrit 29.8 % (39.0-53.0) Mean Corpuscular Volume 91 fL (79-100) Mean Corpuscular Hemoglobin 31 pg (25-35) Mean Corpuscular Hemoglobin Concent 34 g/dL (31-37) Red Cell Distribution Width 14.7 % (11.5-14.5) Platelet Count 150 x10^3/uL (140-400) Neutrophils (%) (Auto) 72 % (31-73) Lymphocytes (%) (Auto) 9 % (24-48) Monocytes (%) (Auto) 19 % (0-9) Eosinophils (%) (Auto) 0 % (0-3) Basophils (%) (Auto) 0 % (0-3) Neutrophils # (Auto) 3.3 x10^3uL (1.8-7.7) Lymphocytes # (Auto) 0.4 x10^3/uL (1.0-4.8) Monocytes # (Auto) 0.9 x10^3/uL (0.0-1.1) Eosinophils # (Auto) 0.0 x10^3/uL (0.0-0.7) Basophils # (Auto) 0.0 x10^3/uL (0.0-0.2) Segmented Neutrophils % 47 % (35-66) Band Neutrophils % 25 % (0-9) Lymphocytes % 8 % (24-48) Atypical Lymphocytes % (Manual) 1 % (0-0) Monocytes % 19 % (0-10) Platelet Estimate Adequate (ADEQUATE) Anisocytosis Slight Ovalocytes Few [place] Cells Few Sodium Level 143 mmol/L (136-145) Potassium Level 4.3 mmol/L (3.5-5.1) Chloride Level 110 mmol/L (98-107) Carbon Dioxide Level 21 mmol/L (21-32) Anion Gap 12 (6-14) Blood Urea Nitrogen 50 mg/dL (8-26) Creatinine 1.7 mg/dL (0.7-1.3) Estimated GFR (Cockcroft-Gault) 38.1 Glucose Level 95 mg/dL (70-99) Calcium Level 8.0 mg/dL (8.5-10.1) O2 Saturation 98 % (92-99) 98 % (92-99) Arterial Blood pH 7.48 (7.35-7.45) 7.36 (7.35-7.45) Arterial Blood pCO2 at Patient Temp 27 mmHg (35-46) 34 mmHg (35-46) Arterial Blood pO2 at Patient Temp 156 mmHg (65-108) 122 mmHg (65-108) Arterial Blood HCO3 20 mmol/L (21-28) 19 mmol/L (21-28) Arterial Blood Base Excess -3 mmol/L (-3-3) -6 mmol/L (-3-3) FiO2 40 40 Glucose (Fingerstick) 115 mg/dL (70-99) Test 01/09/18 17:12 01/09/18 20:18 01/10/18 04:00 01/10/18 12:51 Glucose (Fingerstick) 117 mg/dL (70-99) 121 mg/dL (70-99) 204 mg/dL (70-99) White Blood Count 7.2 x10^3/uL (4.0-11.0) Red Blood Count 3.60 x10^6/uL (4.30-5.70) Hemoglobin 11.2 g/dL (13.0-17.5) Hematocrit 33.2 % (39.0-53.0) Mean Corpuscular Volume 92 fL (79-100) Mean Corpuscular Hemoglobin 31 pg (25-35) Mean Corpuscular Hemoglobin Concent 34 g/dL (31-37) Red Cell Distribution Width 15.1 % (11.5-14.5) Platelet Count 173 x10^3/uL (140-400) Neutrophils (%) (Auto) 76 % (31-73) Lymphocytes (%) (Auto) 7 % (24-48) Monocytes (%) (Auto) 17 % (0-9) Eosinophils (%) (Auto) 0 % (0-3) Basophils (%) (Auto) 0 % (0-3) Neutrophils # (Auto) 5.5 x10^3uL (1.8-7.7) Lymphocytes # (Auto) 0.5 x10^3/uL (1.0-4.8) Monocytes # (Auto) 1.2 x10^3/uL (0.0-1.1) Eosinophils # (Auto) 0.0 x10^3/uL (0.0-0.7) Basophils # (Auto) 0.0 x10^3/uL (0.0-0.2) Sodium Level 147 mmol/L (136-145) Potassium Level 3.8 mmol/L (3.5-5.1) Chloride Level 112 mmol/L (98-107) Carbon Dioxide Level 23 mmol/L (21-32) Anion Gap 12 (6-14) Blood Urea Nitrogen 49 mg/dL (8-26) Creatinine 1.6 mg/dL (0.7-1.3) Estimated GFR (Cockcroft-Gault) 40.9 Glucose Level 102 mg/dL (70-99) Calcium Level 7.9 mg/dL (8.5-10.1) Laboratory Tests Test 01/09/18 17:12 01/09/18 20:18 01/10/18 04:00 01/10/18 12:51 Glucose (Fingerstick) 117 mg/dL (70-99) 121 mg/dL (70-99) 204 mg/dL (70-99) White Blood Count 7.2 x10^3/uL (4.0-11.0) Red Blood Count 3.60 x10^6/uL (4.30-5.70) Hemoglobin 11.2 g/dL (13.0-17.5) Hematocrit 33.2 % (39.0-53.0) Mean Corpuscular Volume 92 fL (79-100) Mean Corpuscular Hemoglobin 31 pg (25-35) Mean Corpuscular Hemoglobin Concent 34 g/dL (31-37) Red Cell Distribution Width 15.1 % (11.5-14.5) Platelet Count 173 x10^3/uL (140-400) Neutrophils (%) (Auto) 76 % (31-73) Lymphocytes (%) (Auto) 7 % (24-48) Monocytes (%) (Auto) 17 % (0-9) Eosinophils (%) (Auto) 0 % (0-3) Basophils (%) (Auto) 0 % (0-3) Neutrophils # (Auto) 5.5 x10^3uL (1.8-7.7) Lymphocytes # (Auto) 0.5 x10^3/uL (1.0-4.8) Monocytes # (Auto) 1.2 x10^3/uL (0.0-1.1) Eosinophils # (Auto) 0.0 x10^3/uL (0.0-0.7) Basophils # (Auto) 0.0 x10^3/uL (0.0-0.2) Sodium Level 147 mmol/L (136-145) Potassium Level 3.8 mmol/L (3.5-5.1) Chloride Level 112 mmol/L (98-107) Carbon Dioxide Level 23 mmol/L (21-32) Anion Gap 12 (6-14) Blood Urea Nitrogen 49 mg/dL (8-26) Creatinine 1.6 mg/dL (0.7-1.3) Estimated GFR (Cockcroft-Gault) 40.9 Glucose Level 102 mg/dL (70-99) Calcium Level 7.9 mg/dL (8.5-10.1) Medications Current Medications Sodium Chloride 1,000 ml @ 100 mls/hr Q10H IV Last administered on 01/09/18at 19 :53; Start 01/07/18 at 18:30 Oxycodone/ Acetaminophen (Percocet 5/325) 1 tab PRN Q4HRS PRN PO MODERATE PAIN ; Start 01/07/18 at 18:30 Oxycodone/ Acetaminophen (Percocet 5/325) 2 tab PRN Q6HRS PRN PO SEVERE PAIN Last administered on 01/07/18at 23:00; Start 01/07/18 at 18:30 Clonidine HCl (Catapres) 0.1 mg PRN Q1HR PRN PO HYPERTENSION, SEE COMMENTS; Start 01/07/18 at 18:30 Fentanyl Citrate (Fentanyl 2ml Vial) 50 mcg PRN Q2HR PRN IV SEVERE PAIN Last administered on 01/08/18at 19:42; Start 01/07/18 at 18:30 Ondansetron HCl (Zofran) 4 mg PRN Q6HRS PRN IV NAUSEA/VOMITING Last administered on 01/08/18at 10:04; Start 01/07/18 at 18:30; Stop 01/08/18 at 15:25; Status DC Acetaminophen (Tylenol) 650 mg PRN Q6HRS PRN PO MILD PAIN / TEMP; Start at 18:30 Cefazolin Sodium/ Dextrose 50 ml @ 100 mls/hr 1X PREOP IV Last administered on 01/08/18at 12:24; Start 01/08/18 at 08:00; Stop 01/08/18 at 18:00; Status DC Morphine Sulfate (Morphine Sulfate) 2 mg PRN Q2HR PRN IV PAIN MODERATE TO SEVERE Last administered on 01/08/18at 14:53; Start 01/07/18 at 20:00; Stop at 15:24; Status DC Sodium Polystyrene Sulfonate (Kayexalate) 15 gm 1X ONCE PO Last administered on 01/07/18at 20:48; Start 01/07/18 at 20:15; Stop 01/07/18 at 20:16; Status DC Carvedilol (Coreg) 12.5 mg BIDWMEALS PO Last administered on 01/08/18at 08:21; Start 01/07/18 at 21:00 Furosemide (Lasix) 40 mg DAILY PO Last administered on 01/10/18at 11:05; Start at 09:00 Nitroglycerin (Nitrostat) 0.4 mg PRN Q5MIN PRN SL CHEST PAIN; Start 01/07/18 at 20:30 Isosorbide Mononitrate (Imdur) 240 mg DAILY PO ; Start 01/08/18 at 09:00 Atorvastatin Calcium (Lipitor) 10 mg QHS PO Last administered on 01/07/18at 20:53 ; Start 01/07/18 at 21:00 Insulin Human Lispro (HumaLOG) 0-9 UNITS TIDWMEALS SQ Last administered on at 13:09; Start 01/08/18 at 08:00 Dextrose (Dextrose 50%-Water Syringe) 12.5 gm PRN Q15MIN PRN IV SEE COMMENTS; Start 01/07/18 at 20:30 Bupivacaine HCl/ Epinephrine Bitart (Marcaine-Epi 0.5%-[id number]) 50 ml STK-MED ONCE .ROUTE Last administered on 01/08/18at 11:56; Start 01/08/18 at 06:22; Stop 01/08/18 at 07:22; Status DC Fentanyl Citrate (Fentanyl 2ml Vial) 100 mcg STK-MED ONCE .ROUTE ; Start at 07:34; Stop 01/08/18 at 07:35; Status DC Rocuronium Burton (Zemuron) 50 mg STK-MED ONCE .ROUTE ; Start 01/08/18 at 07:34 ; Stop 01/08/18 at 07:35; Status DC Propofol 20 ml @ As Directed STK-MED ONCE IV ; Start 01/08/18 at 07:37; Stop 01/08 at 07:38; Status DC Dexamethasone Sodium Phosphate (Decadron) 20 mg STK-MED ONCE .ROUTE ; Start 01/08 at 07:37; Stop 01/08/18 at 07:38; Status DC Ondansetron HCl (Zofran) 4 mg STK-MED ONCE .ROUTE ; Start 01/08/18 at 07:37; Stop 01/08/18 at 07:38; Status DC Ondansetron HCl (Zofran) 4 mg PRN Q6HRS PRN IV NAUSEA/VOMITING; Start 01/08/18 at 08:15; Stop 01/08/18 at 15:21; Status DC Fentanyl Citrate (Fentanyl 2ml Vial) 25 mcg PRN Q5MIN PRN IV MILD PAIN; Start 01/08/18 at 08:15; Stop 01/08/18 at 15:21; Status DC Fentanyl Citrate (Fentanyl 2ml Vial) 50 mcg PRN Q5MIN PRN IV MODERATE TO SEVERE PAIN; Start 01/08/18 at 08:15; Stop 01/08/18 at 15:21; Status DC Morphine Sulfate (Morphine Sulfate) 1 mg PRN Q10MIN PRN IV SEVERE PAIN; Start 01/08/18 at 08:15; Stop 01/08/18 at 15:21; Status DC Ringer's Solution 1,000 ml @ 30 mls/hr Q24H IV ; Start 01/08/18 at 08:01; Stop 01/08/18 at 15:22; Status DC Lidocaine HCl (Xylocaine-Mpf 1% 2ml Vial) 2 ml 1X PRN PRN ID IV START; Start at 08:15; Stop 01/08/18 at 15:22; Status DC Hydromorphone HCl (Dilaudid) 0.5 mg PRN Q10MIN PRN IV SEV PAIN, Second choice; Start 01/08/18 at 08:15; Stop 01/08/18 at 15:22; Status DC Prochlorperazine Edisylate (Compazine) 5 mg PACU PRN PRN IV NAUSEA, MRX1; Start 01/08/18 at 08:15; Stop 01/08/18 at 15:22; Status DC Phenylephrine HCl (PHENYLEPHRINE in 0.9% NACL PF) 1 mg STK-MED ONCE IV ; Start 01/08/18 at 11:55; Stop 01/08/18 at 11:56; Status DC Glycopyrrolate (Robinul) 1 mg STK-MED ONCE .ROUTE ; Start 01/08/18 at 12:20; Stop 01/08/18 at 12:21; Status DC Neostigmine Methylsulfate (Neostigmine Methylsulfate) 5 mg STK-MED ONCE .ROUTE ; Start 01/08/18 at 12:20; Stop 01/08/18 at 12:21; Status DC Sevoflurane (Ultane) 60 ml STK-MED ONCE IH ; Start 01/08/18 at 12:30; Stop at 12:31; Status DC Propofol 100 ml @ As Directed STK-MED ONCE IV ; Start 01/08/18 at 12:53; Stop at 12:54; Status DC Albumin Human 500 ml @ 125 mls/hr 1X ONCE IV Last administered on 01/08/18at 13 :39; Start 01/08/18 at 13:15; Stop 01/08/18 at 17:14; Status DC Sodium Chloride 500 ml @ 500 mls/hr 1X ONCE IV ; Start 01/08/18 at 13:15; Stop 01/08/18 at 14:14; Status DC Enoxaparin Sodium (Lovenox 40mg Syringe) 40 mg Q12HR SQ Last administered on 01/09/18at 08:30; Start 01/08/18 at 21:00; Stop 01/09/18 at 10:10; Status DC Sodium Chloride (Normal Saline Flush) 3 ml QSHIFT PRN IV AFTER MEDS AND BLOOD DRAWS; Start 01/08/18 at 13:30 Ringer's Solution 1,000 ml @ 100 mls/hr Q10H IV ; Start 01/08/18 at 13:19; Stop 01/08/18 at 18:02; Status DC Morphine Sulfate (Morphine Sulfate) 1 mg PRN Q1HR PRN IV PAIN mild; Start at 13:30 Ondansetron HCl (Zofran) 4 mg PRN Q6HRS PRN IV NAUESA, 1ST CHOICE Last administered on 01/10/18at 15:15; Start 01/08/18 at 13:30 Propofol 100 ml @ 1.238 mls/ hr CONT PRN IV SEE I/O RECORD Last administered on 01/09/18at 06:22; Start 01/08/18 at 12:45 Norepinephrine Bitartrate 250 ml @ 1.875 mls/ hr CONT PRN IV SEE I/O RECORD; Start 01/08/18 at 19:15 Enoxaparin Sodium (Lovenox 40mg Syringe) 40 mg DAILY SQ Last administered on 01/10/18at 10:50; Start 01/10/18 at 09:00 Furosemide (Lasix) 40 mg 1X ONCE IVP Last administered on 01/09/18at 13:15; Start 01/09/18 at 13:15; Stop 01/09/18 at 13:16; Status DC Albuterol Sulfate (Ventolin Neb Soln) 2.5 mg PRN Q6HRS PRN NEB SHORTNESS OF BREATH Last administered on 01/09/18at 19:26; Start 01/09/18 at 17:45 Ceftriaxone Sodium 1 gm/ Dextrose 50 ml @ 100 mls/hr Q24H IV ; Start 01/09/18 at 19:45; Status UNV Prednisone (Prednisone) 30 mg DAILY PO Last administered on 01/10/18at 11:05; Start 01/09/18 at 19:45 Ceftriaxone Sodium (Rocephin) 1 gm Q24H IVP Last administered on 01/09/18at 20:15 ; Start 01/09/18 at 20:00 Guaifenesin (Robitussin) 200 mg PRN QID PRN PO COUGH; Start 01/10/18 at 11:15 Budesonide (Pulmicort) 0.5 mg RTBID NEB ; Start 01/10/18 at 12:00 Active Scripts Active Reported Isosorbide Mononitrate Er (Isosorbide Mononitrate) 120 Mg Tab.er.24h 2 Tab PO DAILY NITROGLYCERIN SubLingual (Nitroglycerin) 0.4 Mg Tab.subl 0.4 Mg SL PRN Q5MIN PRN Lisinopril 5 Mg Tablet 0.5 Tab PO DAILY Lasix (Furosemide) 40 Mg Tablet 1 Tab PO DAILY Carvedilol 12.5 Mg Tablet 1 Tab PO BID Clopidogrel (Clopidogrel Bisulfate) 75 Mg Tablet 1 Tab PO DAILY Pravastatin Sodium 40 Mg Tablet 1 Tab PO QHS Metformin Hcl 1,000 Mg Tablet 1,000 Mg PO BIDWMEALS Glimepiride 2 Mg Tablet 1 Tab PO BID Aspirin Ec (Aspirin) 81 Mg Tablet.dr 1 Tab PO DAILY NITROGLYCERIN SubLingual (Nitroglycerin) 0.4 Mg Tab.subl 0.4 Mg SL PRN Q5MIN PRN Isosorbide Mononitrate Er (Isosorbide Mononitrate) 120 Mg Tab.er.24h 120 Mg PO DAILY Carvedilol 25 Mg Tablet 1 Tab PO BID Plavix (Clopidogrel Bisulfate) 75 Mg Tablet 1 Tab PO DAILY Pravastatin Sodium 40 Mg Tablet 1 Tab PO QHS Metformin Hcl 1,000 Mg Tablet 1 Tab PO BID Hydrochlorothiazide Tablet (Hydrochlorothiazide) 12.5 Mg Tablet 25 Mg PO DAILY Glimepiride 2 Mg Tablet 2 Mg PO BID Aspirin 325 Mg Tablet 1 Tab PO DAILY Vitals/I & O Vital Sign - Last 24 Hours 01/09/18 01/09/18 01/09/18 01/09/18 16:00 16:00 17:00 18:00 Temp 98.1 98.1 Pulse 81 80 80 Resp 26 22 27 B/P (MAP) 116/55 (75) 126/56 (79) 117/51 (73) Pulse Ox 100 100 100 O2 Delivery Nasal Cannula Nasal Cannula Nasal Cannula Nasal Cannula O2 Flow Rate 3.0 3.0 3.0 2.0 01/09/18 01/09/18 01/09/18 01/09/18 19:00 19:30 20:00 20:00 Temp 97.5 97.5 Pulse 76 80 Resp 31 27 B/P (MAP) 111/59 (76) 112/46 (68) Pulse Ox 100 100 96 O2 Delivery Nasal Cannula Nasal Cannula Nasal Cannula Nasal Cannula O2 Flow Rate 2.0 3.0 3.0 2.0 01/09/18 01/09/18 01/09/18 01/10/18 21:00 22:00 23:00 00:00 Pulse 78 72 75 Resp 18 34 25 B/P (MAP) 116/47 (70) 106/49 (68) 100/51 (67) Pulse Ox 99 100 100 O2 Delivery Nasal Cannula Nasal Cannula Nasal Cannula Nasal Cannula O2 Flow Rate 3.0 3.0 3.0 2.0 01/10/18 01/10/18 01/10/18 01/10/18 00:00 01:00 02:00 03:00 Temp 97.5 97.5 Pulse 72 73 79 76 Resp 32 26 24 25 B/P (MAP) 109/49 (69) 103/48 (66) 115/54 (74) 110/53 (72) Pulse Ox 100 100 100 100 O2 Delivery Nasal Cannula Nasal Cannula Nasal Cannula Nasal Cannula O2 Flow Rate 2.0 2.0 2.0 2.0 01/10/18 01/10/18 01/10/18 01/10/18 04:00 04:00 05:00 06:00 Temp 97.6 97.6 Pulse 83 72 82 Resp 24 27 29 B/P (MAP) 110/44 (66) 109/47 (67) 112/49 (70) Pulse Ox 100 100 100 O2 Delivery Nasal Cannula Nasal Cannula Nasal Cannula Nasal Cannula O2 Flow Rate 2.0 2.0 2.0 2.0 01/10/18 01/10/18 01/10/18 01/10/18 07:00 08:00 08:00 08:00 Temp 97.6 97.6 Pulse 75 70 70 Resp 26 17 B/P (MAP) 124/54 (77) 111/57 111/57 (75) Pulse Ox 100 100 O2 Delivery Nasal Cannula Nasal Cannula Nasal Cannula O2 Flow Rate 2.0 2.0 2.0 01/10/18 01/10/18 01/10/18 01/10/18 09:00 09:00 10:00 11:00 Pulse 70 70 72 74 Resp 25 25 26 B/P (MAP) 111/57 112/47 (68) 117/57 (77) 116/47 (70) Pulse Ox 100 100 100 O2 Delivery Nasal Cannula Nasal Cannula Nasal Cannula O2 Flow Rate 2.0 2.0 2.0 Intake and Output 01/09/18 01/09/18 01/10/18 15:00 23:00 07:00 Intake Total 43.77 ml 1100 ml 679 ml Output Total 633 ml 745 ml 350 ml Balance -589.23 ml 355 ml 329 ml SUZANNA PETERSON MD Jan 10, 2018 16:01
[2018-01-10] MEDS: oxyCODONE/APAP 5/325 1 TAB TABLET PO PRN ×2 (16:35→23:47)
[2018-01-10] MEDS: BUDESONIDE 0.5 MG/2 ML NEBU. NEB SCH (20:00)
[2018-01-10] MEDS: cefTRIAXone IV Push 1 GM VIAL. IVP SCH (20:05)
[2018-01-10] MEDS: ATORVASTATIN CALCIUM 10 MG TABLET. PO SCH (20:47)
[2018-01-11 00:01] VITALS: BP 145/81
[2018-01-11] MEDS: ALBUTEROL SULFATE 2.5 MG/3 ML NEBU. NEB PRN (00:26)
[2018-01-11] MEDS: BUDESONIDE 0.5 MG/2 ML NEBU. NEB SCH (00:26)
[2018-01-11] MEDS ORDERED: PANTOPRAZOLE IV PUSH 40 MG VIAL. IVP ONE (02:30)
[2018-01-11] MEDS ORDERED: DOPamine 400MG/250ML PREMIX 400 MG/250 ML BAG IV ONE (03:00)
[2018-01-11 03:01] LABS: BASO # 0.1 x10^3/uL (0.0-0.2); BASO % 1 % (0-3); EOS % 0 % (0-3); HEMATOCRIT 27.3 % (39.0-53.0); HEMOGLOBIN 7.9 g/dL (13.0-17.5); LYMPH # 4.1 x10^3/uL (1.0-4.8); LYMPH % 32 % (24-48); MEAN CORPUSCULAR HEMOGLOBIN 31 pg (25-35); MEAN CORPUSCULAR HGB CONC 29 g/dL (31-37); MEAN CORPUSCULAR VOLUME 105 fL (79-100); MONO # 0.8 x10^3/uL (0.0-1.1); MONO % 6 % (0-9); NEUT # 7.6 x10^3uL (1.8-7.7); NEUT % 60 % (31-73); PLATELET COUNT 238 x10^3/uL (140-400); RED BLOOD COUNT 2.59 x10^6/uL (4.30-5.70); RED CELL DISTRIBUTION WIDTH 16.1 % (11.5-14.5); WHITE BLOOD COUNT 12.6 x10^3/uL (4.0-11.0)
--- NOTE | 2018-01-11 03:05 | PDOC ---
PROGRESS NOTES Chief Complaint Chief Complaint acute hypoxic resp failure with surgery Postop right inguinal hernia repair with mesh. aortic stenosis, acute on chronic systolic CHF weakness and debilty vasomotor nephropathy on CKD 3, code called early this AM, PT CODED BY DR HILL History of Present Illness History of Present Illness pt and ot out of bed, extubated con tcurrent transfer out of ICU TO [facility], ATE DINNER, IE CLEAR LIQUIDS, FOUND 2.5 HRS AFTER LAST KNOWN WELL, WAS NOT ON TELE MONITOR Gentle IV fluids, Vitals Vitals Vital Signs Date Time Temp Pulse Resp B/P (MAP) Pulse Ox O2 Delivery O2 Flow Rate FiO2 01/11/18 00:30 92 Nasal Cannula 2.0 01/11/18 00:01 98.6 86 16 145/81 (102) 98.6 Physical Exam General: Alert, Oriented X3, Cooperative, No acute distress, Other (PT WITH NO PULSE OR SPONTANEOUS RESP) Heart: Regular rate, Other (1 to 2/6 systolic murmur and 2/6 diastolic murmur) Lungs: Clear Abdomen: Soft, No tenderness Extremities: No clubbing, No edema Skin: No rashes, No breakdown Labs LABS Laboratory Tests Test 01/10/18 04:00 01/10/18 12:51 01/10/18 16:33 01/10/18 21:14 White Blood Count 7.2 x10^3/uL (4.0-11.0) Red Blood Count 3.60 x10^6/uL (4.30-5.70) Hemoglobin 11.2 g/dL (13.0-17.5) Hematocrit 33.2 % (39.0-53.0) Mean Corpuscular Volume 92 fL (79-100) Mean Corpuscular Hemoglobin 31 pg (25-35) Mean Corpuscular Hemoglobin Concent 34 g/dL (31-37) Red Cell Distribution Width 15.1 % (11.5-14.5) Platelet Count 173 x10^3/uL (140-400) Neutrophils (%) (Auto) 76 % (31-73) Lymphocytes (%) (Auto) 7 % (24-48) Monocytes (%) (Auto) 17 % (0-9) Eosinophils (%) (Auto) 0 % (0-3) Basophils (%) (Auto) 0 % (0-3) Neutrophils # (Auto) 5.5 x10^3uL (1.8-7.7) Lymphocytes # (Auto) 0.5 x10^3/uL (1.0-4.8) Monocytes # (Auto) 1.2 x10^3/uL (0.0-1.1) Eosinophils # (Auto) 0.0 x10^3/uL (0.0-0.7) Basophils # (Auto) 0.0 x10^3/uL (0.0-0.2) Sodium Level 147 mmol/L (136-145) Potassium Level 3.8 mmol/L (3.5-5.1) Chloride Level 112 mmol/L (98-107) Carbon Dioxide Level 23 mmol/L (21-32) Anion Gap 12 (6-14) Blood Urea Nitrogen 49 mg/dL (8-26) Creatinine 1.6 mg/dL (0.7-1.3) Estimated GFR (Cockcroft-Gault) 40.9 Glucose Level 102 mg/dL (70-99) Calcium Level 7.9 mg/dL (8.5-10.1) Glucose (Fingerstick) 204 mg/dL (70-99) 220 mg/dL (70-99) 207 mg/dL (70-99) Test 01/11/18 02:45 White Blood Count 12.6 x10^3/uL (4.0-11.0) Red Blood Count 2.59 x10^6/uL (4.30-5.70) Hemoglobin 7.9 g/dL (13.0-17.5) Hematocrit 27.3 % (39.0-53.0) Mean Corpuscular Volume 105 fL (79-100) Mean Corpuscular Hemoglobin 31 pg (25-35) Mean Corpuscular Hemoglobin Concent 29 g/dL (31-37) Red Cell Distribution Width 16.1 % (11.5-14.5) Platelet Count 238 x10^3/uL (140-400) Neutrophils (%) (Auto) 60 % (31-73) Lymphocytes (%) (Auto) 32 % (24-48) Monocytes (%) (Auto) 6 % (0-9) Eosinophils (%) (Auto) 0 % (0-3) Basophils (%) (Auto) 1 % (0-3) Neutrophils # (Auto) 7.6 x10^3uL (1.8-7.7) Lymphocytes # (Auto) 4.1 x10^3/uL (1.0-4.8) Monocytes # (Auto) 0.8 x10^3/uL (0.0-1.1) Eosinophils # (Auto) 0.0 x10^3/uL (0.0-0.7) Basophils # (Auto) 0.1 x10^3/uL (0.0-0.2) Comment Review of Relevant I have reviewed the following items jacob (where applicable) has been applied. Labs Laboratory Tests Test 01/09/18 06:15 01/09/18 08:30 01/09/18 11:30 01/09/18 12:17 White Blood Count 4.6 x10^3/uL (4.0-11.0) Red Blood Count 3.27 x10^6/uL (4.30-5.70) Hemoglobin 10.1 g/dL (13.0-17.5) Hematocrit 29.8 % (39.0-53.0) Mean Corpuscular Volume 91 fL (79-100) Mean Corpuscular Hemoglobin 31 pg (25-35) Mean Corpuscular Hemoglobin Concent 34 g/dL (31-37) Red Cell Distribution Width 14.7 % (11.5-14.5) Platelet Count 150 x10^3/uL (140-400) Neutrophils (%) (Auto) 72 % (31-73) Lymphocytes (%) (Auto) 9 % (24-48) Monocytes (%) (Auto) 19 % (0-9) Eosinophils (%) (Auto) 0 % (0-3) Basophils (%) (Auto) 0 % (0-3) Neutrophils # (Auto) 3.3 x10^3uL (1.8-7.7) Lymphocytes # (Auto) 0.4 x10^3/uL (1.0-4.8) Monocytes # (Auto) 0.9 x10^3/uL (0.0-1.1) Eosinophils # (Auto) 0.0 x10^3/uL (0.0-0.7) Basophils # (Auto) 0.0 x10^3/uL (0.0-0.2) Segmented Neutrophils % 47 % (35-66) Band Neutrophils % 25 % (0-9) Lymphocytes % 8 % (24-48) Atypical Lymphocytes % (Manual) 1 % (0-0) Monocytes % 19 % (0-10) Platelet Estimate Adequate (ADEQUATE) Anisocytosis Slight Ovalocytes Few Siren Cells Few Sodium Level 143 mmol/L (136-145) Potassium Level 4.3 mmol/L (3.5-5.1) Chloride Level 110 mmol/L (98-107) Carbon Dioxide Level 21 mmol/L (21-32) Anion Gap 12 (6-14) Blood Urea Nitrogen 50 mg/dL (8-26) Creatinine 1.7 mg/dL (0.7-1.3) Estimated GFR (Cockcroft-Gault) 38.1 Glucose Level 95 mg/dL (70-99) Calcium Level 8.0 mg/dL (8.5-10.1) O2 Saturation 98 % (92-99) 98 % (92-99) Arterial Blood pH 7.48 (7.35-7.45) 7.36 (7.35-7.45) Arterial Blood pCO2 at Patient Temp 27 mmHg (35-46) 34 mmHg (35-46) Arterial Blood pO2 at Patient Temp 156 mmHg (65-108) 122 mmHg (65-108) Arterial Blood HCO3 20 mmol/L (21-28) 19 mmol/L (21-28) Arterial Blood Base Excess -3 mmol/L (-3-3) -6 mmol/L (-3-3) FiO2 40 40 Glucose (Fingerstick) 115 mg/dL (70-99) Test 01/09/18 17:12 01/09/18 20:18 01/10/18 04:00 01/10/18 12:51 Glucose (Fingerstick) 117 mg/dL (70-99) 121 mg/dL (70-99) 204 mg/dL (70-99) White Blood Count 7.2 x10^3/uL (4.0-11.0) Red Blood Count 3.60 x10^6/uL (4.30-5.70) Hemoglobin 11.2 g/dL (13.0-17.5) Hematocrit 33.2 % (39.0-53.0) Mean Corpuscular Volume 92 fL (79-100) Mean Corpuscular Hemoglobin 31 pg (25-35) Mean Corpuscular Hemoglobin Concent 34 g/dL (31-37) Red Cell Distribution Width 15.1 % (11.5-14.5) Platelet Count 173 x10^3/uL (140-400) Neutrophils (%) (Auto) 76 % (31-73) Lymphocytes (%) (Auto) 7 % (24-48) Monocytes (%) (Auto) 17 % (0-9) Eosinophils (%) (Auto) 0 % (0-3) Basophils (%) (Auto) 0 % (0-3) Neutrophils # (Auto) 5.5 x10^3uL (1.8-7.7) Lymphocytes # (Auto) 0.5 x10^3/uL (1.0-4.8) Monocytes # (Auto) 1.2 x10^3/uL (0.0-1.1) Eosinophils # (Auto) 0.0 x10^3/uL (0.0-0.7) Basophils # (Auto) 0.0 x10^3/uL (0.0-0.2) Sodium Level 147 mmol/L (136-145) Potassium Level 3.8 mmol/L (3.5-5.1) Chloride Level 112 mmol/L (98-107) Carbon Dioxide Level 23 mmol/L (21-32) Anion Gap 12 (6-14) Blood Urea Nitrogen 49 mg/dL (8-26) Creatinine 1.6 mg/dL (0.7-1.3) Estimated GFR (Cockcroft-Gault) 40.9 Glucose Level 102 mg/dL (70-99) Calcium Level 7.9 mg/dL (8.5-10.1) Test 01/10/18 16:33 01/10/18 21:14 01/11/18 02:45 Glucose (Fingerstick) 220 mg/dL (70-99) 207 mg/dL (70-99) White Blood Count 12.6 x10^3/uL (4.0-11.0) Red Blood Count 2.59 x10^6/uL (4.30-5.70) Hemoglobin 7.9 g/dL (13.0-17.5) Hematocrit 27.3 % (39.0-53.0) Mean Corpuscular Volume 105 fL (79-100) Mean Corpuscular Hemoglobin 31 pg (25-35) Mean Corpuscular Hemoglobin Concent 29 g/dL (31-37) Red Cell Distribution Width 16.1 % (11.5-14.5) Platelet Count 238 x10^3/uL (140-400) Neutrophils (%) (Auto) 60 % (31-73) Lymphocytes (%) (Auto) 32 % (24-48) Monocytes (%) (Auto) 6 % (0-9) Eosinophils (%) (Auto) 0 % (0-3) Basophils (%) (Auto) 1 % (0-3) Neutrophils # (Auto) 7.6 x10^3uL (1.8-7.7) Lymphocytes # (Auto) 4.1 x10^3/uL (1.0-4.8) Monocytes # (Auto) 0.8 x10^3/uL (0.0-1.1) Eosinophils # (Auto) 0.0 x10^3/uL (0.0-0.7) Basophils # (Auto) 0.1 x10^3/uL (0.0-0.2) Laboratory Tests Test 01/10/18 04:00 01/10/18 12:51 01/10/18 16:33 01/10/18 21:14 White Blood Count 7.2 x10^3/uL (4.0-11.0) Red Blood Count 3.60 x10^6/uL (4.30-5.70) Hemoglobin 11.2 g/dL (13.0-17.5) Hematocrit 33.2 % (39.0-53.0) Mean Corpuscular Volume 92 fL (79-100) Mean Corpuscular Hemoglobin 31 pg (25-35) Mean Corpuscular Hemoglobin Concent 34 g/dL (31-37) Red Cell Distribution Width 15.1 % (11.5-14.5) Platelet Count 173 x10^3/uL (140-400) Neutrophils (%) (Auto) 76 % (31-73) Lymphocytes (%) (Auto) 7 % (24-48) Monocytes (%) (Auto) 17 % (0-9) Eosinophils (%) (Auto) 0 % (0-3) Basophils (%) (Auto) 0 % (0-3) Neutrophils # (Auto) 5.5 x10^3uL (1.8-7.7) Lymphocytes # (Auto) 0.5 x10^3/uL (1.0-4.8) Monocytes # (Auto) 1.2 x10^3/uL (0.0-1.1) Eosinophils # (Auto) 0.0 x10^3/uL (0.0-0.7) Basophils # (Auto) 0.0 x10^3/uL (0.0-0.2) Sodium Level 147 mmol/L (136-145) Potassium Level 3.8 mmol/L (3.5-5.1) Chloride Level 112 mmol/L (98-107) Carbon Dioxide Level 23 mmol/L (21-32) Anion Gap 12 (6-14) Blood Urea Nitrogen 49 mg/dL (8-26) Creatinine 1.6 mg/dL (0.7-1.3) Estimated GFR (Cockcroft-Gault) 40.9 Glucose Level 102 mg/dL (70-99) Calcium Level 7.9 mg/dL (8.5-10.1) Glucose (Fingerstick) 204 mg/dL (70-99) 220 mg/dL (70-99) 207 mg/dL (70-99) Test 01/11/18 02:45 White Blood Count 12.6 x10^3/uL (4.0-11.0) Red Blood Count 2.59 x10^6/uL (4.30-5.70) Hemoglobin 7.9 g/dL (13.0-17.5) Hematocrit 27.3 % (39.0-53.0) Mean Corpuscular Volume 105 fL (79-100) Mean Corpuscular Hemoglobin 31 pg (25-35) Mean Corpuscular Hemoglobin Concent 29 g/dL (31-37) Red Cell Distribution Width 16.1 % (11.5-14.5) Platelet Count 238 x10^3/uL (140-400) Neutrophils (%) (Auto) 60 % (31-73) Lymphocytes (%) (Auto) 32 % (24-48) Monocytes (%) (Auto) 6 % (0-9) Eosinophils (%) (Auto) 0 % (0-3) Basophils (%) (Auto) 1 % (0-3) Neutrophils # (Auto) 7.6 x10^3uL (1.8-7.7) Lymphocytes # (Auto) 4.1 x10^3/uL (1.0-4.8) Monocytes # (Auto) 0.8 x10^3/uL (0.0-1.1) Eosinophils # (Auto) 0.0 x10^3/uL (0.0-0.7) Basophils # (Auto) 0.1 x10^3/uL (0.0-0.2) Medications Current Medications Sodium Chloride 1,000 ml @ 50 mls/hr Q20H IV Last administered on 01/10/18 16: 36; Start 01/07/18 at 18:30 Oxycodone/ Acetaminophen (Percocet 5/325) 1 tab PRN Q4HRS PRN PO MODERATE PAIN Last administered on 01/10/18at 23:47; Start 01/07/18 at 18:30 Oxycodone/ Acetaminophen (Percocet 5/325) 2 tab PRN Q6HRS PRN PO SEVERE PAIN Last administered on 01/07/18at 23:00; Start 01/07/18 at 18:30 Clonidine HCl (Catapres) 0.1 mg PRN Q1HR PRN PO HYPERTENSION, SEE COMMENTS; Start 01/07/18 at 18:30 Fentanyl Citrate (Fentanyl 2ml Vial) 50 mcg PRN Q2HR PRN IV SEVERE PAIN Last administered on 01/08/18 19:42; Start 01/07/18 at 18:30 Ondansetron HCl (Zofran) 4 mg PRN Q6HRS PRN IV NAUSEA/VOMITING Last administered on 01/08/18at 10:04; Start 01/07/18 at 18:30; Stop 01/08/18 at 15:25; Status DC Acetaminophen (Tylenol) 650 mg PRN Q6HRS PRN PO MILD PAIN / TEMP; Start at 18:30 Cefazolin Sodium/ Dextrose 50 ml @ 100 mls/hr 1X PREOP IV Last administered on 01/08/18at 12:24; Start 01/08/18 at 08:00; Stop 01/08/18 at 18:00; Status DC Morphine Sulfate (Morphine Sulfate) 2 mg PRN Q2HR PRN IV PAIN MODERATE TO SEVERE Last administered on 01/08/18at 14:53; Start 01/07/18 at 20:00; Stop at 15:24; Status DC Sodium Polystyrene Sulfonate (Kayexalate) 15 gm 1X ONCE PO Last administered on 01/07/18at 20:48; Start 01/07/18 at 20:15; Stop 01/07/18 at 20:16; Status DC Carvedilol (Coreg) 12.5 mg BIDWMEALS PO Last administered on 01/08/18at 08:21; Start 01/07/18 at 21:00 Furosemide (Lasix) 40 mg DAILY PO Last administered on 01/10/18at 11:05; Start at 09:00 Nitroglycerin (Nitrostat) 0.4 mg PRN Q5MIN PRN SL CHEST PAIN Last administered on 01/10/18at 18:20; Start 01/07/18 at 20:30 Isosorbide Mononitrate (Imdur) 240 mg DAILY PO ; Start 01/08/18 at 09:00 Atorvastatin Calcium (Lipitor) 10 mg QHS PO Last administered on 01/10/18at 20:47 ; Start 01/07/18 at 21:00 Insulin Human Lispro (HumaLOG) 0-9 UNITS TIDWMEALS SQ Last administered on at 16:37; Start 01/08/18 at 08:00 Dextrose (Dextrose 50%-Water Syringe) 12.5 gm PRN Q15MIN PRN IV SEE COMMENTS; Start 01/07/18 at 20:30 Bupivacaine HCl/ Epinephrine Bitart (Marcaine-Epi 0.5%-[id number]) 50 ml STK-MED ONCE .ROUTE Last administered on 01/08/18at 11:56; Start 01/08/18 at 06:22; Stop 01/08/18 at 07:22; Status DC Fentanyl Citrate (Fentanyl 2ml Vial) 100 mcg STK-MED ONCE .ROUTE ; Start at 07:34; Stop 01/08/18 at 07:35; Status DC Rocuronium [place] (Zemuron) 50 mg STK-MED ONCE .ROUTE ; Start 01/08/18 at 07:34 ; Stop 01/08/18 at 07:35; Status DC Propofol 20 ml @ As Directed STK-MED ONCE IV ; Start 01/08/18 at 07:37; Stop 01/08 at 07:38; Status DC Dexamethasone Sodium Phosphate (Decadron) 20 mg STK-MED ONCE .ROUTE ; Start 01/08 at 07:37; Stop 01/08/18 at 07:38; Status DC Ondansetron HCl (Zofran) 4 mg STK-MED ONCE .ROUTE ; Start 01/08/18 at 07:37; Stop 01/08/18 at 07:38; Status DC Ondansetron HCl (Zofran) 4 mg PRN Q6HRS PRN IV NAUSEA/VOMITING; Start 01/08/18 at 08:15; Stop 01/08/18 at 15:21; Status DC Fentanyl Citrate (Fentanyl 2ml Vial) 25 mcg PRN Q5MIN PRN IV MILD PAIN; Start 01/08/18 at 08:15; Stop 01/08/18 at 15:21; Status DC Fentanyl Citrate (Fentanyl 2ml Vial) 50 mcg PRN Q5MIN PRN IV MODERATE TO SEVERE PAIN; Start 01/08/18 at 08:15; Stop 01/08/18 at 15:21; Status DC Morphine Sulfate (Morphine Sulfate) 1 mg PRN Q10MIN PRN IV SEVERE PAIN; Start 01/08/18 at 08:15; Stop 01/08/18 at 15:21; Status DC Ringer's Solution 1,000 ml @ 30 mls/hr Q24H IV ; Start 01/08/18 at 08:01; Stop 01/08/18 at 15:22; Status DC Lidocaine HCl (Xylocaine-Mpf 1% 2ml Vial) 2 ml 1X PRN PRN ID IV START; Start at 08:15; Stop 01/08/18 at 15:22; Status DC Hydromorphone HCl (Dilaudid) 0.5 mg PRN Q10MIN PRN IV SEV PAIN, Second choice; Start 01/08/18 at 08:15; Stop 01/08/18 at 15:22; Status DC Prochlorperazine Edisylate (Compazine) 5 mg PACU PRN PRN IV NAUSEA, MRX1; Start 01/08/18 at 08:15; Stop 01/08/18 at 15:22; Status DC Phenylephrine HCl (PHENYLEPHRINE in 0.9% NACL PF) 1 mg STK-MED ONCE IV ; Start 01/08/18 at 11:55; Stop 01/08/18 at 11:56; Status DC Glycopyrrolate (Robinul) 1 mg STK-MED ONCE .ROUTE ; Start 01/08/18 at 12:20; Stop 01/08/18 at 12:21; Status DC Neostigmine Methylsulfate (Neostigmine Methylsulfate) 5 mg STK-MED ONCE .ROUTE ; Start 01/08/18 at 12:20; Stop 01/08/18 at 12:21; Status DC Sevoflurane (Ultane) 60 ml STK-MED ONCE IH ; Start 01/08/18 at 12:30; Stop at 12:31; Status DC Propofol 100 ml @ As Directed STK-MED ONCE IV ; Start 01/08/18 at 12:53; Stop at 12:54; Status DC Albumin Human 500 ml @ 125 mls/hr 1X ONCE IV Last administered on 01/08/18at 13 :39; Start 01/08/18 at 13:15; Stop 01/08/18 at 17:14; Status DC Sodium Chloride 500 ml @ 500 mls/hr 1X ONCE IV ; Start 01/08/18 at 13:15; Stop 01/08/18 at 14:14; Status DC Enoxaparin Sodium (Lovenox 40mg Syringe) 40 mg Q12HR SQ Last administered on 01/09/18at 08:30; Start 01/08/18 at 21:00; Stop 01/09/18 at 10:10; Status DC Sodium Chloride (Normal Saline Flush) 3 ml QSHIFT PRN IV AFTER MEDS AND BLOOD DRAWS; Start 01/08/18 at 13:30 Ringer's Solution 1,000 ml @ 100 mls/hr Q10H IV ; Start 01/08/18 at 13:19; Stop 01/08/18 at 18:02; Status DC Morphine Sulfate (Morphine Sulfate) 1 mg PRN Q1HR PRN IV PAIN mild; Start at 13:30 Ondansetron HCl (Zofran) 4 mg PRN Q6HRS PRN IV NAUESA, 1ST CHOICE Last administered on 01/10/18at 20:48; Start 01/08/18 at 13:30 Propofol 100 ml @ 1.238 mls/ hr CONT PRN IV SEE I/O RECORD Last administered on 01/09/18at 06:22; Start 01/08/18 at 12:45 Norepinephrine Bitartrate 250 ml @ 1.875 mls/ hr CONT PRN IV SEE I/O RECORD; Start 01/08/18 at 19:15 Enoxaparin Sodium (Lovenox 40mg Syringe) 40 mg DAILY SQ Last administered on 01/10/18at 10:50; Start 01/10/18 at 09:00 Furosemide (Lasix) 40 mg 1X ONCE IVP Last administered on 01/09/18at 13:15; Start 01/09/18 at 13:15; Stop 01/09/18 at 13:16; Status DC Albuterol Sulfate (Ventolin Neb Soln) 2.5 mg PRN Q6HRS PRN NEB SHORTNESS OF BREATH Last administered on 01/11/18at 00:26; Start 01/09/18 at 17:45 Ceftriaxone Sodium 1 gm/ Dextrose 50 ml @ 100 mls/hr Q24H IV ; Start 01/09/18 at 19:45; Status UNV Prednisone (Prednisone) 30 mg DAILY PO Last administered on 01/10/18at 11:05; Start 01/09/18 at 19:45 Ceftriaxone Sodium (Rocephin) 1 gm Q24H IVP Last administered on 01/10/18at 20:05 ; Start 01/09/18 at 20:00 Guaifenesin (Robitussin) 200 mg PRN QID PRN PO COUGH; Start 01/10/18 at 11:15 Budesonide (Pulmicort) 0.5 mg RTBID NEB Last administered on 01/11/18at 00:26; Start 01/10/18 at 12:00 Pantoprazole Sodium (PROTONIX VIAL for IV PUSH) 80 mg 1X ONCE IVP ; Start at 02:30; Stop 01/11/18 at 02:31; Status DC Dopamine HCl/ Dextrose 250 ml @ As Directed STK-MED ONCE IV ; Start 01/11/18 at 02:37; Stop 01/11/18 at 02:38; Status DC Active Scripts Active Reported Isosorbide Mononitrate Er (Isosorbide Mononitrate) 120 Mg Tab.er.24h 2 Tab PO DAILY NITROGLYCERIN SubLingual (Nitroglycerin) 0.4 Mg Tab.subl 0.4 Mg SL PRN Q5MIN PRN Lisinopril 5 Mg Tablet 0.5 Tab PO DAILY Lasix (Furosemide) 40 Mg Tablet 1 Tab PO DAILY Carvedilol 12.5 Mg Tablet 1 Tab PO BID Clopidogrel (Clopidogrel Bisulfate) 75 Mg Tablet 1 Tab PO DAILY Pravastatin Sodium 40 Mg Tablet 1 Tab PO QHS Metformin Hcl 1,000 Mg Tablet 1,000 Mg PO BIDWMEALS Glimepiride 2 Mg Tablet 1 Tab PO BID Aspirin Ec (Aspirin) 81 Mg Tablet.dr 1 Tab PO DAILY NITROGLYCERIN SubLingual (Nitroglycerin) 0.4 Mg Tab.subl 0.4 Mg SL PRN Q5MIN PRN Isosorbide Mononitrate Er (Isosorbide Mononitrate) 120 Mg Tab.er.24h 120 Mg PO DAILY Carvedilol 25 Mg Tablet 1 Tab PO BID Plavix (Clopidogrel Bisulfate) 75 Mg Tablet 1 Tab PO DAILY Pravastatin Sodium 40 Mg Tablet 1 Tab PO QHS Metformin Hcl 1,000 Mg Tablet 1 Tab PO BID Hydrochlorothiazide Tablet (Hydrochlorothiazide) 12.5 Mg Tablet 25 Mg PO DAILY Glimepiride 2 Mg Tablet 2 Mg PO BID Aspirin 325 Mg Tablet 1 Tab PO DAILY Vitals/I & O Vital Sign - Last 24 Hours 01/10/18 01/10/18 01/10/18 01/10/18 07:00 08:00 08:00 08:00 Temp 97.6 97.6 Pulse 75 70 70 Resp 17 B/P (MAP) 124/54 (77) 111/57 111/57 (75) Pulse Ox 100 100 O2 Delivery Nasal Cannula Nasal Cannula Nasal Cannula O2 Flow Rate 2.0 2.0 2.0 01/10/18 01/10/18 01/10/18 01/10/18 09:00 09:00 10:00 11:00 Pulse 70 70 72 74 Resp 25 25 26 B/P (MAP) 111/57 112/47 (68) 117/57 (77) 116/47 (70) Pulse Ox 100 100 100 O2 Delivery Nasal Cannula Nasal Cannula Nasal Cannula O2 Flow Rate 2.0 2.0 2.0 01/10/18 01/10/18 01/10/18 01/10/18 16:00 16:29 16:35 17:49 Temp 97.3 97.3 Pulse 77 77 Resp 27 B/P (MAP) 116/62 (80) 116/62 Pulse Ox 100 O2 Delivery Nasal Cannula Nasal Cannula Nasal Cannula O2 Flow Rate 2.0 2.0 2.0 01/10/18 01/10/18 01/10/18 01/10/18 18:20 19:00 19:45 23:47 Temp 98.6 98.6 Pulse 85 Resp 27 20 B/P (MAP) 116/92 135/77 (96) Pulse Ox 100 O2 Delivery Nasal Cannula Nasal Cannula Nasal Cannula O2 Flow Rate 2.0 2.0 2.0 01/11/18 01/11/18 01/11/18 00:01 00:26 00:30 Temp 98.6 98.6 Pulse 86 Resp 16 B/P (MAP) 145/81 (102) Pulse Ox 97 92 92 O2 Delivery Nasal Cannula Nasal Cannula Nasal Cannula O2 Flow Rate 2.0 2.0 2.0 Intake and Output 01/10/18 01/10/18 01/11/18 15:00 23:00 07:00 Intake Total 540 ml 733.29 ml 200 ml Output Total 550 ml Balance -10 ml 733.29 ml 200 ml KASIA OBRIEN MD Jan 11, 2018 03:05
--- NOTE | 2018-01-11 03:11 | PDOC3 ---
Discharge Summary Date of Admission: Jan 07, 2018 Date of Discharge: Jan 11, 2018 Follow-Up: Other () Admitting Diagnosis comment: Chief Complaint Chief Complaint acute hypoxic resp failure with surgery Postop right inguinal hernia repair with mesh. aortic stenosis, acute on chronic systolic CHF weakness and debilty vasomotor nephropathy on CKD 3, code called early this AM, PT CODED BY DR HILL History of Present Illness History of Present Illness pt and ot out of bed, extubated con tcurrent transfer out of ICU TO 438, ATE DINNER, IE CLEAR LIQUIDS, FOUND 2.5 HRS AFTER LAST KNOWN WELL, WAS NOT ON TELE MONITOR Gentle IV fluids, Vitals Vitals Vital Signs Date Time Temp Pulse Resp B/P (MAP) Pulse Ox O2 Delivery O2 Flow Rate FiO2 01/11/18 00:30 92 Nasal Cannula 2.0 01/11/18 00:01 98.6 86 16 145/81 (102) 98.6 Physical Exam (PT WITH NO PULSE OR SPONTANEOUS RESP) WAS NOT ON TELE MONITOR AFTER TRANSFER TO FLOOR BY NURSES HX Brief Hospital Course Mr. Washburn is a 87 old [sex] who presented with [ ] CONDITION AT DISCHARGE: / Discharge Medications Current Medications Sodium Chloride 1,000 ml @ 50 mls/hr Q20H IV Last administered on 01/10/18 16: 36; Start 01/07/18 at 18:30 Oxycodone/ Acetaminophen (Percocet 5/325) 1 tab PRN Q4HRS PRN PO MODERATE PAIN Last administered on 01/10/18at 23:47; Start 01/07/18 at 18:30 Oxycodone/ Acetaminophen (Percocet 5/325) 2 tab PRN Q6HRS PRN PO SEVERE PAIN Last administered on 01/07/18at 23:00; Start 01/07/18 at 18:30 Clonidine HCl (Catapres) 0.1 mg PRN Q1HR PRN PO HYPERTENSION, SEE COMMENTS; Start 01/07/18 at 18:30 Fentanyl Citrate (Fentanyl 2ml Vial) 50 mcg PRN Q2HR PRN IV SEVERE PAIN Last administered on 01/08/18 19:42; Start 01/07/18 at 18:30 Ondansetron HCl (Zofran) 4 mg PRN Q6HRS PRN IV NAUSEA/VOMITING Last administered on 01/08/18at 10:04; Start 01/07/18 at 18:30; Stop 01/08/18 at 15:25; Status DC Acetaminophen (Tylenol) 650 mg PRN Q6HRS PRN PO MILD PAIN / TEMP; Start at 18:30 Cefazolin Sodium/ Dextrose 50 ml @ 100 mls/hr 1X PREOP IV Last administered on 01/08/18at 12:24; Start 01/08/18 at 08:00; Stop 01/08/18 at 18:00; Status DC Morphine Sulfate (Morphine Sulfate) 2 mg PRN Q2HR PRN IV PAIN MODERATE TO SEVERE Last administered on 01/08/18at 14:53; Start 01/07/18 at 20:00; Stop at 15:24; Status DC Sodium Polystyrene Sulfonate (Kayexalate) 15 gm 1X ONCE PO Last administered on 01/07/18at 20:48; Start 01/07/18 at 20:15; Stop 01/07/18 at 20:16; Status DC Carvedilol (Coreg) 12.5 mg BIDWMEALS PO Last administered on 01/08/18at 08:21; Start 01/07/18 at 21:00 Furosemide (Lasix) 40 mg DAILY PO Last administered on 01/10/18at 11:05; Start at 09:00 Nitroglycerin (Nitrostat) 0.4 mg PRN Q5MIN PRN SL CHEST PAIN Last administered on 01/10/18at 18:20; Start 01/07/18 at 20:30 Isosorbide Mononitrate (Imdur) 240 mg DAILY PO ; Start 01/08/18 at 09:00 Atorvastatin Calcium (Lipitor) 10 mg QHS PO Last administered on 01/10/18at 20:47 ; Start 01/07/18 at 21:00 Insulin Human Lispro (HumaLOG) 0-9 UNITS TIDWMEALS SQ Last administered on at 16:37; Start 01/08/18 at 08:00 Dextrose (Dextrose 50%-Water Syringe) 12.5 gm PRN Q15MIN PRN IV SEE COMMENTS; Start 01/07/18 at 20:30 Bupivacaine HCl/ Epinephrine Bitart (Marcaine-Epi 0.5%-1:[id number]) 50 ml STK-MED ONCE .ROUTE Last administered on 01/08/18at 11:56; Start 01/08/18 at 06:22; Stop 01/08/18 at 07:22; Status DC Fentanyl Citrate (Fentanyl 2ml Vial) 100 mcg STK-MED ONCE .ROUTE ; Start at 07:34; Stop 01/08/18 at 07:35; Status DC Rocuronium [place] (Zemuron) 50 mg STK-MED ONCE .ROUTE ; Start 01/08/18 at 07:34 ; Stop 01/08/18 at 07:35; Status DC Propofol 20 ml @ As Directed STK-MED ONCE IV ; Start 01/08/18 at 07:37; Stop 01/08 at 07:38; Status DC Dexamethasone Sodium Phosphate (Decadron) 20 mg STK-MED ONCE .ROUTE ; Start 01/08 at 07:37; Stop 01/08/18 at 07:38; Status DC Ondansetron HCl (Zofran) 4 mg STK-MED ONCE .ROUTE ; Start 01/08/18 at 07:37; Stop 01/08/18 at 07:38; Status DC Ondansetron HCl (Zofran) 4 mg PRN Q6HRS PRN IV NAUSEA/VOMITING; Start 01/08/18 at 08:15; Stop 01/08/18 at 15:21; Status DC Fentanyl Citrate (Fentanyl 2ml Vial) 25 mcg PRN Q5MIN PRN IV MILD PAIN; Start 01/08/18 at 08:15; Stop 01/08/18 at 15:21; Status DC Fentanyl Citrate (Fentanyl 2ml Vial) 50 mcg PRN Q5MIN PRN IV MODERATE TO SEVERE PAIN; Start 01/08/18 at 08:15; Stop 01/08/18 at 15:21; Status DC Morphine Sulfate (Morphine Sulfate) 1 mg PRN Q10MIN PRN IV SEVERE PAIN; Start 01/08/18 at 08:15; Stop 01/08/18 at 15:21; Status DC Ringer's Solution 1,000 ml @ 30 mls/hr Q24H IV ; Start 01/08/18 at 08:01; Stop 01/08/18 at 15:22; Status DC Lidocaine HCl (Xylocaine-Mpf 1% 2ml Vial) 2 ml 1X PRN PRN ID IV START; Start at 08:15; Stop 01/08/18 at 15:22; Status DC Hydromorphone HCl (Dilaudid) 0.5 mg PRN Q10MIN PRN IV SEV PAIN, Second choice; Start 01/08/18 at 08:15; Stop 01/08/18 at 15:22; Status DC Prochlorperazine Edisylate (Compazine) 5 mg PACU PRN PRN IV NAUSEA, MRX1; Start 01/08/18 at 08:15; Stop 01/08/18 at 15:22; Status DC Phenylephrine HCl (PHENYLEPHRINE in 0.9% NACL PF) 1 mg STK-MED ONCE IV ; Start 01/08/18 at 11:55; Stop 01/08/18 at 11:56; Status DC Glycopyrrolate (Robinul) 1 mg STK-MED ONCE .ROUTE ; Start 01/08/18 at 12:20; Stop 01/08/18 at 12:21; Status DC Neostigmine Methylsulfate (Neostigmine Methylsulfate) 5 mg STK-MED ONCE .ROUTE ; Start 01/08/18 at 12:20; Stop 01/08/18 at 12:21; Status DC Sevoflurane (Ultane) 60 ml STK-MED ONCE IH ; Start 01/08/18 at 12:30; Stop at 12:31; Status DC Propofol 100 ml @ As Directed STK-MED ONCE IV ; Start 01/08/18 at 12:53; Stop at 12:54; Status DC Albumin Human 500 ml @ 125 mls/hr 1X ONCE IV Last administered on 01/08/18at 13 :39; Start 01/08/18 at 13:15; Stop 01/08/18 at 17:14; Status DC Sodium Chloride 500 ml @ 500 mls/hr 1X ONCE IV ; Start 01/08/18 at 13:15; Stop 01/08/18 at 14:14; Status DC Enoxaparin Sodium (Lovenox 40mg Syringe) 40 mg Q12HR SQ Last administered on 01/09/18at 08:30; Start 01/08/18 at 21:00; Stop 01/09/18 at 10:10; Status DC Sodium Chloride (Normal Saline Flush) 3 ml QSHIFT PRN IV AFTER MEDS AND BLOOD DRAWS; Start 01/08/18 at 13:30 Ringer's Solution 1,000 ml @ 100 mls/hr Q10H IV ; Start 01/08/18 at 13:19; Stop 01/08/18 at 18:02; Status DC Morphine Sulfate (Morphine Sulfate) 1 mg PRN Q1HR PRN IV PAIN mild; Start at 13:30 Ondansetron HCl (Zofran) 4 mg PRN Q6HRS PRN IV NAUESA, 1ST CHOICE Last administered on 01/10/18at 20:48; Start 01/08/18 at 13:30 Propofol 100 ml @ 1.238 mls/ hr CONT PRN IV SEE I/O RECORD Last administered on 01/09/18at 06:22; Start 01/08/18 at 12:45 Norepinephrine Bitartrate 250 ml @ 1.875 mls/ hr CONT PRN IV SEE I/O RECORD; Start 01/08/18 at 19:15 Enoxaparin Sodium (Lovenox 40mg Syringe) 40 mg DAILY SQ Last administered on 01/10/18at 10:50; Start 01/10/18 at 09:00 Furosemide (Lasix) 40 mg 1X ONCE IVP Last administered on 01/09/18at 13:15; Start 01/09/18 at 13:15; Stop 01/09/18 at 13:16; Status DC Albuterol Sulfate (Ventolin Neb Soln) 2.5 mg PRN Q6HRS PRN NEB SHORTNESS OF BREATH Last administered on 01/11/18at 00:26; Start 01/09/18 at 17:45 Ceftriaxone Sodium 1 gm/ Dextrose 50 ml @ 100 mls/hr Q24H IV ; Start 01/09/18 at 19:45; Status UNV Prednisone (Prednisone) 30 mg DAILY PO Last administered on 01/10/18at 11:05; Start 01/09/18 at 19:45 Ceftriaxone Sodium (Rocephin) 1 gm Q24H IVP Last administered on 01/10/18at 20:05 ; Start 01/09/18 at 20:00 Guaifenesin (Robitussin) 200 mg PRN QID PRN PO COUGH; Start 01/10/18 at 11:15 Budesonide (Pulmicort) 0.5 mg RTBID NEB Last administered on 01/11/18at 00:26; Start 01/10/18 at 12:00 Pantoprazole Sodium (PROTONIX VIAL for IV PUSH) 80 mg 1X ONCE IVP ; Start at 02:30; Stop 01/11/18 at 02:31; Status DC Dopamine HCl/ Dextrose 250 ml @ As Directed STK-MED ONCE IV ; Start 01/11/18 at 02:37; Stop 01/11/18 at 02:38; Status DC Active Scripts Active Reported Isosorbide Mononitrate Er (Isosorbide Mononitrate) 120 Mg Tab.er.24h 2 Tab PO DAILY NITROGLYCERIN SubLingual (Nitroglycerin) 0.4 Mg Tab.subl 0.4 Mg SL PRN Q5MIN PRN Lisinopril 5 Mg Tablet 0.5 Tab PO DAILY Lasix (Furosemide) 40 Mg Tablet 1 Tab PO DAILY Carvedilol 12.5 Mg Tablet 1 Tab PO BID Clopidogrel (Clopidogrel Bisulfate) 75 Mg Tablet 1 Tab PO DAILY Pravastatin Sodium 40 Mg Tablet 1 Tab PO QHS Metformin Hcl 1,000 Mg Tablet 1,000 Mg PO BIDWMEALS Glimepiride 2 Mg Tablet 1 Tab PO BID Aspirin Ec (Aspirin) 81 Mg Tablet.dr 1 Tab PO DAILY NITROGLYCERIN SubLingual (Nitroglycerin) 0.4 Mg Tab.subl 0.4 Mg SL PRN Q5MIN PRN Isosorbide Mononitrate Er (Isosorbide Mononitrate) 120 Mg Tab.er.24h 120 Mg PO DAILY Carvedilol 25 Mg Tablet 1 Tab PO BID Plavix (Clopidogrel Bisulfate) 75 Mg Tablet 1 Tab PO DAILY Pravastatin Sodium 40 Mg Tablet 1 Tab PO QHS Metformin Hcl 1,000 Mg Tablet 1 Tab PO BID Hydrochlorothiazide Tablet (Hydrochlorothiazide) 12.5 Mg Tablet 25 Mg PO DAILY Glimepiride 2 Mg Tablet 2 Mg PO BID Aspirin 325 Mg Tablet 1 Tab PO DAILY Vital Signs Vital Signs Date Time Temp Pulse Resp B/P (MAP) Pulse Ox O2 Delivery O2 Flow Rate FiO2 01/11/18 00:30 92 Nasal Cannula 2.0 01/11/18 00:01 98.6 86 16 145/81 (102) 98.6 Labs Laboratory Tests Test 01/09/18 06:15 01/09/18 08:30 01/09/18 11:30 01/09/18 12:17 White Blood Count 4.6 x10^3/uL (4.0-11.0) Red Blood Count 3.27 x10^6/uL (4.30-5.70) Hemoglobin 10.1 g/dL (13.0-17.5) Hematocrit 29.8 % (39.0-53.0) Mean Corpuscular Volume 91 fL (79-100) Mean Corpuscular Hemoglobin 31 pg (25-35) Mean Corpuscular Hemoglobin Concent 34 g/dL (31-37) Red Cell Distribution Width 14.7 % (11.5-14.5) Platelet Count 150 x10^3/uL (140-400) Neutrophils (%) (Auto) 72 % (31-73) Lymphocytes (%) (Auto) 9 % (24-48) Monocytes (%) (Auto) 19 % (0-9) Eosinophils (%) (Auto) 0 % (0-3) Basophils (%) (Auto) 0 % (0-3) Neutrophils # (Auto) 3.3 x10^3uL (1.8-7.7) Lymphocytes # (Auto) 0.4 x10^3/uL (1.0-4.8) Monocytes # (Auto) 0.9 x10^3/uL (0.0-1.1) Eosinophils # (Auto) 0.0 x10^3/uL (0.0-0.7) Basophils # (Auto) 0.0 x10^3/uL (0.0-0.2) Segmented Neutrophils % 47 % (35-66) Band Neutrophils % 25 % (0-9) Lymphocytes % 8 % (24-48) Atypical Lymphocytes % (Manual) 1 % (0-0) Monocytes % 19 % (0-10) Platelet Estimate Adequate (ADEQUATE) Anisocytosis Slight Ovalocytes Few Adriana Cells Few Sodium Level 143 mmol/L (136-145) Potassium Level 4.3 mmol/L (3.5-5.1) Chloride Level 110 mmol/L (98-107) Carbon Dioxide Level 21 mmol/L (21-32) Anion Gap 12 (6-14) Blood Urea Nitrogen 50 mg/dL (8-26) Creatinine 1.7 mg/dL (0.7-1.3) Estimated GFR (Cockcroft-Gault) 38.1 Glucose Level 95 mg/dL (70-99) Calcium Level 8.0 mg/dL (8.5-10.1) O2 Saturation 98 % (92-99) 98 % (92-99) Arterial Blood pH 7.48 (7.35-7.45) 7.36 (7.35-7.45) Arterial Blood pCO2 at Patient Temp 27 mmHg (35-46) 34 mmHg (35-46) Arterial Blood pO2 at Patient Temp 156 mmHg (65-108) 122 mmHg (65-108) Arterial Blood HCO3 20 mmol/L (21-28) 19 mmol/L (21-28) Arterial Blood Base Excess -3 mmol/L (-3-3) -6 mmol/L (-3-3) FiO2 40 40 Glucose (Fingerstick) 115 mg/dL (70-99) Test 01/09/18 17:12 01/09/18 20:18 01/10/18 04:00 01/10/18 12:51 Glucose (Fingerstick) 117 mg/dL (70-99) 121 mg/dL (70-99) 204 mg/dL (70-99) White Blood Count 7.2 x10^3/uL (4.0-11.0) Red Blood Count 3.60 x10^6/uL (4.30-5.70) Hemoglobin 11.2 g/dL (13.0-17.5) Hematocrit 33.2 % (39.0-53.0) Mean Corpuscular Volume 92 fL (79-100) Mean Corpuscular Hemoglobin 31 pg (25-35) Mean Corpuscular Hemoglobin Concent 34 g/dL (31-37) Red Cell Distribution Width 15.1 % (11.5-14.5) Platelet Count 173 x10^3/uL (140-400) Neutrophils (%) (Auto) 76 % (31-73) Lymphocytes (%) (Auto) 7 % (24-48) Monocytes (%) (Auto) 17 % (0-9) Eosinophils (%) (Auto) 0 % (0-3) Basophils (%) (Auto) 0 % (0-3) Neutrophils # (Auto) 5.5 x10^3uL (1.8-7.7) Lymphocytes # (Auto) 0.5 x10^3/uL (1.0-4.8) Monocytes # (Auto) 1.2 x10^3/uL (0.0-1.1) Eosinophils # (Auto) 0.0 x10^3/uL (0.0-0.7) Basophils # (Auto) 0.0 x10^3/uL (0.0-0.2) Sodium Level 147 mmol/L (136-145) Potassium Level 3.8 mmol/L (3.5-5.1) Chloride Level 112 mmol/L (98-107) Carbon Dioxide Level 23 mmol/L (21-32) Anion Gap 12 (6-14) Blood Urea Nitrogen 49 mg/dL (8-26) Creatinine 1.6 mg/dL (0.7-1.3) Estimated GFR (Cockcroft-Gault) 40.9 Glucose Level 102 mg/dL (70-99) Calcium Level 7.9 mg/dL (8.5-10.1) Test 01/10/18 16:33 01/10/18 21:14 01/11/18 02:45 Glucose (Fingerstick) 220 mg/dL (70-99) 207 mg/dL (70-99) White Blood Count 12.6 x10^3/uL (4.0-11.0) Red Blood Count 2.59 x10^6/uL (4.30-5.70) Hemoglobin 7.9 g/dL (13.0-17.5) Hematocrit 27.3 % (39.0-53.0) Mean Corpuscular Volume 105 fL (79-100) Mean Corpuscular Hemoglobin 31 pg (25-35) Mean Corpuscular Hemoglobin Concent 29 g/dL (31-37) Red Cell Distribution Width 16.1 % (11.5-14.5) Platelet Count 238 x10^3/uL (140-400) Neutrophils (%) (Auto) 60 % (31-73) Lymphocytes (%) (Auto) 32 % (24-48) Monocytes (%) (Auto) 6 % (0-9) Eosinophils (%) (Auto) 0 % (0-3) Basophils (%) (Auto) 1 % (0-3) Neutrophils # (Auto) 7.6 x10^3uL (1.8-7.7) Lymphocytes # (Auto) 4.1 x10^3/uL (1.0-4.8) Monocytes # (Auto) 0.8 x10^3/uL (0.0-1.1) Eosinophils # (Auto) 0.0 x10^3/uL (0.0-0.7) Basophils # (Auto) 0.1 x10^3/uL (0.0-0.2) Laboratory Tests Test 01/10/18 04:00 01/10/18 12:51 01/10/18 16:33 01/10/18 21:14 White Blood Count 7.2 x10^3/uL (4.0-11.0) Red Blood Count 3.60 x10^6/uL (4.30-5.70) Hemoglobin 11.2 g/dL (13.0-17.5) Hematocrit 33.2 % (39.0-53.0) Mean Corpuscular Volume 92 fL (79-100) Mean Corpuscular Hemoglobin 31 pg (25-35) Mean Corpuscular Hemoglobin Concent 34 g/dL (31-37) Red Cell Distribution Width 15.1 % (11.5-14.5) Platelet Count 173 x10^3/uL (140-400) Neutrophils (%) (Auto) 76 % (31-73) Lymphocytes (%) (Auto) 7 % (24-48) Monocytes (%) (Auto) 17 % (0-9) Eosinophils (%) (Auto) 0 % (0-3) Basophils (%) (Auto) 0 % (0-3) Neutrophils # (Auto) 5.5 x10^3uL (1.8-7.7) Lymphocytes # (Auto) 0.5 x10^3/uL (1.0-4.8) Monocytes # (Auto) 1.2 x10^3/uL (0.0-1.1) Eosinophils # (Auto) 0.0 x10^3/uL (0.0-0.7) Basophils # (Auto) 0.0 x10^3/uL (0.0-0.2) Sodium Level 147 mmol/L (136-145) Potassium Level 3.8 mmol/L (3.5-5.1) Chloride Level 112 mmol/L (98-107) Carbon Dioxide Level 23 mmol/L (21-32) Anion Gap 12 (6-14) Blood Urea Nitrogen 49 mg/dL (8-26) Creatinine 1.6 mg/dL (0.7-1.3) Estimated GFR (Cockcroft-Gault) 40.9 Glucose Level 102 mg/dL (70-99) Calcium Level 7.9 mg/dL (8.5-10.1) Glucose (Fingerstick) 204 mg/dL (70-99) 220 mg/dL (70-99) 207 mg/dL (70-99) Test 01/11/18 02:45 White Blood Count 12.6 x10^3/uL (4.0-11.0) Red Blood Count 2.59 x10^6/uL (4.30-5.70) Hemoglobin 7.9 g/dL (13.0-17.5) Hematocrit 27.3 % (39.0-53.0) Mean Corpuscular Volume 105 fL (79-100) Mean Corpuscular Hemoglobin 31 pg (25-35) Mean Corpuscular Hemoglobin Concent 29 g/dL (31-37) Red Cell Distribution Width 16.1 % (11.5-14.5) Platelet Count 238 x10^3/uL (140-400) Neutrophils (%) (Auto) 60 % (31-73) Lymphocytes (%) (Auto) 32 % (24-48) Monocytes (%) (Auto) 6 % (0-9) Eosinophils (%) (Auto) 0 % (0-3) Basophils (%) (Auto) 1 % (0-3) Neutrophils # (Auto) 7.6 x10^3uL (1.8-7.7) Lymphocytes # (Auto) 4.1 x10^3/uL (1.0-4.8) Monocytes # (Auto) 0.8 x10^3/uL (0.0-1.1) Eosinophils # (Auto) 0.0 x10^3/uL (0.0-0.7) Basophils # (Auto) 0.1 x10^3/uL (0.0-0.2) Allergies Allergies Coded Allergies Type Severity Reaction Last Updated Verified niacin Allergy Intermediate 01/09/18 No Disposition/Orders: Patient Instructions D/C PAPERWORK AND TIME 40 MIN FULBRIGHT,KASIA W MD Jan 11, 2018 03:11
--- NOTE | 2018-01-12 10:31 | PATHOLOGY ---
[facility] Accession Number: [id number] . 01 Material submitted: . BIOPSY HERNIA SAC . 01 Clinical history: . Right inguinal hernia. . 02 Diagnosis: Segment of focal mesothelial-lined fibromembranous and fibroadipose tissue, right inguinal hernia repair: - Hernia sac. (JPM/db; 01/11/18) LBQ/01/11/2018 . 02 Electronically signed: . Rajesh Mathew MD, Pathologist NPI- [id number] . 01 Gross description: . Received in formalin labeled "Nat Culver., Keith, hernia sac" is a 7.5 x 5.5 x 0.8 cm portion of pink-leon membranous soft tissue. The specimen is sectioned to reveal no tumor nodules or other abnormalities. Mixing Tank Operator sections are submitted in cassette A1. [place] [place] SYC/SYC . 02 Pathologist provided ICD-10: K40.90 . 02 CPT . 785615 Performed at: 01 [facility] [address], [place] [id number] MD Sonu Olvera MD Phone: [phone] Performed at: 02 [facility] [address] [place], [place] [id number] MD Rajesh Mathew MD Phone: [phone]
== END 2018-01-11 07:00 | disposition expired | DRG 350 ==
LOC: 4 NORTH 17:50 → 1 WEST ICU 01-08 13:10 → 4 NORTH 01-10 19:18
PROVIDERS: ADMIT Internal Medicine; ATTEND Internal Medicine
PROC: 0YU50JZ Supplement Right Inguinal Region with Synthetic Substitute, Open Approach (ICD-10-PCS; principal; 2018-01-07)
PROC: 30233N1 Transfusion of Nonautologous Red Blood Cells into Peripheral Vein, Percutaneous Approach (ICD-10-PCS; 2018-01-07)
PROC: 0BH17EZ Insertion of Endotracheal Airway into Trachea, Via Natural or Artificial Opening (ICD-10-PCS; 2018-01-09)
PROC: 5A1935Z Respiratory Ventilation, Less than 24 Consecutive Hours (ICD-10-PCS; 2018-01-09)
DX: K40.30 Unilateral inguinal hernia, with obstruction, without gangrene, not specified as recurrent (principal); J96.01 Acute respiratory failure with hypoxia; J18.9 Pneumonia, unspecified organism; N17.0 Acute kidney failure with tubular necrosis; I50.23 Acute on chronic systolic (congestive) heart failure; J44.0 Chronic obstructive pulmonary disease with (acute) lower respiratory infection; J44.1 Chronic obstructive pulmonary disease with (acute) exacerbation; I13.0 Hypertensive heart and chronic kidney disease with heart failure and stage 1 through stage 4 chronic kidney disease, or unspecified chronic kidney disease; I25.119 Atherosclerotic heart disease of native coronary artery with unspecified angina pectoris; E78.5 Hyperlipidemia, unspecified; I35.2 Nonrheumatic aortic (valve) stenosis with insufficiency; N18.3 Chronic kidney disease, stage 3 (moderate); E11.22 Type 2 diabetes mellitus with diabetic chronic kidney disease; K59.00 Constipation, unspecified; Z90.79 Acquired absence of other genital organ(s); I35.1 Nonrheumatic aortic (valve) insufficiency; Z95.1 Presence of aortocoronary bypass graft; Z88.8 Allergy status to other drugs, medicaments and biological substances; Z86.73 Personal history of transient ischemic attack (TIA), and cerebral infarction without residual deficits; Z82.49 Family history of ischemic heart disease and other diseases of the circulatory system
CPT/HCPCS: 36415; 36600; 71045; 80048; 80053; 82805; 82962; 83735; 85007; 85025; 85610; 86850; 86900; 86901; 86920; 87641; 88302; 94002; 94003; 94640; 94760; C1781; J0171; J0690; J0696; J1100; J1265; J1650; J1815; J1940; J2270; J2370; J2405; J2704; J2710; J3010; J3490; J7030; J7512; J7613; J7626; P9016; P9045